=== PATIENT | female | born 1975 | race Caucasian/White ===

== ENCOUNTER 2022-09-26 18:49 | Emergency (ER) | payer OTHER, SELFPAY ==
--- NOTE | ~2022-09-26 | XR_ITS ---
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 RESULT: Lines, tubes, and devices: None. Lungs and pleura: Mid and lower lung reticulonodular opacities. Chronic minimal posterior costophren ic angle blunting. Cardiomediastinal silhouette: Stable. Prominent central pulmonary arteries as can be seen with pulmo nary arterial hypertension. Other: No acute osseous or upper abdominal finding. IMPRESSION: Pulmonary opacities may represent bronchiolitis, as can be seen with atypical infection, asthma, aspi ration, and small airways disease. Reviewed, dictated and finalized at location K. L FLOW MACHINE OPERATOR IMPRESSION: Pulmonary opacities may represent bronchiolitis, as can be seen with atypical i nfection, asthma, aspiration, and small airways disease.
[2022-09-26 19:05] VITALS: BP 135/64; PULSE 87; RESP 16; TEMP 36.1; O2SAT 99
--- NOTE | 2022-09-26 19:37 | PC.NURSE ---
Triage note reviewed and confirmed. Pt states 7 weeks ago was diagnosed w/ URI and was prescribed steroids, but I didn't take it because I am diabetic. Denies any sob. States here for sore throat. States it might be due to the coughing. a&ox4, NAD.
--- NOTE | 2022-09-26 19:51 | ED.GENADULT ---
HPI - General Adult General Chief complaint: Unspecified Stated complaint: coughing for weeks Time Seen by Provider: 09/26/22 19:38 History of Present Illness HPI narrative: Patient is a 47-year-old female with a history of asthma here for evaluation of cough for the past month. Patient states that she has been treated by her primary care doctor with prednisone and inhaled corticosteroids without relief of her symptoms. She states that she is now coughing up green sputum and has a sore throat from the amount of coughing that she has been doing. She denies any shortness of breath, fevers or chills, sick contacts. No hemoptysis. She has not yet been tested for COVID or flu. Related Data Allergies Allergy/AdvReac Type Severity Reaction Status Date / Time haloperidol Allergy Mild DROOLING, Verified 09/26/22 19:06 UNSTEADY GAIT, BLURRED VISION peach Allergy Mild RASH Verified 09/26/22 19:06 adhesive tape Allergy Unknown RASH Verified 09/26/22 19:06 divalproex sodium AdvReac Unknown HAIR LOSS Verified 09/26/22 19:06 ZIPRASIDONE HCL Allergy Mild AKASTHESIAS Uncoded 09/26/22 19:06 ZIPRASIDONE MESYLATE Allergy Mild AKASTHESIAS Uncoded 09/26/22 19:06 Dust Allergy Unknown NASAL Uncoded 09/26/22 19:06 CONGESTION Molds and Smuts Allergy Unknown NASAL Uncoded 09/26/22 19:06 CONGESTION Review of Systems Review of Systems: Gen: Denies fevers or chills Eyes: Denies eye pain or visual change ENT: Reports sore throat. Respiratory: Reports cough. Denies shortness of breath or cough CV: Denies chest pain or palpitations GI: Denies abdominal pain nausea, emesis or diarrhea : denies burning, urgency, frequency or hematuria Musculoskeletal: Denies back pain or muscle pain Neuro: Denies numbness, tingling, weakness or focal weakness Skin: Denies rash Except as documented, all other systems reviewed and negative Exam Narrative: APPEARANCE: Well appearing, no pain in distress, well-nourished. Head: Normocephalic and atraumatic. EYES: PERRLA/EOMI, conjunctivae clear NOSE: No nasal drainage EARS: External ear normal in appearance THROAT: Tonsils are 2+ bilaterally. Oropharynx is clear. Mucous membranes are moist. NECK: Supple. No adenopathy, no masses. RESPIRATORY: Scant expiratory wheezing in the right lower lung etienne. Airway patent, respirations nonlabored. Clear to auscultation bilaterally, no rales, rhonchi, wheezing. CARDIOVASCULAR: Regular rate and rhythm without murmurs, rubs, or gallops. ABDOMINAL: Normoactive bowel sounds. Soft, nontender, nondistended. No rebound tenderness or guarding. MUSCULOSKELETAL: Extremities are warm and well-perfused. Moves all extremities well. No edema. NEURO: Normal speech. No focal neurologic deficits. SKIN: Skin is warm and dry. No rashes. PSYCHIATRIC: Normal affect/mood. Course Vital Signs Vital signs: Vital Signs Temperature 97 F L 09/26/22 19:05 Pulse Rate 87 09/26/22 19:05 Respiratory Rate 16 09/26/22 19:05 Blood Pressure 135/64 09/26/22 19:05 Pulse Oximetry 99 09/26/22 19:05 Temperature 98 F 09/26/22 21:37 Pulse Rate 79 09/26/22 21:37 Respiratory Rate 18 09/26/22 21:37 Blood Pressure 131/81 09/26/22 21:37 Pulse Oximetry 99 09/26/22 21:37 Medical Decision Making MDM Narrative Medical decision making narrative: 47-year-old female with a history of asthma here for evaluation of a cough over the past month. She is nontoxic in appearance and has slight wheezing on exam, No signs or symptoms of respiratory distress. No hypoxia. Chest x-ray show pulmonary opacities that may represent atypical infection versus bronchiolitis. COVID, flu and strep test are negative. Patient feeling improved after breathing treatment in the ED. She be discharged home with antibiotics for pneumonia and PCP follow-up. She is low risk by the PSI and appropriate for outpatient management and follow-up. Return precautions were discussed and she
[2022-09-26 20:36] LABS: Strep Group A RT-PCR NOT DETECTED (Negative)
[2022-09-26] MEDS: ALBUTEROL SULFATE NEB 2.5 MG/3 ML INH INHALATION (20:43)
[2022-09-26 20:45] VITALS: PULSE 87; RESP 16
[2022-09-26 20:49] LABS: Influenza A QL RT-PCR Negative (Negative); Influenza B QL RT-PCR Negative (Negative); SARS-CoV-2 RNA PCR Negative
[2022-09-26 21:37] VITALS: BP 131/81; PULSE 79; RESP 18; TEMP 36.6; O2SAT 99
== END 2022-09-26 21:37 | disposition home or self-care (01) ==
PROVIDERS: Emergency Provider Physician Assistant
DX: J18.9 Pneumonia, unspecified organism (principal); Z20.822 Contact with and (suspected) exposure to COVID-19; J45.909 Unspecified asthma, uncomplicated
CPT/HCPCS: 71046; 87636; 87651; 94640; 99283

== ENCOUNTER 2023-02-22 14:05 | Outpatient (CLI) | payer MEDICARE, MEDICAID, SELFPAY ==
--- NOTE | ~2023-02-22 | CT_ITS ---
CT of the Abdomen and Pelvis: Indication: Right renal angiomyolipoma Technique: 2.5 mm axial scans were obtained through the abdomen and pelvis prior to and following in travenous administration of 100 cc of Omnipaque 350. Dose reduction technique was used on this scan b y utilizing automated exposure control and iterative reconstruction technique. The dose-length produc t (DLP) was 2342.21 mGy-cm. Findings: Scans through the lung bases demonstrate 3 noncalcified left lower lobe pulmonary nodules measuring 5-6 mm each (axial images 6, 7, 10). There is additional probable linear bibasilar pleural scarring with suspected chronic rounded atelectasis at the right lung base. There is diffuse fatty infiltration of the liver. There is hepatosplenomegaly, with liver measuring 2 2 cm in length, and spleen measuring 18.4 cm in length. Pancreas, gallbladder, adrenals and left kidn ey are within normal limits. There is a 1.4 cm right renal mass, with low density and no significant enhancement, compatible with angiomyolipoma. No evidence of aortic aneurysm. No lymphadenopathy. No bowel obstruction or bowel wall thickening. There is no evidence to suggest acute appendicitis. Images through the pelvis were performed. Urinary bladder unremarkable. No pelvic mass seen. No ascit es. Impression: 1.4 cm upper pole right renal angiomyolipoma. Diffuse fatty infiltration of liver. Hepatosplenomegaly, as detailed above. Calcified left basilar pulmonary nodules, as detailed above. According to Fleischner Society criteria , for a low-risk patient, no further follow-up required. For a high-risk patient, consider 12 month f ollow-up CT. Additional probable rounded atelectasis and right basilar pulmonary scarring. If there any prior outs [facility] CT scans of the chest or abdomen, these would be useful for comparison, to establish chronicity o f the pulmonary findings at the lung bases. Reviewed, dictated and finalized at location M. Impression: 1.4 cm upper pole right renal angiomyolipoma. Diffuse fatty infiltration of liver. Hepatosplenomegaly, as detailed above. Calcified left basilar pulmonary nodules, as detailed above. According to Fleis chner Society criteria, for a low-risk patient, no further follow-up required. For a high-risk patient, consider 12 month follow-up CT. Additional probable rounded atelectasis and right basilar pulmonary scarring. I f there any prior outside CT scans of the chest or abdomen, these would be usef ul for comparison, to establish chronicity of the pulmonary findings at the tom g bases.
--- NOTE | ~2023-02-22 | XR_ITS ---
XR abdomen/kub 1V 02/22/2023 14:28 INDICATION: Angiomyolipoma of the kidney. TECHNIQUE: KUB COMPARISON: None FINDINGS: Bowel gas pattern is normal. Moderate colonic fecal loading. There is no evidence of free a ir, mass, organomegaly, ascites or obstruction. No abnormal calculi are seen. The bones appear inta ct. There is levoscoliosis. IMPRESSION: 1: No acute abdominal abnormality identified. Reviewed, dictated and finalized at location A.
[2023-02-22 14:54] LABS: Estimated Glomerular Filt Rate > 60
== END 2023-02-22 14:06 | disposition home or self-care (01) ==
PROVIDERS: PCP Family Medicine Sports Medicine; Visit Provider Nurse Practitioner Adult Health
DX: D17.71 Benign lipomatous neoplasm of kidney (principal); K76.0 Fatty (change of) liver, not elsewhere classified
CPT/HCPCS: 74018; 74178; Q9967

== ENCOUNTER 2025-03-16 23:11 | Emergency (ER) | payer MEDICARE, MEDICAID, SELFPAY ==
[2025-03-16 23:12] VITALS: BP 155/88; PULSE 75; RESP 16; TEMP 36.8; O2SAT 100
--- OUTSIDE RECORDS SUMMARY | 2025-03-16 23:13 | XMS_ITS | Clinical Summary ---
Author Organization [facility] Address [address] [place] [phone] Phone Care Team Providers Care Awning Maker Name Role Phone Vita Sanches NP Primary Care Provider Brendan Metz MD Unavailable [phone] Allergies Active Allergy Reactions Criticality Noted Date Comments Haloperidol Agitation,Other (See comments),Vision changes Medium 04/11/2018 Drooling and walking funny Unable to walk and drools Loup Other (See comments) Low 06/01/2022 Ziprasidone Hcl Agitation,Other (See comments),Vision changes Medium 04/11/2018 Drooling and walking funny Unable to walk and drools Medications Alcohol Prep Pads pads, medicated 04/08/20 22 Active blood glucose diagnostic (glucose blood) stripIndications:Hg b A1c 7.0 06/01/22, On insulin daily. E11.65, Z79.4 To check blood sugar daily 100 each 11 06/01/20 22 Active albuterol 2.5 mg /3 mL (0.083 %) nebulizer solutionIndications :Moderate persistent asthma with exacerbation,Pneumo randolph of right lower lobe due to infectious organism Take 3 mL (2.5 mg total) by nebulization 4 (four) times a day as needed for wheezing or shortness of breath 75 mL 1 11/19/19 23 Active lamoTRIgine (LaMICtal) 100 mg tablet 01/12/20 23 Active ARIPiprazole (ABILIFY) 20 mg tablet Take 1 tablet (20 mg total) by mouth daily 10/12/19 24 Active OneTouch Verio Reflect Meter miscIndications:E11 .9, Z79.4. A1c 7.9 on 10/24/23 1 each by other route daily 1 each 10/24/19 24 Active levothyroxine (SYNTHROID) 25 mcg tablet TAKE 1 TABLET BY MOUTH DAILY 100 tablet 1 12/17/19 24 Active rosuvastatin (CRESTOR) 10 mg tabletIndications:H ypertriglyceridemia Take 1 tablet (10 mg total) by mouth daily 90 tablet 4 01/25/20 24 Active lisinopriL (PRINIVIL,ZESTRIL) 2.5 mg tabletIndications:T ype 2 diabetes mellitus with diabetic polyneuropathy, with long-term current use of insulin ([facility]),Type 2 diabetes mellitus with microalbuminuria, with long-term current use of insulin ([facility]) Take 1 tablet (2.5 mg total) by mouth daily 90 tablet 1 01/25/20 24 Active fenofibrate nanocrystallized (TRICOR) 145 mg tabletIndications:H ypertriglyceridemia Take 1 tablet (145 mg total) by mouth daily 90 tablet 4 01/25/20 24 Active lancets (OneTouch Delica Plus Lancet) 30 gauge [facility] USE TO TEST ONCE DAILY 100 each 1 02/14/20 24 Active pen needle, diabetic (BD Joi 2nd Gen Pen Needle) 32 gauge x 5/32 needleIndications:T ype 2 diabetes mellitus with diabetic polyneuropathy, with long-term current use of insulin ([facility]),Type 2 diabetes mellitus with microalbuminuria, with long-term current use of insulin ([facility]),Type 2 diabetes mellitus with hyperglycemia, with long-term current use of insulin ([facility]) INJECT 1 PEN NEEDLE UNDER THE SKIN DAILY 100 each 3 03/14/20 24 Active blood-glucose sensor deviceIndications:T ype 2 diabetes mellitus with diabetic polyneuropathy, with long-term current use of insulin ([facility]) 1 each every 14 (fourteen) days Please provide whichever sensors for CGM that her insurance will cover 2 each 06/20/20 24 Active flash glucose scanning reader (FreeStyle Kalyn 2 [place]) miscIndications:Typ e 2 diabetes mellitus with diabetic polyneuropathy, with long-term current use of insulin ([facility]) 1 each once for 1 dose Please provide whichever CGM reader insurance will cover. 1 each 06/20/20 24 Active metFORMIN (GLUCOPHAGE) 1,000 mg tablet TAKE 1 TABLET(1000 MG) BY MOUTH TWICE DAILY WITH MEALS 180 tablet 1 07/26/20 24 Active albuterol HFA (PROVENTIL HFA,VENTOLIN HFA,PROAIR HFA) 90 mcg/actuation inhalerIndications: Severe persistent asthma without complication ([facility]) Inhale 2 puffs every 4 (four) hours as needed for wheezing or shortness of breath 90 each 1 10/16/19 25 Active fluticasone-umeclid in-vilanter (Trelegy Ellipta) 100-62.5-25 mcg inhalerIndications: Severe persistent asthma without complication ([facility]) Inhale 1 puff daily 90 each 1 10/16/19 25 Active montelukast (SINGULAIR) 10 mg tabletIndications:C hronic rhinitis Take 1 tablet (10 mg total) by mouth nightly 90 tablet 3 10/16/19 25 Active insulin glargine (LANTUS) 100 unit/mL (3 mL) pen for injectionIndication s:Type 2 diabetes mellitus with diabetic polyneuropathy, with long-term current use of insulin ([facility]) Inject 22 Units under the skin daily 10/25/19 25 Active semaglutide (OZEMPIC) 2 mg/dose (8 mg/3 mL) pen injector injectionIndication s:Type 2 diabetes mellitus with diabetic polyneuropathy, with long-term current use of insulin ([facility]) Inject 2 mg under the skin every 7 days 3 mL 2 01/31/20 25 Active cholecalciferol (VITAMIN D-3) 3,000 unit tabletIndications:V itamin D deficiency Take 1 tablet (3,000 Units total) by mouth daily 90 capsule 3 01/31/20 25 Active meloxicam (MOBIC) 15 mg tabletIndications:S ynovitis of hand,Positive CHRISSIE (antinuclear antibody),Polyarthr algia TAKE 1 TABLET(15 MG) BY MOUTH DAILY WITH BREAKFAST 90 tablet 08/20/19 23 025 Disconti nued(The rapy complete d) Active Problems Problem Noted Date Diagnosed Date Lipoma of right upper extremity 01/30/2025 Assessment & Plan (01/30/2025 8:32 AM CDT): -new complaint, chronic -patient endorses having a lipoma in her underarm of her right arm that has been more bothersome lately -Patient expressed interest in having an evaluation possible removal of this -Ultrasound of right under arm ordered to verify mass -Referral to surgery placed -Continue current treatment plan Preventative health care 10/24/2024 Assessment & Plan (10/24/2024 10:51 AM CDT): - New or chronic worsening conditions: hand pain, congestion/cough - Mental health: no significant psychiatric/mental health conditions affecting her day to day functioning - Dental health: Up to date with regular dental care and cleaning. Discussed importance of regular tooth brushing, flossing, and dental visits. - Nutrition: Stressed importance of moderation in sodium/caffeine intake, saturated fat and cholesterol, caloric balance, sufficient intake of fresh fruits, vegetables - Exercise: Stressed the importance of regular exercise - Immunizations: Age and sex appropriate immunizations reviewed and offered - Cervical Cancer screening: Up-to-date - Breast Cancer screening: Up-to-date - Colon cancer screening: Up-to-date, due in 2025 - Lung cancer screening: Not indicated at this time - Bone desnity/osteoporosis screening: Not indicated at this time - control: hysterectomy Left hand pain 10/24/2024 Assessment & Plan (10/25/2024 8:36 AM CDT): -New complaint, chronic -Patient endorses ongoing left hand pain that feels like her hand movement is catching on something -Previous history of carpal tunnel including surgical intervention on right hand -OTC medication and stretches provide minimal relief -Referral to Plastic surgery/hand specialists placed -Continue current treatment plan Class 1 obesity with body ma ss index (BMI) of 34.0 to 34.9 in adult 06/20/2024 Assessment & Plan (01/30/2025 8:27 AM CDT): Wt Readings from Last 3 Encounters: 01/30/25 101.5 kg (223 lb 11.2 oz) 10/24/24 99.3 kg (219 lb) 10/15/24 101.2 kg (223 lb) Body mass index is 34.52 kg/m . -Stable, not at goal of <30 bmi -Discussed recommendations for exercise at least 30 minutes moderate to vigorous exercise as tolerated most days of the week. (minimum 150 minutes weekly) -Discussed importance of well-balanced diet Assessment & Plan (10/25/2024 7:08 AM CDT): Wt Readings from Last 3 Encounters: 10/24/24 99.3 kg (219 lb) 10/15/24 101.2 kg (223 lb) 06/25/24 103.4 kg (228 lb) Body mass index is 33.79 kg/m . -Stable, not at goal of <30 bmi -Discussed recommendations for exercise at least 30 minutes moderate to vigorous exercise as tolerated most days of the week. (minimum 150 minutes weekly) -Discussed importance of well-balanced diet Assessment & Plan (06/20/2024 10:13 AM MAGAZINE JOURNALIST): Wt Readings from Last 3 Encounters: 06/19/24 100.8 kg (222 lb 4.8 oz) 02/13/24 106.4 kg (234 lb 9.6 oz) 02/09/24 102.5 kg (226 lb) Body mass index is 34.01 kg/m . -Stable, not at goal of <30 bmi -Discussed recommendations for exercise at least 30 minutes moderate to vigorous exercise as tolerated most days of the week. (minimum 150 minutes weekly) -Discussed importance of well-balanced diet Acanthosis nigricans, acquired 01/25/2024 Assessment & Plan (01/25/2024 5:29 PM CDT): Chronic. Stable. Changes noted to multiple extensor surfaces of her of her knuckles as well as extensor surface of the bilateral elbow. Reviewed diagnosis. Likely related to obesity and her insulin resistant. Thoracic aortic aneurysm without rupture, unspec ified part 10/24/2023 Assessment & Plan (01/25/2024 5:28 PM CDT): Chronic. Asymptomatic. Still needs to get in with Cardiothoracic surgery. We will go ahead and give her a new referral. Patient would like to see the [facility] doctors instead of the 1 previously referred. Referral ordered. Keep blood pressure controlled Assessment & Plan (10/24/2023 6:41 PM CDT): Borderline for thoracic aneurysm on recent CT chest. Ascending thoracic aorta measured at 4.4 cm. She has been referred to see CTS but still has to schedule. No signs of decompensation. Encouraged good blood pressure control. Given bradycardia may defer beta-juan for now but may be something to consider in the future if heart rate trends up. Reviewed signs and symptoms seek evaluation. Patient was given the contact information for the CTS surgeon for consultation Multiple pulmonary nodules 03/15/2023 Assessment & Plan (10/24/2023 6:38 PM CDT): Chronic. Mostly nodules were not concerning and just need routine monitoring. She has a wearing apparel presser who is working with her. Assessment & Plan (03/15/2023 10:25 AM CDT): Patient with low-level persistent cough. Numerous pulmonary nodules on CT. Keep upcoming appointment with pulmonology. She additionally has a repeat CT scheduled Renal angiomyolipoma 03/15/2023 Assessment & Plan (10/24/2023 6:38 PM CDT): Chronic. Saw Urology previously. They plan to just monitor as this is a low risk lesion Assessment & Plan (03/15/2023 10:25 AM CDT): Incidental finding on prior CT chest. Urology is monitoring but unlikely to be malignant Mixed dyslipidemia 09/16/2022 Assessment & Plan (01/30/2025 8:27 AM CDT): -chronic, suboptimally controlled -currently takes rosuvastatin 10 mg, fenofibrate 145 mg -Discussed importance of well-balanced diet -will recheck lab values in one month -continue current treatment plan Orders: Lipid panel; Future Assessment & Plan (10/25/2024 7:03 AM CDT): -chronic, controlled -currently takes rosuvastatin 10 mg, fenofibrate 145 mg -Discussed importance of well-balanced diet -will recheck lab values -continue current treatment plan Assessment & Plan (06/20/2024 7:05 AM MAGAZINE JOURNALIST): -chronic, stable -currently takes rosuvastatin 10 mg, fenofibrate 145 mg -Discussed importance of well-balanced diet -will recheck lab values at future visit -continue current treatment plan Assessment & Plan (01/25/2024 5:28 PM CDT): Chronic. Tolerates fenofibrate. Add rosuvastatin as needs improvement in triglycerides. Target LDL <55) Assessment & Plan (10/24/2023 6:38 PM CDT): Chronic. Tolerates fenofibrate. Monitor cholesterol med levels. If LDL is elevated above goal less than 70 then consider starting a cholesterol medication within the statin class Assessment & Plan (03/15/2023 10:23 AM CDT): Chronic. Work on diabetic diet, exercise, weight loss. Continue cholesterol medication. Consider adding statin in the future Asthma 06/01/2022 Assessment & Plan (10/25/2024 8:37 AM CDT): -chronic, suboptimally controlled -patient currently prescribed albuterol rescue inhaler, Trelegy maintenance inhaler, Singulair 10 mg, albuterol nebulizer treatments as needed -patient reports that they are currently experiencing an exacerbation of the asthma including shortness of breath, wheezing, cough -patient reports she has been using her rescue inhaler more frequently over the past few days -Prednisone taper prescribed -Chest x-ray ordered; no infectious process noted -continue current treatment plan Assessment & Plan (06/20/2024 10:09 AM MAGAZINE JOURNALIST): -chronic, stable -patient currently prescribed albuterol rescue inhaler, Trelegy maintenance inhaler, Singulair 10 mg, albuterol nebulizer treatments as needed -patient reports their asthma is fairly well-controlled on current regimen -patient reports she has been using her rescue inhaler more frequently over the past few days -See acute bacterial bronchitis A&P -continue current treatment plan Assessment & Plan (01/25/2024 5:27 PM CDT): Chronic. Relatively controlled. Continue Trelegy and p.r.n. albuterol. Encouraged to stops smoking marijuana or any other inhaled lung irritants. Assessment & Plan (10/24/2023 6:36 PM CDT): Chronic. Borderline control. Stressed compliance with Trelegy. Continue as needed albuterol. Manage triggers. Keep upcoming follow up with pulmonology Assessment & Plan (03/15/2023 10:21 AM CDT): Borderline control. Continue inhalers. Keep upcoming appointment with pulmonology given multiple pulmonary nodules on CT scan 3 months ago. Manage allergies Vitamin D deficiency 06/01/2022 Assessment & Plan (01/30/2025 8:27 AM CDT): -chronic, suboptimally controlled -patient currently takes vitamin D3 supplement -increase vitamin d supplement in 3,000 units daily -continue current treatment plan Orders: cholecalciferol (VITAMIN D-3) 3,000 unit tablet; Take 1 tablet (3,000 Units total) by mouth daily Assessment & Plan (10/25/2024 7:07 AM CDT): -chronic, controlled -patient previously took vitamin D3 supplement -will recheck lab value -continue current treatment plan Assessment & Plan (10/24/2023 6:37 PM CDT): Chronic. Check and replete as needed Low vitamin B12 level 06/01/2022 Assessment & Plan (10/25/2024 7:07 AM CDT): Lab Results Component Value Date VITB12 353 01/23/2024 -chronic, controlled -Previously took vitamin B12 supplement -most recent vitamin B12 level noted above -continue current treatment plan Assessment & Plan (10/24/2023 6:37 PM CDT): Chronic. Check and replete as needed Type 2 diabetes mellitus wit h diabetic polyneuropathy, with long-term current use of insulin 06/01/2022 Assessment & Plan (01/30/2025 8:27 AM CDT): Lab Results Component Value Date HGBA1C 7.0 (H) 11/14/2024 -chronic, controlled -patient currently takes metformin 1000 bid, ozempic 1 mg weekly, glargine 22 units nightly -patient reports checking blood sugar regularly at home -reiterated importance of diabetic foot and eye exams -most recent hemoglobin A1c shown above - worsened -will recheck lab work in one month -increase ozempic to 2 mg weekly -continue current treatment plan Orders: semaglutide (OZEMPIC) 2 mg/dose (8 mg/3 mL) pen injector injection; Inject 2 mg under the skin every 7 days Hemoglobin A1c; Future Assessment & Plan (10/25/2024 7:08 AM CDT): Lab Results Component Value Date HGBA1C 5.6 06/19/2024 -chronic, well-controlled -patient currently takes Lantus 30 units daily, metformin 1000 mg, semaglutide 1 mg weekly, glipizide 5 mg -patient reports checking blood sugar regularly at home, but states she is having a harder time poking her fingers -reiterated importance of diabetic foot and eye exams -most recent hemoglobin A1c shown above -Lantus decreased to 22 units, glipizide discontinued -Follow up in 3 months for re-evaluation -continue current treatment plan Assessment & Plan (06/20/2024 10:03 AM MAGAZINE JOURNALIST): Lab Results Component Value Date HGBA1C 5.6 06/19/2024 -chronic, stable -patient currently takes Lantus 30 units daily, metformin 1000 mg, semaglutide 1 mg weekly, glipizide 5 mg -patient reports checking blood sugar regularly at home, but states she is having a harder time poking her fingers -reiterated importance of diabetic foot and eye exams -most recent hemoglobin A1c shown above -repeat A1c much improved, we will decrease Lantus by 3 units -continue current treatment plan Assessment & Plan (01/25/2024 5:26 PM CDT): Diabetes, type II: chronic condition. Control: suboptimal. Needs improvement. Continue current medication but increase Ozempic to 1 mg. If needed we can go up to 2 mg. Really work on diet, exercise, weight loss. Briefly diabetic education performed. Updated foot exam was performed in office today. Discussed routine foot care Struggles some with her neuropathy. Previously failed gabapentin and Lyrica. Monitor. Avoid walking barefoot On GERMAN- I or ARB: yes Diabetes Education Reviewed diabetic disease process, standards of care, and possible disease complications I have discussed the following steps for improving diabetic care: diabetic diet with healthy meals that are low salt, low fat, high fiber daily 30 minutes of exercise (45-60 minutes if trying to lose weight) Encouraged to loose weight if overweight/obese, or maintain a healthy body weight if BMI normal home glucose monitoring and goals (fast 70-130 and 2 hr PP <180) HgA1C goal <7% If checking home bp, goal less than 140/90 on average, even better if <130/85 Check feet daily for sores, dryness, cracking; use daily moisturizer if needed and invest in good shoes See eye doctor at least once per year and have report sent to us Assessment & Plan (10/24/2023 6:37 PM CDT): Chronic. Uncontrolled. Needs improvement. Increase insulin to 30 units a day. Continue other medication. Stress diabetic diet, exercise and weight loss Assessment & Plan (03/15/2023 10:22 AM CDT): Chronic. Borderline control. Counseled on diabetic diet, exercise, weight loss. Encouraged routine blood sugar monitoring. Discussed risk with doing insulin injections without checking her blood sugar. Patient's eye exam is reportedly up-to-date but we never got the report. Borderline personality disorder 06/01/2022 Assessment & Plan (10/25/2024 8:35 AM CDT): -chronic, controlled -patient currently takes Abilify 20 mg -follows with psychiatry -patient denies any worsening of depressed mood, thoughts of harming herself or others, or worsening anxiety -continue current treatment plan Assessment & Plan (06/20/2024 10:10 AM MAGAZINE JOURNALIST): -chronic, stable -patient currently takes Abilify 20 mg -follows with psychiatry -patient denies any worsening of depressed mood, thoughts of harming herself or others, or worsening anxiety -continue current treatment plan Assessment & Plan (01/25/2024 5:26 PM CDT): Chronic. Stable. Continue working with Psychiatry. Monitor Assessment & Plan (10/24/2023 6:37 PM CDT): Chronic. Continue care per Psych Assessment & Plan (03/15/2023 10:21 AM CDT): Chronic. Continue medication and care per Psychiatry Attention deficit hyperactivity disorder (ADHD) 06/01/2022 Overview (06/01/2022): [facility] Assessment & Plan (10/24/2023 6:38 PM CDT): Chronic. Continue medication and care per Psychiatry. Stable Assessment & Plan (03/15/2023 10:22 AM CDT): Chronic. Continue medication and care per Psychiatry. Defer care to them Positive CHRISSIE (antinuclear antibody) 06/01/2022 Assessment & Plan (03/15/2023 10:24 AM CDT): Rheumatologic evaluation was essentially negative. It is not felt that her joint issues are related to autoimmune disease. Rheumatology will have her just follow up as needed Generalized anxiety disorder 05/03/2022 Assessment & Plan (10/25/2024 8:35 AM CDT): -chronic, controlled -patient currently takes Abilify 20 mg, Lamictal 100 mg -follows with psychiatry -patient denies any worsening of depressed mood, thoughts of harming herself or others, or worsening anxiety -continue current treatment plan Assessment & Plan (06/20/2024 10:10 AM MAGAZINE JOURNALIST): -chronic, stable -patient currently takes Abilify 20 mg, Lamictal 100 mg -follows with psychiatry -patient denies any worsening of depressed mood, thoughts of harming herself or others, or worsening anxiety -continue current treatment plan Assessment & Plan (01/25/2024 5:27 PM CDT): Chronic. Stable. Continue medication care per Psychiatry. Assessment & Plan (10/24/2023 6:37 PM CDT): Chronic. Stable on medication. Continue Assessment & Plan (03/15/2023 10:21 AM CDT): Chronic. Relatively well controlled. Continue medication and care per Psychiatry Hypothyroidism 06/12/2021 Assessment & Plan (10/25/2024 7:04 AM CDT): Lab Results Component Value Date TSH 3.79 01/23/2024 -chronic, controlled -patient currently takes Synthroid 25 mcg daily -most recent TSH within normal range -Will recheck lab value -continue current treatment plan Assessment & Plan (06/20/2024 7:08 AM MAGAZINE JOURNALIST): Lab Results Component Value Date TSH 3.79 01/23/2024 -chronic, stable -patient currently takes Synthroid 25 mcg daily -most recent TSH within normal range -continue current treatment plan Assessment & Plan (01/25/2024 5:27 PM CDT): Chronic. on levothyroxine 25 mcg daily. Takes as ordered. TSH at goal. Continue current dose Assessment & Plan (10/24/2023 6:37 PM CDT): Chronic. Relatively euthyroid. Continue Rx Assessment & Plan (03/15/2023 10:21 AM CDT): Chronic. Clinically euthyroid. Continue current thyroid medication Hepatic steatosis 04/10/2021 Assessment & Plan (10/24/2023 6:38 PM CDT): Chronic. Suboptimally controlled. Encouraged healthy diet, exercise and weight loss Assessment & Plan (03/15/2023 10:21 AM CDT): Chronic. Encouraged healthy diet, exercise, weight loss H. pylori infection 04/10/2021 Sensorineural hearing loss (SNHL) of both ears 0 01/17/2020 Overview (10/24/2023): uses aids Bipolar 1 disorder 06/14/2018 Assessment & Plan (10/25/2024 8:35 AM CDT): -chronic, controlled -patient currently takes Abilify 20 mg -follows with psychiatry -patient denies any worsening of depressed mood, thoughts of harming herself or others, or worsening anxiety -continue current treatment plan Assessment & Plan (06/20/2024 10:10 AM MAGAZINE JOURNALIST): -chronic, stable -patient currently takes Abilify 20 mg -follows with psychiatry -patient denies any worsening of depressed mood, thoughts of harming herself or others, or worsening anxiety -continue current treatment plan Assessment & Plan (01/25/2024 5:27 PM CDT): Chronic. Stable. Continue medication and care per Psychiatry. Patient is able to contract for safety Assessment & Plan (10/24/2023 6:37 PM CDT): Chronic. Some recent manic symptoms that are improving with since medication adjustment. Monitor. Discussed if any severe symptoms to seek urgent evaluation Assessment & Plan (03/15/2023 10:21 AM CDT): Chronic. Relatively stable on medication. 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 Mental status has been stable Urinary incontinence 06/14/2018 Assessment & Plan (01/25/2024 5:30 PM CDT): Chronic. Continues to struggle some. Continue working with Urology. Assessment & Plan (10/24/2023 6:38 PM CDT): Chronic. Follows with Urology. Plans bladder sling at some point but has not yet been done. Monitor symptoms. Assessment & Plan (03/15/2023 10:25 AM CDT): Patient is working with Urology. She reports that they are planning to do a bladder suspension in the future S/P complete hysterectomy 06/14/2018 Resolved Problems Problem Noted Date Diagnosed Date Resolved Date Central adiposity 01/25/2023 01/25/2024 Assessment & Plan (03/15/2023 10:23 AM CDT): Patient saw Endocrinology. Evaluation was negative for Danielle's. Counseled patient on healthy diet, exercise, weight loss Assessment & Plan (01/25/2023 4:07 PM CDT): Pathophysiology of pituitary adrenal axis was explained to the patient Some clinical features of hypercortisolism Will request 1 mg dexamethasone suppression test Further recommendations to follow, if indicated Peripheral neuropathy 06/01/20222023 Type 2 diabetes mellitus with hyperglycemia 06/01/2022 03/15/2023 Type 2 diabetes mellitus wit h microalbuminuria, with long-term current use of insulin 06/01/2022 06/19/2024 Assessment & Plan (01/25/2024 5:26 PM CDT): Diabetes, type II: chronic condition. Control: suboptimal. Needs improvement. Continue current medication but increase Ozempic to 1 mg. If needed we can go up to 2 mg. Really work on diet, exercise, weight loss. Briefly diabetic education performed. Updated foot exam was performed in office today. Discussed routine foot care Struggles some with her neuropathy. Previously failed gabapentin and Lyrica. Monitor. Avoid walking barefoot On GERMAN- I or ARB: yes. Continue for microalbuminuria Diabetes Education Reviewed diabetic disease process, standards of care, and possible disease complications I have discussed the following steps for improving diabetic care: diabetic diet with healthy meals that are low salt, low fat, high fiber daily 30 minutes of exercise (45-60 minutes if trying to lose weight) Encouraged to loose weight if overweight/obese, or maintain a healthy body weight if BMI normal home glucose monitoring and goals (fast 70-130 and 2 hr PP <180) HgA1C goal <7% If checking home bp, goal less than 140/90 on average, even better if <130/85 Check feet daily for sores, dryness, cracking; use daily moisturizer if needed and invest in good shoes See eye doctor at least once per year and have report sent to us Assessment & Plan (10/24/2023 6:37 PM CDT): Chronic. Uncontrolled. Continue GERMAN inhibitor for renal protection. If continues to struggle with diabetes we can always consider adding an SGLT2 for renal benefits Assessment & Plan (03/15/2023 10:22 AM CDT): Chronic. Monitor renal function. Work on diabetic control. On GERMAN inhibitor Benign hypertension 06/12/2021 10/24/19 24 Multifocal pneumonia 06/12/2021 024 Family history of colonic polyps 11/17/2020 01/25/2024 Acquired intellectual disability 06/14/2018 10/24/2023 Encounters Date Type Department Care Team Description 03/15/2025 10:55 AM CDT Anesthesia Event [facility] Operating Room 1 [place] [address] Adele Jackson MD Alexander, Jeffrey Michael, 03/15/2025 10:40 AM CDT - 03/15/2025 11:40 AM CDT Surgery [facility] Operating Room 1 [place] [address] Myron Espino MD EXCISION OF LIPOMA OF RIGHT ARM 03/15/2025 8:59 AM CDT - 03/15/2025 12:57 PM CDT Hospital Encounter [facility] Operating Room 1 [place] [address] Myron Espino MD Lipoma of right upper extremity Discharge Disposition: Discharge to home or self care 03/08/2025 Nurse Triage [facility] Primary Care at [address] [place] [phone] Vita Sanches NP 03/08/2025 Telephone [facility] Medical [facility] Primary Care at [address] [place] [phone] Vita Sanches NP Recommendation Request 03/01/2025 Results Follow-Up [facility] Primary Care at [address] [place] [address] Radha Sanchez NP US Upper Extremity Right Limited 02/14/2025 9:30 AM CDT Office Visit [facility] [address] [place] [phone] Myron Espino MD Lipoma of right upper extremity 02/13/2025 ACO Medication Access [facility] Care Organization [address] [place] [id number] Maria M Blanchard CPhT 02/08/2025 3:36 PM CDT - 02/08/2025 11:59 PM CDT Hospital Encounter [facility] 1 [place] [address] Lipoma of right upper extremity; Right arm pain Discharge Disposition: Discharge to home or self care 01/30/2025 8:00 AM CDT Office Visit [facility] Primary Care at [address] [phone] Vita Sanches NP Type 2 diabetes mellitus with diabetic polyneuropathy, with long-term current use of insulin (HCC) (Primary Dx); Mixed dyslipidemia; Lipoma of right upper extremity; Vitamin D deficiency; Class 1 obesity with body mass index (BMI) of 34.0 to 34.9 in adult, unspecified obesity type, unspecified whether serious comorbidity present 01/30/2025 Telephone [facility] Primary Care at [address] [phone] Vita Sanches NP Med Refill 01/30/2025 Orders Only [facility] Medical [facility] Primary Care at [address] [phone] Vita Sanches NP Right arm pain (Primary Dx); Lipoma of right upper extremity from Last 3 Months Immunizations Immunization Administration Dates Next Due Influenza, Unspecified 10/24/2024(Deferr ed: Patient Refused),05/01/2024(Deferred: Patient Refused),08/01/2022(Deferred: Patient Refused) Moderna SARS-CoV-2 Monovalen t Vaccination (12+ YRS) 10/17/2020,09/19/2020 Pneumococcal Conjugate Pcv20 01/25/2024 Pneumococcal Polysaccharide PPV23 06/17/2021 Surgical History Surgery Date Site/Laterality Comments HYSTERECTOMY W/ BILATERAL SALPINGOOPHORECTOMY for bleeding. had associated ovarian cyst CARPAL TUNNEL RELEASE Left GANGLION CYST EXCISION left hand PLASTIC SURGERY nose job, deviated septum repair, chin implant TYMPANOSTOMY TUBE PLACEMENT PATELLA SURGERY Bilateral bilateral lateral release ULNAR NERVE TRANSPOSITION Left ? release vs transposition HYSTERECTOMY COSMETIC SURGERY 1990 Medical History Medical History Date Comments Bipolar 1 disorder (HCC) High cholesterol Fatty liver Hypothyroidism PTSD (post-traumatic stress disorder) Diabetes (HCC) Diabetic neuropathy (HCC) Female bladder prolapse Developmental delay 06/01/2022 Generalized anxiety disorder 05/03/2022 Peripheral neuropathy 06/01/2022 Vitamin D deficiency 06/01/2022 Low vitamin B12 level 06/01/2022 Asthma 06/01/2022 Borderline personality disorder (HCC) 06/01/2022 Attention deficit hyperactivity disorder (ADHD) 06/01/2022 care per [facility] Sensorineural hearing loss (SNHL) of both ears 0 01/17/2020 uses aids NAFLD (nonalcoholic fatty liver disease) 022 GERD (gastroesophageal reflux disease) Arthritis Depression Bulimia nervosa Type 2 diabetes mellitus Family History Medical History Relation Name Comments Depression Brother Jayme Mental illness Daughter Kay Obesity Daughter Kay Rashes / Skin problems Daughter Kay Danielle syndrome Father Terrell Diabetes Father Terrell Hypertension Father Terrell Neuropathy Father Terrell brain tumor Father Terrell Cancer Father's Brother 1 Kirk Diabetes Father's Brother 1 Kirk Cancer Father's Brother 2 Lázaro Breast cancer Father's Sister 1 Deidre Diabetes Father's Sister 1 Deidre Diabetes Father's Sister 2 Gema Heart attack Father's Sister 2 Gema Cancer Maternal Grandfather Max Heart attack Maternal Grandfather Max Heart disease Maternal Grandfather Max Cancer Maternal Grandmother Shelba Allergy (severe) Mother Erika Arthritis Mother Erika Asthma Mother Erika defects Mother Erika Hearing loss Mother Erika Hypertension Mother Erika Lung disease Mother Erika unable to use l ungs fully. on oxygen. ? weak diaphragm vs restrictive lung disease Obesity Mother Erika No Known Problems Paternal Grandfather Heart disease Paternal Grandmother Roma Relation Name Status Comments Brother Jayme Alive Daughter Kay Alive Father Terrell Alive Father's Brother 1 Kirk Father's Brother 2 Lázaro Father's Sister 1 Deidre Alive Father's Sister 2 Gema Maternal Grandfather Max Maternal Grandmother Debbie Mother Erika Alive Paternal Grandfather Paternal Grandmother Roma Social History Tobacco Use Types Packs/Day Years Used Date Smoking Tobacco: Never Smokeless Tobacco: Never Tobacco Cessation:Counseling Given: Not Answered Alcohol Use Standard Drinks/Week Comments Never 0 (1 standard drink = 0.6 oz pur e alcohol) PHQ-2 Answer Date Recorded PHQ-2 Total Score (If total score is 3 or more points, staff should administer the PHQ-9) 0 01/30/2025 PHQ-9 Answer Date Recorded PHQ-9 Total Score 2 10/24/2023 AUDIT-C Answer Date Recorded Q1: How often do you have a drink containing alcohol? Never 03/15/2025 Q2: How many drinks containi ng alcohol do you have on a typical day when you are drinking? Patient does not drink Q3: How often do you have si x or more drinks on one occasion? Never 03/15/2025 Personal Safety Answer Date Recorded Have you ever been in or are you currently in a harmful physical or emotional relationship or is someone making you feel afraid or unsafe? Denies 03/15/2025 Comments No Sex and Gender Information Value Date Recorded Sex Assigned at Not on file Legal Sex Female 2:07 PM CDT Gender Identity Not on file Sexual Orientation Not on file Obstetrics History Para Term AB IAB SAB Ectopic Multiple Livin g Live Births 1 1 1 Date Outcome GA Total Labor Labor/2nd/3rd Weight Sex Type Anes PTL Karissa A1 A5 Name Clin Term Last Filed Vital Signs Vital Sign Reading Time Taken Comments Blood Pressure 145/74 03/15/2025 12:50 PM CDT Pulse 64 03/15/2025 12:50 PM CDT Temperature 36.4 C (97.5 F) 03/15/2025 12:50 PM CDT Respiratory Rate 18 03/15/2025 12:50 PM CDT Oxygen Saturation 97% 03/15/2025 12:50 PM CDT Inhaled Oxygen Concentration - - Weight 99.5 kg (219 lb 5.7 oz) 03/15/2025 9:00 A M CDT Height 170.2 cm (5' 7) 03/15/2025 9:00 AM CDT Body Mass Index 34.36 03/15/2025 9:00 AM CDT Plan of Treatment Health Maintenance Due Date Last Done Comments DTaP/Tdap/Td Vaccine (1 - Tdap) 1987 Dilated Eye Exam 04/08/2024 04/08/2023 Albumin Creatinine Ratio, Urine 01/22/2025 01/23/2024, 06/01/2022 Breast Cancer Screening-Mammogram 03/13/2025 03/13/2024, 10/10/2019 Influenza Vaccine (#1) 2025 Hemoglobin A1C 05/16/2025 11/14/2024, 06/01, 01/25/2024, Additional history exists Covid-19 Vaccine () 06/19/2025 10/17/2020, 09/19/2020 Postponed from 04/01/2024 (Patient declined, but will receive in the future) Foot Exam 10/24/2025 10/24/2024, 12/31, 10/24/2023, Additional history exists Regular Well Visit/Exam 18-64 10/24/2025 10/24/2024, 10/24/2024, 10/24/2023 Lipid Panel 11/14/2025 11/14/2024, 12/31, 05/04/2023, Additional history exists eGFR 11/14/2025 11/14/2024, 06/01, 01/23/2024, Additional history exists Colon Cancer Screening-Colonoscopy 11/17/2025 11/17/2020 Depression Screening 01/30/2026 01/30/2025, 10/24/2024, 06/19/2024, Additional history exists Hepatitis C Screening Completed 12/08/2022 Pneumococcal vaccine <65 Completed 01/25/2024, 06/01 Hepatitis B Screening Completed 11/14/2024 Procedures Procedure Name Priority Date/Time Associated Diagnosis Comments POCT GLUCOSE DEVICE Routine 03/15/2025 1 1:54 AM CDT POCT GLUCOSE DEVICE Routine 03/15/2025 9 :28 AM CDT US UPPER EXTREMITY RIGHT LIMITED Schedule Routine, Read Routine (OP Routine) 02/08/2025 4:01 PM CDT Lipoma of right upper extremity Right arm pain COMPREHENSIVE METABOLIC PANEL Routine 11/14/2024 10:14 AM CDT Preventative health care HEMOGLOBIN A1C Routine 11/14/2024 10:14 AM CDT Type 2 diabetes mellitus with diabetic polyneuropathy, with long-term current use of insulin (HCC) LIPID PANEL Routine 11/14/2024 10:14 AM CDT Preventative health care Mixed dyslipidemia DIAGNOSTIC MAMMOGRAM BILATERAL W ADRI Schedule Routine, Read Routine (OP Routine) 03/13/2024 10:15 AM CDT Encounter for screening mammogram for malignant neoplasm of breast Mass of right breast, unspecified quadrant Lumpy breasts, right ALBUMIN CREATININE RATIO, URINE Routine 01/23/2024 10:29 AM CDT Annual physical exam Type 2 diabetes mellitus with diabetic polyneuropathy, with long-term current use of insulin (HCC) Type 2 diabetes mellitus with microalbuminuria, with long-term current use of insulin (HCC) Type 2 diabetes mellitus with proteinuria (HCC) DIABETES EYE EXAM Routine 04/08/2023 HEPATITIS C ANTIBODY Routine 12/08/2022 8:52 AM CDT Pain in other joint Pain in both hands Neuropathy Encounter for medication monitoring COLONOSCOPY Routine 11/17/2020 from Last 3 Months or Most Recently Relevant to Health Maintenance Results * POCT glucose (03/15/2025 11:54 AM CDT) Glucose, POC 144 70 - 199 mg/dL Blood 03/15/2025 11:5 4 AM CDT 03/15/2025 11:54 AM CDT Myron Espino MD LAB POCT ORDERABLES - DEVICE Final Result [facility] ([facility]) [address] [facility] [place] [address] * POCT glucose (03/15/2025 9:28 AM CDT) Glucose, POC 178 70 - 199 mg/dL Blood 03/15/2025 9:28 AM CDT 03/15/2025 9:28 AM CDT Myron Espino MD LAB POCT ORDERABLES - DEVICE Final Result Performing Organization Address [facility] Co de Phone Number [facility]OREN DÍAZ (MAREN[place]) [address] [facility] [place] [address] * US Upper Extremity Right Limited (02/08/2025 4:01 PM CDT) Anatomical Region Laterality Modality Upper Extremities Right Ultrasound 03/01/2025 7:27 AM CDT Narrative 03/01/2025 7:28 AM CDT EXAM DESCRIPTION: US UPPER EXTREMITY RIGHT LIMITED REASON FOR STUDY: Right posterior upper arm palpable lump for a couple years. TECHNIQUE: A Dynamic assessment was performed of the localized site designated by the patient by the composite bond worker, with selected grayscale and color Doppler images acquired and recorded in PACS. COMPARISON: None available FINDINGS: SKIN AND SUBCUTANEOUS TISSUES: Solid focus identified appears to correspond with palpable abnormality. Measures 4.1 x 3.8 x 1.0 cm. No fluid components or echogenic foci to suggest calcification. Internal flow without hypervascularity. Striated echotexture similar to surrounding fat could indicate presence of underlying lipoma. DEEP SOFT TISSUES/MUSCLES: No masses. No fluid collections. No edema. OTHER: No other significant finding. IMPRESSION: 4.1 cm solid lesion appears to correspond with palpable abnormality. This could indicate a lipoma. THIS IS AN ELECTRONICALLY VERIFIED FINAL REPORT 03/01/2025 7:28 AM - Electronically signed by Derrell Simpson M.D. RB: ELIOT Report ID: [id number] Reading Location: [place] [address] Procedure Note Derrell Simpson MD - 03/01/2025 EXAM DESCRIPTION: US UPPER EXTREMITY RIGHT LIMITED REASON FOR STUDY: Right posterior upper arm palpable lump for a couple years. TECHNIQUE: A Dynamic assessment was performed of the localized site designated by the patient by the composite bond worker, with selected grayscale and color Doppler images acquired and recorded in PACS. COMPARISON: None available FINDINGS: SKIN AND SUBCUTANEOUS TISSUES: Solid focus identified appears to correspond with palpable abnormality. Measures 4.1 x 3.8 x 1.0 cm. No fluid components or echogenic foci tosuggest calcification. Internal flow without hypervascularity. Striatedechotexture similar to surrounding fat could indicate presence of underlying lipoma. DEEP SOFT TISSUES/MUSCLES: No masses. No fluid collections. No edema. OTHER: No other significant finding. IMPRESSION: 4.1 cm solid lesion appears to correspond with palpable abnormality. This could indicate a lipoma. THIS IS AN ELECTRONICALLY VERIFIED FINAL REPORT 03/01/2025 7:28 AM - Electronically signed by Derrell Simpson M.D. RB: ELIOT Report ID: [id number] Reading Location: [place] [address] Vita Sanches NP IMG US PROCEDURES Final Result * (ABNORMAL) Hemoglobin A1c (11/14/2024 10:14 AM CDT) Hgb A1C 7.0(H) <5.7 % of total Hgb [facility] Comment: For someone without known diabetes, a hemoglobin A1c value of 6.5% or greater indicates that they may have diabetes and this should be confirmed with a follow-up test. For someone with known diabetes, a value <7% indicates that their diabetes is well controlled and a value greater than or equal to 7% indicates suboptimal control. A1c targets should be individualized based on duration of diabetes, age, comorbid conditions, and other considerations. Currently, no consensus exists regarding use of hemoglobin A1c for diagnosis of diabetes for children. Blood 11/14/2024 10:1 4 AM CDT 11/14/2024 10:16 AM CDT Narrative [facility] - 11/15/2024 6:37 AM CDT FASTING:YES FASTING: YES Vita Sanches NP LAB BLOOD ORDERABLES Fi nal Result [facility] [address] [place] [address] * (ABNORMAL) Lipid panel (11/14/2024 10:14 AM CDT) Pathologist [facility] Cholesterol 167 <200 mg/dL [employer] [facility] HDL 30(L) > OR = 50 mg/dL [facility] Triglycerides 545(H) <150 mg/dL [facility] Comment: If a non-fasting specimen was collected, consider repeat triglyceride testing on a fasting specimen if clinically indicated. Morales et al. J. of Clin. Lipidol. 2015;9:129-169. There is increased risk of pancreatitis when the triglyceride concentration is very high (> or = 500 mg/dL, especially if > or = 1000 mg/dL). Morales et al. J. of Clin. Lipidol. 2015;9:129-169. LDL mg/dL (calc) [facility] Comment: LDL cholesterol not calculated. Triglyceride levels greater than 400 mg/dL invalidate calculated LDL results. Reference range: <100 Desirable range <100 mg/dL for primary prevention; <70 mg/dL for patients with CHD or diabetic patients with > or = 2 CHD risk factors. LDL-C is now calculated using the Juventino calculation, which is a validated novel method providing better accuracy than the Friedewald equation in the estimation of LDL-C. Carlos ASENCIO et al. REG. 2013;310(19): 0806-3050 (http://education.[employer].BLAZER [employer] FLIP [employer]OPS/faq/WQF408) Chol/HDL ratio 5.6(H) <5.0 (calc) [facility]anda [facility] Non-HDL, (LDL+VLDL) 137(H) <130 mg/dL (calc) [facility] Comment: For patients with diabetes plus 1 major ASCVD risk factor, treating to a non-HDL-C goal of <100 mg/dL (LDL-C of <70 mg/dL) is considered a therapeutic option. Blood 11/14/2024 10:1 4 AM CDT 11/14/2024 10:16 AM CDT Narrative [facility] - 11/15/2024 6:37 AM CDT FASTING:YES FASTING: YES us Vita Sanches NP LAB BLOOD ORDERABLES nal Result [facility] [address] [place] [address] * (ABNORMAL) Comprehensive metabolic panel (11/14/2024 10:14 AM CDT) Glucose 248(H) 65 - 99 mg/dL [facility] Comment: Fasting reference interval For someone without known diabetes, a glucose value >125 mg/dL indicates that they may have diabetes and this should be confirmed with a follow-up test. BUN 9 7 - 25 mg/dL [facility] Creatinine 0.44(L) 0.50 - 0.99 mg/dL [facility] Sin eGFR 119 > OR = 60 mL/min/1.7 3m2 [facility] BUN/creat ratio 20 6 - 22 (calc) [facility] Sodium 132(L) 135 - 146 mmol/L [facility] Potassium, pl 4.5 3.5 - 5.3 mmol/L [facility] Chloride 97(L) 98 - 110 mmol/L [facility] CO2 27 20 - 32 mmol/L [facility] Calcium 8.7 8.6 - 10.2 mg/dL [facility] Protein, sr 6.5 6.1 - 8.1 g/dL [facility] Albumin 4.0 3.6 - 5.1 g/dL [facility] GLOBULIN 2.5 1.9 - 3.7 g/dL (calc) [facility] Alb/glob ratio 1.6 1.0 - 2.5 (calc) [facility] Bilirubin, total 0.7 0.2 - 1.2 mg/dL [facility] Alk phos 92 31 - 125 U/L [facility] AST 25 10 - 35 U/L [facility] ALT (SGPT) 33(H) 6 - 29 U/L [facility] Blood 11/14/2024 10:1 4 AM CDT 11/14/2024 10:16 AM CDT Narrative [facility] - 11/15/2024 6:37 AM CDT FASTING:YES FASTING: YES us Vita Sanches NP LAB BLOOD ORDERABLES Fi nal Result [facility] [address] [place] [address] * DIAGNOSTIC MAMMOGRAM BILATERAL W ADRI (03/13/2024 10:15 AM CDT) Anatomical Region Laterality Modality Breast Bilateral Mammography 03/13/2024 11:0 9 AM CDT Impressions 03/13/2024 11:09 AM CDT No evidence of malignancy. This is correspond to the palpable area of concern in the right breast. Follow-up in 1 year with screening mammography is recommended. BI-RADS: 2 - Benign. The patient has been or will be contacted. The patient will be entered into a reminder system with a target due date of 1 year for her next mammogram. Electronically signed by: Atiya Carrington M.D. Narrative 03/13/2024 11:09 AM CDT EXAMINATION: DIAGNOSTIC MAMMOGRAM BILATERAL W ADRI, US BREAST RIGHT LIMITED ORDERING HEALTHCARE PROVIDER: KRISTINE THRASHER HISTORY: Patient palpates a mass in the right breast. COMPARISON: 10/10/2019, 01/05/2018, 12/29/2017 TECHNIQUE: CC and MLO routine views of the Bilateral breasts were obtained with digital technique using breast tomosynthesis with C view. Computer aided detection was utilized. This was followed by targeted right breast sonography. FINDINGS: The breast tissue is heterogeneously dense, which may obscure small masses. There are benign-appearing calcifications bilaterally. There are no suspicious masses, calcifications, or architectural distortion. No lesions are seen underlying the palpable area of concern in the upper inner right breast. Further evaluation was obtained with sonography. Targeted right breast ultrasound: At the palpable area of concern at the 1 o'clock position of the right breast, 7 cm from the nipple, there is a 6 mm cyst. This appears to correspond to the palpable area of concern. No suspicious lesions are seen. Kristine Thrasher MD IMG MAMMO PROCEDURES F inal Result * (ABNORMAL) Albumin Creatinine Ratio, Urine (01/23/2024 10:29 AM CDT) Pathologist [facility] Albumin Ur 71.6 mg/L Comment: Interpretive Data No reference range established. Current interpretive data was last revised 2018. Creatinine Ur 33.5 mg/dL [facility] Comment: Interpretive Data No reference range established. Current interpretive data was last revised 2018. Albumin Creatinine Ratio, Ur 214(H) 1 - 29 mg/g [facility] Urine 01/23/2024 10:2 9 AM CDT 01/23/2024 2:17 PM CDT Kristine Thrasher MD LAB URINE ORDERABLES F inal Result [facility] [address] Department [place] [address] * DIABETES EYE EXAM (04/08/2023) Pathologist [facility] SCRIBED DIABETIC DILATED EYE EXAM Normal Hakeem Rodriguez MD HEALTH MAINTENANCE Final Result * Hepatitis C antibody (12/08/2022 8:52 AM CDT) Pathologist [facility] Hep C Ab Nonreactive Nonreactive [facility] Comment: Interpretive Data Nonreactive: Antibodies to HCV not detected. Does NOT exclude the possibility of recent exposure to HCV. Equivocal: Equivocal for HCV antibodies. Supplemental molecular testing will be automatically performed to determine infection status in accordance with current CDC screening recommendations. Reactive: Positive for HCV antibodies. This may represent current or past HCV infection. Supplemental molecular testing will be automatically performed to determine current infection status in accordance with current CDC screening recommendations. Interpretive data was last revised on 2019. Blood 12/08/2022 8:52 AM CDT 12/08/2022 2:13 PM CDT Latricia Kirk MD LAB MICROBIOLOGY - GENERAL ORDERABLES Final Result [facility] [address] Department [place] [address] * COLONOSCOPY (11/17/2020) Scribed Colonoscopy Normal Comment:at [facility] Historical Provider HEALTH MAINTENANCE Final Result from Last 3 Months or Most Recently Relevant to Health Maintenance Insurance [facility] MEDICARE ADVANTAGE IDPA [facility] MEDICARE ADVANTAGE IDPA Care Teams Awning Maker Relationship Specialty Start Date End Date Vita Sanches NP [address] [place] [address] PCP - General Family Medicine 06/19/24 Brendan Metz MD [address] [place] [address] [place] [id number] Consulting Physician Pulmonary Disease 01/30/25
--- OUTSIDE RECORDS SUMMARY | 2025-03-16 23:13 | XMS_ITS | Encounter Summary ---
Author Organization [facility] Healthcare Address [address] [place] [address] Care Team Providers Care Center Lead Consultant Name Role Phone Vita Sanches NP Primary Care Provider Brendan Metz MD Unavailable [phone] Reason for Visit * Reason Onset Date Comments Test Results 03/01/2025 Encounter Details Date Type Department Care Team ([facility] st Contact Info) Description 03/01/2025 Results Follow-Up [facility] Medical Group Primary Care at [address] [place] [address] Radha Sanchez NP [address] [place] [address] [address] [place] [address] [place] Upper Extremity Right Limited Social History Tobacco Use Types Packs/Day Years Used Date Smoking Tobacco: Never Smokeless Tobacco: Never AUDIT-C Answer Date Recorded Q1: How often do you have a drink containing alcohol? Never 01/30/2025 Q2: How many drinks containi ng alcohol do you have on a typical day when you are drinking? Patient does not drink Q3: How often do you have si x or more drinks on one occasion? Never 01/30/2025 PHQ-2 Answer Date Recorded PHQ-2 Total Score (If total score is 3 or more points, staff should administer the PHQ-9) 0 01/30/2025 PHQ-9 Answer Date Recorded PHQ-9 Total Score 2 10/24/2023 Comments No Sex and Gender Information Value Date Recorded Sex Assigned at Not on file Legal Sex Female 2:07 PM CDT Gender Identity Not on file Sexual Orientation Not on file documented as of this encounter Miscellaneous Notes * Telephone Encounter - Consuelo Peacock MA - 03/01/2025 10:10 AM CDT Patient stated that she was already referred to a surgeon and she is getting the lipoma removed on 03/15/2025. Just for your information documented in this encounter Plan of Treatment Not on file documented as of this encounter Visit Diagnoses Not on filedocumented in this encounter Care Teams Center Lead Consultant Relationship Specialty Start Date End Date Vita Sanches NP [address] [place] [address] PCP - General Family Medicine 06/19/24 Brendan Metz MD [address] [place] [address] Consulting Physician Pulmonary Disease 01/30/25 documented as of this encounter
--- OUTSIDE RECORDS SUMMARY | 2025-03-16 23:13 | XMS_ITS ---
Author Organization [facility] [employer] [facility] Address [facility] [address] [address] Care Team Providers Care Business Services Clerk Name Role Phone Vita Anand Primary Care Provider Un available Sophia Smith Unavailable [phone] Toya Ricci Unavailable [phone] REASON FOR VISIT 2 week f/u Therapy Social History Sex Assigned At : Social History Observation Description Sex Assigned At Female Encounters Encounter Location Date Provider Diagnosis [facility] [place] [id number] [facility] [address] [facility] [address] [place] [address] 02/22/2025 Toya Ricci Plan Of Treatment Next Appt Details Provider Name:Toya Ricci , 03/22/2025 09:00:00 AM, [address] [place] [address], [address], [address], Provider Name:Sophia mae, 05/15/2025 02:00:00 PM, [address] [place] [address], [address], [address], Progress Notes * MISAEL RICHARDSON LDOB:1974 (49 yo F)Acc No.[id number]:02/22/2025 Patient: Juan A MISAEL COBOS Provider: Stephon RICCI LCSW :1975 A ge:49 Y S ex:Female Date:02/22/2025 Address:[address] [place], [place] [id number] Pcp:Vita OZUNAP Data: * Chief Complaints: * 1 . 2 week f/u Therapy. Assessment: Plan: * Treatment: * Billing Information: * Visit Code: * Procedure Codes: * Electronic signature of Amanda Ricci LCSW on 03/16/2025 at 11:13 PM CDT Sign off status: Pending Signatures: No Ad Hoc Signature Added * Provider: Stephon RICCI LCSW Date: 0 02/22/2025 Generated for Jossue vogt/Griselda/Walker on: 0 03/16/2025 11:13 PM CDT
--- OUTSIDE RECORDS SUMMARY | 2025-03-16 23:13 | XMS_ITS | Clinical Summary ---
Author Organization [facility] Address [address] [address] Phone Care Team Providers Care Master Control Technician Name Role Phone Unavailable Primary Care Provider Unavailabl e Allergies Active Allergy Reactions Criticality Noted Date Comments Haloperidol Lactate Other (See Comments) 2017 Unable to walk and drools Ziprasidone Hcl Other (See Comments) 04/11/2018 Unable to walk and drools Medications metFORMIN (GLUCOPHAGE) 1,000 mg tablet Take 1,000 mg by mouth 2 times daily with meals. Active glipiZIDE (GLUCOTROL) 5 mg tablet Take 5 mg by mouth 2 times daily with meals. Active albuterol HFA 90 mcg inhaler Take 2 Puffs by inhalation every 6 hours as needed for Wheezing or Shortness of Breath. 8.5 Gram 9 Active lamoTRIgine (LaMICtal) 25 mg tablet Take 200 mg by mouth daily. Active liraglutide (VICTOZA 2-DOMONIQUE SUBCUT) Inject by subcutaneous injection late in the day. Active insulin detemir U-100 (Levemir U-100 Insulin) 100 unit/mL vial Inject 18 Units by subcutaneous injection daily at bedtime. Active pregabalin (LYRICA) 75 mg Capsule TAKE 1 CAPSULE BY MOUTH THREE TIMES A DAY 90 Capsule 5 0 Active ARIPiprazole (ABILIFY) 1 mg/mL solution Take by mouth every 30 days. Active famotidine (PEPCID) 20 mg tablet Take 20 mg by mouth 2 times daily. Active lisinopriL (PRINIVIL) 2.5 mg tablet Take 2.5 mg by mouth daily. Active levothyroxine 88 mcg tablet Take 88 mcg by mouth daily in the morning. Active predniSONE (DELTASONE) 10 mg tablet Take orally: 4 tabs daily for 2 days then 3 tabs daily for 3 days then 2 tabs daily for 3 days then 1 tab daily for 3 days then stop. 26 Tablet Active Active Problems Problem Noted Date Diagnosed Date Multifocal pneumonia 06/12/2021 Benign hypertension 06/12/2021 Hypothyroidism 06/12/2021 Hepatic steatosis 04/10/2021 H. pylori infection 04/10/2021 Family history of colonic po lyps--due next colonoscopy October 2025 11/17/2020 Sensorineural hearing loss (SNHL) of both ears 0 01/17/2020 Bipolar 1 disorder 06/14/2018 Urinary incontinence 06/14/2018 Uncontrolled type 2 diabetes mellitus with hyper glycemia 06/14/2018 Mental developmental delay 06/14/2018 Acquired intellectual disability 06/14/2018 S/P complete hysterectomy 09/2017 [place] 2017 Resolved Problems Problem Noted Date Diagnosed Date Resolved Date Acute respiratory failure with hypoxia 06/12/2021 06/17/2021 Asthma exacerbation 06/12/2021 06/17/20 21 Immunizations Immunization Administration Dates Next Due (PNEUMOVAX 23)(50 YRS UP) PN EUMOCOCCAL POLYSACCHARIDE (PPV23) 0.5 ML, IM 06/17/2021 Family History Medical History Relation Name Comments Depression Brother Dionicio Dougherty Depression Daughter Kay Lowry Thyroid Disease Daughter Kay Lowry Diabetes Father Terrell Dougherty Hypertension Father Terrell Dougherty Cancer Maternal Grandfather Heart Disease Maternal Grandfather Hypertension Maternal Grandfather Lung Cancer Maternal Grandmother Hypertension Mother Erika Dougherty Respiratory Disease Mother Erika Dougherty Other Paternal Grandfather Diabetes Paternal Grandmother Heart Disease Paternal Grandmother Colon Cancer Neg Hx Relation Name Status Comments Brother Dionicio Dougherty Alive Daughter Kay Lowry Alive Father Terrell Dougherty Alive Maternal Grandfather Alive Maternal Grandmother Mother Erika Dougherty Alive Paternal Grandfather murdere d Paternal Grandmother Social History Tobacco Use Types Packs/Day Years Used Date Smoking Tobacco: Never Smokeless Tobacco: Never Alcohol Use Standard Drinks/Week Comments Yes 0 (1 standard drink = 0.6 oz pur e alcohol) rare Comments No Sex and Gender Information Value Date Recorded Sex Assigned at Not on file Legal Sex Female 4:10 AM EMT B Gender Identity Not on file Sexual Orientation Not on file Last Filed Vital Signs Vital Sign Reading Time Taken Comments Blood Pressure 106/67 06/17/2021 11:08 AM EMT B Pulse 83 06/17/2021 11:08 AM EMT B Temperature 36.6 C (97.9 F) 06/17/2021 11:08 AM EMT B Respiratory Rate 20 06/17/2021 11:0 8 AM EMT B Oxygen Saturation 92% 06/17/2021 11: 08 AM EMT B Inhaled Oxygen Concentration - - Weight 102.9 kg (226 lb 12.8 oz) 06/17/2021 3:37 AM EMT B Height 175.3 cm (5' 9) 06/16/2021 9:48 AM EMT B Body Mass Index 33.49 06/16/2021 9:48 AM EMT B Plan of Treatment Health Maintenance Due Date Last Done Comments DIABETES ANNUAL FOOT EXAM 1994 DIABETES ANNUAL RETINAL EXAM 1994 DIABETES MICROALBUMIN ANNUAL SCREEN 1994 LDL CHOLESTEROL ANNUAL 1994 DTAP/TDAP/TD VACCINES (1 - Tdap) 1995 HEPATITIS B VACCINES (1 of 3 - 19+ 3-dose series) 1995 BREAST CANCER SCREENING 10/09/2020 10/10/2019 FIT-DNA Q 3 years 2021 FIT/FOBT Q 1 year 2021 Flex Sig/CT Colonography Q 5 years 2021 DIABETES HBA1C Q 6 MONTHS 12/10/2021 06/12/2021 COVID-19 Vaccine ( season) 2024, 09/19/2020 INFLUENZA VACCINE (#1) 2025 COLORECTAL SCREENING 11/17/2025 11/17/2020, 11/18/19 Colorectal Cancer Screening 11/17/2025 Procedures Procedure Name Priority Date/Time Associated Diagnosis Comments HEMOGLOBIN A1C Routine 06/12/2021 3:21 PM EMT B COLONOSCOPY REPORT 11/17/2020 9: 46 AM CDT MAMMO SCREEN BILAT W OR WO CAD Routine 10/10/2019 11:13 AM CDT Screening for breast cancer from Last 3 Months or Most Recently Relevant to Health Maintenance Results * (ABNORMAL) HEMOGLOBIN A1C (06/12/2021 3:21 PM EMT B) HEMOGLOBIN A1C 5.9(H) <=5.6 % 06/12/2021 9:51 PM EMT B [facility] [employer] [facility] EST. AVG GLUCOSE, A1C 123 mg/dL 06/12/2021 9:51 PM EMT B [facility] Blood Venipuncture / Unknown 06/12/2021 3:21 PM EMT B 06/12/2021 3:40 PM EMT B Narrative [facility] - 06/12/2021 9:51 PM EMT B HGB A1C INTERPRETATION NORMAL: <5.7% PRE-DIABETES: 5.7 - 6.4% DIABETES: 6.5% OR GREATER us Lena Issa MD CHEMISTRY ORDERABLES F inal Result [facility] CLIA# [id number] [address] [place] [address] * COLONOSCOPY REPORT (11/17/2020 9:46 AM CDT) Narrative Procedure Note Ruiz Torres MD - 11/17/2020 9:45 AM CDT [facility] Endoscopy Patient Name: Jovita Dougherty Procedure Date: 11/17/2020 Date of : 1975 Admit Type: Outpatient Attending MD: Ruiz Torres MD Procedure: Colonoscopy Indications: Screening for colorectal malignant neoplasm--Father with dyspastic polyps Providers: Ruiz Torres MD Referring MD: Yesika Louise Medicines: TIVA Complications: No immediate complications. Procedure: Informed consent was obtained for the procedure, including moderate sedation after risks were discussed. Based on the pre-procedure assessment, including review of the patient's medical history, medications, allergies, and review of systems, the patient was deemed to be an appropriate candidate for sedation. A timeout was performed. Continuous ECG monitoring, pulse oximetry, blood pressure monitoring, and direct observation were performed. The was introduced through the anus and advanced to the terminal ileum. The colonoscopy was performed without difficulty. The patient tolerated the procedure well. The quality of the bowel preparation was good. Estimated Blood Loss: Estimated blood loss: none. Findings: There was a medium-sized lipoma, in the cecum. Non-bleeding internal hemorrhoids were found during perianal exam. The hemorrhoids were medium-sized. Retroflexion not easily achieved so careful forward diet. The exam was otherwise without abnormality. Impression: - Medium-sized lipoma in the cecum. - Non-bleeding internal hemorrhoids. - The examination was otherwise normal. - No specimens collected. Recommendation: - Repeat colonoscopy in 5 years for surveillance. Ruiz Torres MD 11/17/2020 9:45:33 AM This report has been signed electronically. Number of Addenda: [address]; [place] [address] Ruiz Torres MD GI PROCEDURE ORDERABLES Rosalba l Result * MAMMO SCREEN BILAT W OR WO CAD (10/10/2019 11:13 AM CDT) Anatomical Region Laterality Modality Breast Bilateral Mammography 10/10/2019 11:1 4 AM CDT Addenda Addendum by Veronica Abdalla MD on 11/07/2019 4:42 PM CDT ADDENDUM: The patient's prior mammograms from [facility] dated 01/05/2018 and 12/29/2017 are now available for comparison. FINDINGS: There is no concerning mass, suspicious calcifications or architectural distortion identified in either breast. Since the prior mammograms, there has been no significant interval change. IMPRESSION: No suspicious findings to suggest malignancy in either breast. Annual mammography is recommended. OVERALL FINAL ASSESSMENT: BI-RADS CATEGORY 1: Negative Impressions 10/10/2019 2:06 PM CDT IMPRESSION: No prior mammograms are currently available for comparison. The prior mammograms have been requested and once received, an addendum will be made. CAD was utilized. RECOMMENDATIONS: Obtain prior mammograms for comparison. OVERALL FINAL ASSESSMENT: BI-RADS CATEGORY 0: Incomplete, needs comparison to prior mammograms DICTATION LOCATION: [facility] 10/10/2019 2:06 PM CDT EXAM: BILATERAL SCREENING DIGITAL MAMMOGRAM WITH CAD DATE: 10/10/2019 11:13 AM HISTORY: Screening mammogram. TECHNIQUE: Full-field digital craniocaudal and mediolateral oblique views of both breasts were obtained. CAD was used to evaluate the current study. BREAST COMPOSITION: Scattered fibroglandular densities FINDINGS: Comparison mammograms are not available. Procedure Note Dillon Miller MD / Veronica Abdalla MD - 10/10/2019 EXAM: BILATERAL SCREENING DIGITAL MAMMOGRAM WITH CAD DATE: 10/10/2019 11:13 AM HISTORY: Screening mammogram. TECHNIQUE: Full-field digital craniocaudal and mediolateral oblique views of both breasts were obtained. CAD was used to evaluate the current study. BREAST COMPOSITION: Scattered fibroglandular densities FINDINGS: Comparison mammograms are not available. IMPRESSION: No prior mammograms are currently available for comparison. The prior mammograms have been requested and once received, an addendum will be made. CAD was utilized. RECOMMENDATIONS: Obtain prior mammograms for comparison. 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
--- OUTSIDE RECORDS SUMMARY | 2025-03-16 23:13 | XMS_ITS | Encounter Summary ---
Author Organization [facility] Healthcare Address [address] [place] [address] Care Team Providers Care Tumbler Tender Name Role Phone Vita Sanches NP Primary Care Provider Brendan Metz MD Unavailable [phone] Reason for Visit * Auth/Cert (Routine) Specialty Diagnoses / Procedures Referred By Janna whitmore Referred To Contact Diagnoses Lipoma of right upper extremity Lipoma of right upper extremity [D17.21] Procedures MO EXC TUMOR SOFT TISSUE UPPER ARM/ELBOW SUBQ 3CM/> EXCISION OF LIPOMA OF RIGHT ARM Referral ID Status Reason Start Date Expiration Date Visits Re quested Visits Authorized [id number] 1 1 Encounter Details Date Type Department Care Team ([facility] st Contact Info) Description 03/15/2025 10:55 AM CDT Anesthesia Event [facility] Operating Room [address] [place] [address] [place] [address] [facility] [address] [place] [address] Tan Tabares, DO [address] [facility] [address] [place] [address] Anesthesia Record Procedure Summary Procedure Name Responsible Anesthesiologist Anesthesia Start Time Anesthesia Stop Time EXCISION OF LIPOMA OF RIGHT ARM (Right) Adele Jackson MD 03/15/25 1055 03/15/25 1139 Events Date Time Event Comment 03/15/2025 0956 1055 In Room 1055 An Start 1055 An Start Data 1058 Start Supplemental O2 1103 An Induction The patient was reevaluated immediately before moderate or deep sedation use and before anesthesia induction. 1115 Anesthesia Ready 1126 Proc Start 1127 Incision Start 1134 Incision Close 1137 Proc Fin 1138 an stop data 1139 Handoff to RN I completed my handoff to the receiving nurse during which we: 1. Patient identified 2. Responsible provider identified 3. Pertinent medical history reviewed 4. Procedure type and surgical course discussed 5. Intraoperative anesthetic management and any significant issues discussed 6. Expectations and concerns for postop period discussed 7. Questions solicited from receiving nurse 8. Patient disposition at the time of handoff: No value filed. 1139 An Stop 1140 Release from care 1140 Out of Room Meds Name Total propofol 322.38 mg midazolam 2 mg fentaNYL 50 mcg lidocaine 2 % PF 100 mg sodium chloride 0.9% infusion 20.49 mL * Agents Name O2% N2O O2 N2O Air Sevoflurane Inspired Sevoflurane * Blood No blood administrations on file. Lines, Drains, and Airways Type Details Placement Removal Wound 03/15/25; 1133; Inci jonathan; Arm; Right, Posterior; surgical incision site 03/15/25 1133 by Viktoriya Valenzuela RN Peripheral IV Placement Date: 03/01 12/23; Placement Time: 0930; Catheter Size: 22 G; Orientation: Distal, Left, Posterior; Location: Forearm; Inserted by: LEMUEL Barragan; Insertion Attempts: 1; Patient Tolerance: Tolerated well; Removal Date: 03/15/25; Removal Time: 1256; Removal Reason: Discharge 03/15/25 0930 by Yolande Gutiérrez RN 03/15/25 1256 by Yolande Gutiérrez RN documented in this encounter Social History Tobacco Use Types Packs/Day Years Used Date Smoking Tobacco: Never Smokeless Tobacco: Never Alcohol Use Standard Drinks/Week Comments Never 0 [...] on file documented as of this encounter Functional Status * AUDIT-C Score Answer Date of Assessment Author 0 03/15/2025 9:14 AM CDT Yolande Tracy RN * Question Answer Date of Assessment Author Q1: How often do you have a drink containing alcohol? Never 03/15/2025 9:14 AM LARRYT Parth Gutiérrez RN Q2: How many drinks containing alcohol do you have on a typical day when you are drinking? Patient does not drink 03/15/2025 9:14 AM LARRYT Yolande Gutiérrez RN Q3: How often do you have six or more drinks on one occasion? Never 03/15/2025 9:14 AM LARRYT Parth Gutiérrez RN documented as of this encounter OR Notes * Anesthesia Postprocedure Evaluation - Barbara Oshea CRNA - 03/15/2025 11:40 AM CDT Patient: Jovita Dougherty Procedure Summary Date: 03/15/25 Room / Location: ON LICENSE OF [facility] OR [address] [place] [address] OPERATING ROOM Anesthesia Start: 1055 Anesthesia Stop: 1139 Procedure: EXCISION OF LIPOMA OF RIGHT ARM (Right) Diagnosis: Lipoma of right upper extremity (Lipoma of right upper extremity [D17.21]) Providers: Myron Espino MD Responsible Provider: Adele Jackson MD Anesthesia Type: MAC ASA Status: 3 Anesthesia Type: MAC Last vitals Anesthesia Post Evaluation Patient location during evaluation: PACU Patient participation: complete - patient participated Level of consciousness: fully awake Pain management: satisfactory to patient Airway patency: adequate and patent Cardiovascular status: acceptable Respiratory status: acceptable and nasal cannula Hydration status: acceptable Pt is: normothermic Nausea/Vomiting status: none No notable events documented. * Anesthesia Preprocedure Evaluation - Adele Jacksno MD - 03/15/2025 9:45 AM CDT Images from the original note were not included. Anesthesia Evaluation Jovita Dougherty is a 49 y.o. female EXCISION OF LIPOMA OF RIGHT ARM (Right) Pre-Op Diagnosis Codes: * Lipoma of right upper extremity [D17.21] HISTORY Past Medical History Information obtained from: patient and chart. Information obtained during: In Person Neurological + Psychiatric history - depression Dementia: developmental delay. Respiratory + Asthma Hepatic / Heme + Liver disease - CORMIER. Gastrointestinal + GERD - on daily therapy. Renal / Renal disease: angiomyoplipoma. Endocrine / Other + Diabetes mellitus - Diabetes type 2. Diabetic complications: neuropathy. Outpatient insulin use: current. + Thyroid disease - hypothyroidism + Obesity (BMI >30) Day of Surgery assessments + Possibility of assessed - ruled out by patient's provided history. Review of Systems + hard of hearing Patient Active Problem List Diagnosis Date Noted Lipoma of right upper extremity 01/30/2025 Preventative health care 10/24/2024 Left hand pain 10/24/2024 Class 1 obesity with body mass index (BMI) of 34.0 to 34.9 in adult 06/20/2024 Acanthosis nigricans, acquired 01/25/2024 Thoracic aortic aneurysm without rupture, unspecified part 10/24/2023 Multiple pulmonary nodules 03/15/2023 Renal angiomyolipoma 03/15/2023 Mixed dyslipidemia 09/16/2022 Asthma 06/01/2022 Vitamin D deficiency 06/01/2022 Low vitamin B12 level 06/01/2022 Type 2 diabetes mellitus with diabetic polyneuropathy, with long-term current use of insulin (HCC) 06/01/2022 Borderline personality disorder (HCC) 06/01/2022 Attention deficit hyperactivity disorder (ADHD) 06/01/2022 Positive CHRISSIE (antinuclear antibody) 06/01/2022 Generalized anxiety disorder 05/03/2022 Hypothyroidism 06/12/2021 Hepatic steatosis 04/10/2021 H. pylori infection 04/10/2021 Sensorineural hearing loss (SNHL) of both ears 01/17/2020 Bipolar 1 disorder (HCC) 06/14/2018 Mental developmental delay 06/14/2018 Urinary incontinence 06/14/2018 S/P complete hysterectomy 06/14/2018 Past Medical History: Diagnosis Date Arthritis Asthma 06/01/2022 Attention deficit hyperactivity disorder (ADHD) 06/01/2022 care per [facility] Bipolar 1 disorder (HCC) Borderline personality disorder (HCC) 06/01/2022 Bulimia nervosa Depression Developmental delay 06/01/2022 Diabetes (HCC) Diabetic neuropathy (HCC) Fatty liver Female bladder prolapse Generalized anxiety disorder 05/03/2022 GERD (gastroesophageal reflux disease) High cholesterol Hypothyroidism Low vitamin B12 level 06/01/2022 NAFLD (nonalcoholic fatty liver disease) 06/01/2022 Peripheral neuropathy 06/01/2022 PTSD (post-traumatic stress disorder) Sensorineural hearing loss (SNHL) of both ears 01/17/2020 uses aids Type 2 diabetes mellitus Vitamin D deficiency 06/01/2022 Past Surgical History: Procedure Laterality Date CARPAL TUNNEL RELEASE Left COSMETIC SURGERY 1990 GANGLION CYST EXCISION left hand HYSTERECTOMY HYSTERECTOMY W/ BILATERAL SALPINGOOPHORECTOMY for bleeding. had associated ovarian cyst PATELLA SURGERY Bilateral bilateral lateral release PLASTIC SURGERY nose job, deviated septum repair, chin implant TYMPANOSTOMY TUBE PLACEMENT ULNAR NERVE TRANSPOSITION Left ? release vs transposition OB History 1 Para 1 Term 1 AB Living SAB IAB Ectopic Multiple Live Births Allergies Allergen Reactions Haloperidol Agitation, Other (See comments) and Vision changes Drooling and walking funny Unable to walk and drools Ziprasidone Hcl Agitation, Other (See comments) and Vision changes Drooling and walking funny Unable to walk and drools Cloud Other (See comments) Med List Status: Nurse Complete Set By: Margy Larsen RN at 03/07/2025 3:53 PM Taking? Last Dose Start Date End Date Provider albuterol 2.5 mg /3 mL (0.083 %) nebulizer solution () More than a month 11/18/22 03/07/25 Kristine Garsia MD Take 3 mL (2.5 mg total) by nebulization 4 (four) times a day as needed for wheezing or shortness of breath albuterol HFA (PROVENTIL HFA,VENTOLIN HFA,PROAIR HFA) 90 mcg/actuation inhaler More than a month 10/15/24 -- Brendan Metz MD Inhale 2 puffs every 4 (four) hours as needed for wheezing or shortness of breath Alcohol Prep Pads pads, medicated -- 04/08/22 -- Hakeem Rodriguez MD ARIPiprazole (ABILIFY) 20 mg tablet 03/14/2025 10/12/23 -- Hakeem Rodriguez MD blood glucose diagnostic (glucose blood) strip () -- 06/01/22 02/14/25 Kristine Garsia MD To check blood sugar daily Notes: Please give compatible diabetic testing supplies covered by insurance blood-glucose sensor device -- 06/20/24 -- Vita Sanches, KI 1 each every 14 (fourteen) days Please provide whichever sensors for CGM that her insurance will cover cholecalciferol (VITAMIN D-3) 3,000 unit tablet 03/08/2025 01/30/25 -- Vita Sanches NP Take 1 tablet (3,000 Units total) by mouth daily fenofibrate nanocrystallized (TRICOR) 145 mg tablet 03/14/2025 01/25/24 -- Kristine Garsia MD Take 1 tablet (145 mg total) by mouth daily flash glucose scanning reader (FreeStyle Kalyn 2 [place]) misc () -- 06/20/24 02/14/25 Vita Sanches, AUTO JOB ESTIMATOR 1 each once for 1 dose Please provide whichever CGM reader insurance will cover. [id number] (Trelegy Ellipta) 100-62.5-25 mcg inhaler More than a month 10/15/24-- Brendan Metz MD Inhale 1 puff daily insulin glargine (LANTUS) 100 unit/mL (3 mL) pen for injection Past Week 10/24/24 03/15/25 Vita Sanches, AUTO JOB ESTIMATOR Inject 22 Units under the skin daily lamoTRIgine (LaMICtal) 100 mg tablet 03/14/2025 01/11/23 -- ProviderHakeem MD lancets (OneTouch Delica Plus Lancet) 30 gauge [facility] [place] -- 02/14/24 -- Kristine Garsia MD USE TO TEST ONCE DAILY levothyroxine (SYNTHROID) 25 mcg tablet 03/14/2025 12/17/23 -- Kristine Garsia MD TAKE 1 TABLET BY MOUTH DAILY lisinopriL (PRINIVIL,ZESTRIL) 2.5 mg tablet 03/14/2025 01/25/24 -- Kristine Garsia MD Take 1 tablet (2.5 mg total) by mouth daily metFORMIN (GLUCOPHAGE) 1,000 mg tablet 03/14/2025 07/26/24 -- Vita Sanches NP TAKE 1 TABLET(1000 MG) BY MOUTH TWICE DAILY WITH MEALS montelukast (SINGULAIR) 10 mg tablet More than a month 10/15/24 -- Brendan Metz MD Take 1 tablet (10 mg total) by mouth nightly OneTouch Verio Reflect Meter [facility] [place] -- 10/24/23 -- Kristine Garsia MD 1 each by other route daily Notes: Please dispense One touch ultra or other similar meter compatible with current supplies. If not compatible, then needs full meter and associated supplies pen needle, diabetic (BD Joi 2nd Gen Pen Needle) 32 gauge x 5/32 needle -- 03/14/24 -- Kristine Garsia MD INJECT 1 PEN NEEDLE UNDER THE SKIN DAILY rosuvastatin (CRESTOR) 10 mg tablet 03/14/2025 01/25/24 -- Kristine Garsia MD Take 1 tablet (10 mg total) by mouth daily semaglutide (OZEMPIC) 2 mg/dose (8 mg/3 mL) pen injector injection 03/04/2025 01/30/25 -- Vita Sanches NP Inject 2 mg under the skin every 7 days Current Facility-Administered Medications: Carrier Fluids for Secondary Infusion - 0.9% Sodium Chloride, 30 mL, intravenous, PRN sodium chloride 0.9% flush 0.5-20 mL, 0.5-20 mL, intra-catheter, PRN sodium chloride 0.9% infusion, 30 mL/hr, intravenous, Continuous, Last Rate: 30 mL/hr at 03/15/25 0931, 30 mL/hr at 03/15/25 0931 Social History Tobacco Use Smoking Status Never Smokeless Tobacco Never Alcohol Use: Not At Risk (03/15/2025) AUDIT-C Frequency of Alcohol Consumption: Never Average Number of Drinks: Patient does not drink Frequency of Binge Drinking: Never Substance and Sexual Activity Drug Use Yes Frequency: 4.0 times per week Types: Marijuana Family History Problem Relation Age of Onset Hypertension Mother Lung disease Mother unable to use lungs fully. on oxygen. ? weak diaphragm vs restrictive lung disease defects Mother Obesity Mother Allergy (severe) Mother Arthritis Mother Asthma Mother Hearing loss Mother Diabetes Father Neuropathy Father Hypertension Father Flagler syndrome Father Other (brain tumor) Father Depression Brother Mental illness Daughter Rashes / Skin problems Daughter Obesity Daughter Breast cancer Father's Sister Diabetes Father's Sister Diabetes Father's Sister Heart attack Father's Sister Cancer Father's Brother Diabetes Father's Brother Cancer Father's Brother Cancer Maternal Grandmother Heart disease Maternal Grandfather Cancer Maternal Grandfather Heart attack Maternal Grandfather Heart disease Paternal Grandmother No Known Problems Paternal Grandfather Vitals: 03/15/25 0900 BP: 136/81 Pulse: 65 Resp: 18 Temp: 36.5 ??C (97.7 ??F) SpO2: 99% PT: No results found for requested labs within last 30 days. INR: No results found for requested labs within last 30 days. APTT: No results found for requested labs within last 30 days. Hgb A1C: No results found for requested labs within last 30 days. CBC RBC: No results found for requested labs within last 30 days. RDW: No results found for requested labs within last 30 days. MCHC: No results found for requested labs within last 30 days. MCH: No results found for requested labs within last 30 days. MCV: No results found for requested labs within last 30 days. Hct: No results found for requested labs within last 30 days. Hgb: No results found for requested labs within last 30 days. WBC: No results found for requested labs within last 30 days. MPV: No results found for requested labs within last 30 days. Platelets: No results found for requested labs within last 30 days. RDW CV: No results found for requested labs within last 30 days. RDW Sd: No results found for requested labs within last 30 days. BMP Glucose: 03/15/2025: 178 mg/dL Calcium: No results found for requested labs within last 30 days. Sodium: No results found for requested labs within last 30 days. Potassium: No results found for requested labs within last 30 days. CO2: No results found for requested labs within last 30 days. Chloride: No results found for requested labs within last 30 days. BUN: No results found for requested labs within last 30 days. Creatinine: No results found for requested labs within last 30 days. STOP-Bang Total Score: 1 DOS Physical Exam Date of Last Liquid: 03/14/25, Time of Last Liquid: 2299 Date of Last Solid: 03/14/25, Time of Last Solid: 2299 Medical history, medications, and allergies reviewed. Attestation: I endorse the findings of the anesthesia pre-evaluation assessment dated: 03/15/2025. Airway Exam: Mallampati: II Cervical ROM: FROM TM distance: >4 Cardiovascular Exam: Rate: regular Pulmonary Exam: LCTA EENT Exam: trachea midline Dental Exam: Missing Current state: Patient's current state is cooperative. Anesthesia Plan ASA 3 My patient is approved for the Anesthesia Controlled Medication protocol when under care of a WARP YARN SORTER Planned anesthesia: MAC Induction: Induction: intravenous. Postoperative Plan: Postoperative administration opioids intended. No postoperative mechanical ventilation intended. Patient's planned disposition post procedure is Outpatient. Informed Consent: Discussed plan with attending and WARP YARN SORTER. Anesthesia plan and risks discussed with patient. Consent and Attending signature: I and/or my designee have discussed the anesthesia plan, benefits, possible alternatives, parental presence at time of induction (if indicated), and clinically relevant risks that may include dental injury, unintentional awareness, and/or other complications. The patient and/or parent/legal guardian understand, and agree to proceed. All questions answered. documented in this encounter Plan of Treatment Not on file documented as of this encounter Visit Diagnoses Not on filedocumented in this encounter Administered Medications Inactive Administered Medications - up to 3 most recent administrations Medication Order MAR Action Action Date Dose Rate Site fentaNYL (SUBLIMAZE) preservative free injection intravenous, As needed, Starting on Tue03/15/25 at 1128, Anesthesia Intra-op Given 03/15/2025 11:28 AM CDT 50 mcg lidocaine (PF) (XYLOCAINE) 20 mg/mL (2 %) preservative free injection epidural, As needed, Starting on Tue03/15/25 at 1109, Anesthesia Intra-op Given 03/15/2025 11:03 AM CDT 100 mg midazolam (VERSED) 1 mg/mL preservative free injection intravenous, Administer over 2 Minutes, As needed, Starting on Tue03/15/25 at 1055, Anesthesia Intra-op Given 03/15/2025 10:55 AM CDT 2 mg propofoL (DIPRIVAN) 10 mg/mL IV intravenous, Continuous PRN, Starting on Tue03/15/25 at 1103, Anesthesia Intra-op Rate/Dose Change 03/15/2025 11:17 AM CDT 100 mcg/kg/min 59.7 mL/hr Rate/Dose Change 03/15/2025 11:10 AM CDT 120 mcg/kg/min 71 .64 mL/hr New Bag 03/15/2025 11:03 AM CDT 100 mcg/kg/min 59.7 mL/ hr sodium chloride 0.9% infusion 30 mL/hr, intravenous, Continuous, Starting on Tue03/15/25 at 0945, Pre-Op Rate/Dose Verify 03/15/2025 12:15 PM CDT 30 mL/hr 30 mL/hr Restarted 03/15/2025 11:42 AM CDT 30 mL/hr 30 mL/hr Restarted 03/15/2025 11:34 AM CDT documented in this encounter Care Teams Tumbler Tender Relationship Specialty Start Date End Date Vita Sanches NP [address] [place] [address] PCP - General Family Medicine 06/19/24 Brendan Metz MD [address] [place] [address] Consulting Physician Pulmonary Disease 01/30/25 documented as of this encounter
--- OUTSIDE RECORDS SUMMARY | 2025-03-16 23:13 | XMS_ITS | Encounter Summary ---
Author Organization [facility] Healthcare Address [address] [place] [address] Care Team Providers Care Medical Interpreter Name Role Phone Vita Sanches NP Primary Care Provider Brendan Metz MD Unavailable [phone] Reason for Visit * Auth/Cert (Routine) Specialty Diagnoses / Procedures Referred By Janna whitmore Referred To Contact Diagnoses Lipoma of right upper extremity Lipoma of right upper extremity [D17.21] Procedures ND EXC TUMOR SOFT TISSUE UPPER ARM/ELBOW SUBQ 3CM/> EXCISION OF LIPOMA OF RIGHT ARM Referral ID Status Reason Start Date Expiration Date Visits Re quested Visits Authorized [id number] 1 1 Encounter Details Date Type Department Care Team ([facility] st Contact Info) Description 03/15/2025 10:40 AM CDT - 03/15/2025 11:40 AM CDT Surgery [facility] Operating Room [address] [place] [address] Myron Espino MD [address] [place] [address] [address] EXCISION OF LIPOMA OF RIGHT ARM Social History Tobacco Use Types Packs/Day Years [...] on file documented as of this encounter Last Filed Vital Signs Vital Sign Reading Time Taken Comments Blood Pressure 136/81 03/15/2025 9:00 AM CDT Pulse 65 03/15/2025 9:00 AM CDT Temperature 36.5 C (97.7 F) 03/15/2025 9:00 AM CDT Respiratory Rate 18 03/15/2025 9:00 AM CDT Oxygen Saturation 99% 03/15/2025 9:00 AM CDT Inhaled Oxygen Concentration - - Weight 99.5 kg (219 lb 5.7 oz) 03/15/2025 9:00 A M CDT Height 170.2 cm (5' 7) 03/15/2025 9:00 AM CDT Body Mass Index 34.36 03/15/2025 9:00 AM CDT documented in this encounter Functional Status * AUDIT-C Score Answer Date of Assessment Author 0 03/15/2025 9:14 AM CDT Yolande Tracy RN * Question Answer Date of Assessment Author Q1: How often do you have a drink containing alcohol? Never 03/15/2025 9:14 AM CDT Parth Gutiérrez RN Q2: How many drinks containing alcohol do you have on a typical day when you are drinking? Patient does not drink 03/15/2025 9:14 AM CDT Yolande Gutiérrez RN Q3: How often do you have six or more drinks on one occasion? Never 03/15/2025 9:14 AM CDT Parth Gutiérrez RN documented as of this encounter Discharge Instructions * Discharge Instructions* Yolande Gutiérrez RN - 03/15/2025 12:31 PM CDT Follow up in 2 weeks. Call office for appointment [phone] May remove dressings and shower next day If steri strips in place, leave alone. They will fall off in about a week Do not scrub incisions. Let soapy water run over them and pat dry * Attachments The following attachments cannot be sent through Care Everywhere. * Lipoma (Discharge Care) (Afghan) * General Anesthesia (Discharge Care) (Afghan) * [facility] PATHWAY TO EXCELLENT CARE AFTER SURGERY documented in this encounter Medications at Time of Discharge albuterol HFA (PROVENTIL HFA,VENTOLIN HFA,PROAIR HFA) 90 mcg/actuation inhalerIndications:Se mejía persistent asthma without complication (HCC) Inhale 2 puffs every 4 (four) hours as needed for wheezing or shortness of breath 90 each 1 10/15/2024 Alcohol Prep Pads pads, medicated 04/08/2022 ARIPiprazole (ABILIFY) 20 mg tablet Take 1 tablet (20 mg total) by mouth daily 10/12/2023 blood-glucose sensor deviceIndications:Typ e 2 diabetes mellitus with diabetic polyneuropathy, with long-term current use of insulin (HCC) 1 each every 14 (fourteen) days Please provide whichever sensors for CGM that her insurance will cover 2 each 06/20/2024 cholecalciferol (VITAMIN D-3) 3,000 unit tabletIndications:Vit whiteside D deficiency Take 1 tablet (3,000 Units total) by mouth daily 90 capsule 3 01/30/2025 fenofibrate nanocrystallized (TRICOR) 145 mg tabletIndications:Hyp ertriglyceridemia Take 1 tablet (145 mg total) by mouth daily 90 tablet 4 01/25/2024 fluticasone-umeclidin -vilanter (Trelegy Ellipta) 100-62.5-25 mcg inhalerIndications:Se mejía persistent asthma without complication ([facility]) Inhale 1 puff daily 90 each 1 10/15/2024 insulin glargine (LANTUS) 100 unit/mL (3 mL) pen for injectionIndications: Type 2 diabetes mellitus with diabetic polyneuropathy, with long-term current use of insulin ([facility]) Inject 22 Units under the skin daily 10/24/2024 lamoTRIgine (LaMICtal) 100 mg tablet 01/11/2023 lancets ([employer] SolutionTouch Delica Plus Lancet) [facility] USE TO TEST ONCE DAILY 100 each 1 02/14/2024 levothyroxine (SYNTHROID) 25 mcg tablet TAKE 1 TABLET BY MOUTH DAILY 100 tablet 1 12/17/2023 lisinopriL (PRINIVIL,ZESTRIL) 2.5 mg tabletIndications:Typ e 2 diabetes mellitus with diabetic polyneuropathy, with long-term current use of insulin ([facility]),Type 2 diabetes mellitus with microalbuminuria, with long-term current use of insulin ([facility]) Take 1 tablet (2.5 mg total) by mouth daily 90 tablet 1 01/25/2024 metFORMIN (GLUCOPHAGE) 1,000 mg tablet TAKE 1 TABLET(1000 MG) BY MOUTH TWICE DAILY WITH MEALS 180 tablet 1 07/26/2024 montelukast (SINGULAIR) 10 mg tabletIndications:Chr onic rhinitis Take 1 tablet (10 mg total) by mouth nightly 90 tablet 3 10/15/2024 OneTouch Verio Reflect Meter miscIndications:E11.9 , Z79.4. A1c 7.9 on 10/24/23 1 each by other route daily 1 each 10/24/2023 pen needle, diabetic (BD Joi 2nd Gen Pen Needle) 32 gauge x 5/32 needleIndications:Typ e 2 diabetes mellitus with diabetic polyneuropathy, with long-term current use of insulin ([facility]),Type 2 diabetes mellitus with microalbuminuria, with long-term current use of insulin ([facility]),Type 2 diabetes mellitus with hyperglycemia, with long-term current use of insulin ([facility]) INJECT 1 PEN NEEDLE UNDER THE SKIN DAILY 100 each 3 03/14/2024 rosuvastatin (CRESTOR) 10 mg tabletIndications:Hyp ertriglyceridemia Take 1 tablet (10 mg total) by mouth daily 90 tablet 4 01/25/2024 semaglutide (OZEMPIC) 2 mg/dose (8 mg/3 mL) pen injector injectionIndications: Type 2 diabetes mellitus with diabetic polyneuropathy, with long-term current use of insulin (HCC) Inject 2 mg under the skin every 7 days 3 mL 2 01/30/2025 documented as of this encounter Discharge Disposition Disposition Code Departure Means Destination Comment s Discharge to home or self care documented in this encounter H&P Notes * Myron Espino MD - 03/15/2025 9:22 AM CDT I have reviewed the H&P, examined the patient, and endorse the findings as written. Plan of Care : Based on the above findings, I consider Jovita Dougherty to be an acceptable risk for : Procedure(s): EXCISION OF LIPOMA OF RIGHT ARM Source Note - Myron Espino MD - 02/14/2025 9:30 AM CDT Images from the original note were not included. Subjective/Objective Patient ID: Jovita Dougherty is a 49 y.o. female. Chief Complaint lipoma of right upper arm History of Present Illness 49-year-old woman presents with a subcutaneous soft tissue mass of the right arm. It has been present for years. It is painful. It is aggravated by touching. No previous treatments. Review of Systems Review of Systems Constitutional: Negative for appetite change, chills, fatigue, fever and unexpected weight change. HENT: Negative for hearing loss, tinnitus, trouble swallowing and voice change. Eyes: Negative for visual disturbance. Respiratory: Positive for shortness of breath. Negative for cough, wheezing and stridor. Cardiovascular: Negative for chest pain, palpitations and leg swelling. Gastrointestinal: Negative for abdominal distention, abdominal pain, constipation, diarrhea, nauseaand vomiting. Endocrine: Negative for cold intolerance and heat intolerance. Genitourinary: Positive for frequency. Negative for difficulty urinating, hematuria and urgency. Musculoskeletal: Positive for back pain. Negative for arthralgias and myalgias. Skin: Negative for color change and rash. Allergic/Immunologic: Negative for environmental allergies and food allergies. Neurological: Negative for dizziness, seizures, syncope, numbness and headaches. Hematological: Negative for adenopathy. Does not bruise/bleed easily. Psychiatric/Behavioral: Positive for decreased concentration. Negative for agitation, behavioral problems and confusion. The patient is not nervous/anxious. Physical Exam Physical Exam Vitals reviewed. Constitutional: Appearance: She is well-developed. HENT: Head: Normocephalic and atraumatic. Eyes: General: No scleral icterus. Neck: Thyroid: No thyromegaly. Cardiovascular: Rate and Rhythm: Normal rate and regular rhythm. Heart sounds: Normal heart sounds. No murmur heard. No friction rub. No gallop. Pulmonary: Effort: Pulmonary effort is normal. No respiratory distress. Breath sounds: Normal breath sounds. No wheezing. Abdominal: General: Bowel sounds are normal. There is no distension. Palpations: Abdomen is soft. Musculoskeletal: General: Normal range of motion. Cervical back: Normal range of motion and neck supple. Lymphadenopathy: Cervical: No cervical adenopathy. Skin: General: Skin is warm and dry. Neurological: Mental Status: She is alert and oriented to person, place, and time. Psychiatric: Behavior: Behavior normal. Thought Content: Thought content normal. Judgment: Judgment normal. Assessment/Plan Diagnoses and all orders for this visit: Lipoma of right upper extremity (D17.21) - Ambulatory referral to General Surgery Risks benefits and alternatives were discussed. We will proceed with excision of right arm lipoma. documented in this encounter Miscellaneous Notes * Op Note - Myron Espino MD - 03/15/2025 11:27 AM CDT Operative Report SURGEON: Myron Espino MD SURGICAL TEAM: Surgeons and Role: * Myron Espino MD - Primary DATE OF SURGERY : 03/15/2025 PREOPERATIVE DIAGNOSIS: Pre-op Diagnosis * Lipoma of right upper extremity [D17.21] POSTOPERATIVE DIAGNOSIS: Post-op Diagnosis * Lipoma of right upper extremity [D17.21] PROCEDURE: EXCISION OF LIPOMA OF RIGHT ARM (R) INDICATION FOR PROCEDURE: Subcutaneous soft tissue mass of the right arm. Exam consistent with lipoma. ANESTHESIA: Choice IMPLANTS: Nothing was implanted during the procedure OPERATIVE DETAILS Incision type: Estimated Blood Loss: 0 mL Urine output : mls Intraoperative Fluids: mls Blood/Blood Products Transfused: mls Specimens: Order Name Source Comment Collection Info Order Time SURGICAL PATHOLOGY Lipoma Collected By: Myron Espino MD 03/15/2025 11:30 AM PROCEDURE: The patient was in the supine position. Her right arm was prepped and draped in a sterile fashion. We anesthetized the skin and soft tissue with lidocaine and Marcaine. A longitudinally oriented incision was made over the top of the mass. The mass was from the surrounding tissue with blunt and Bovie dissection. It was about 5 cm in length. Hemostasis was obtained with the Bovie. We closed the wound in 2 layers with 3-0 Vicryl and 4-0 Monocryl. Complications: None Condition on Discharge from the operating room was stable Myron Espino MD Date: 03/15/2025 Time: 11:53 AM TEACHING ATTESTATION : no resident * Perioperative Nursing Note - Margy Larsen RN - 03/07/2025 4:06 PM CDT Images from the original note were not included. Pre Anesthesia Testing Perioperative Nursing Note Telephone Preoperative Evaluation - TELEPHONE ONLY, NO PHYSICAL EXAM - [facility] Date: 03/07/25 PAT RN completed assessment with the patient. Jovita Dougherty is a 49 y.o. female EXCISION OF LIPOMA OF RIGHT ARM (Right) Pre-Op Diagnosis Codes: * Lipoma of right upper extremity [D17.21] There were no vitals filed for this visit. Social History Tobacco Use Smoking Status Never Smokeless Tobacco Never Substance and Sexual Activity Drug Use Yes Frequency: 4.0 times per week Types: Marijuana Alcohol Use Q1: How often do you have a drink containing alcohol?: Never Q2: How many drinks containing alcohol do you have on a typical day when you are drinking?: Patientdoes not drink Q3: How often do you have six or more drinks on one occasion?: Never Past Medical History: Diagnosis Date Arthritis Asthma 06/01/2022 Attention deficit hyperactivity disorder (ADHD) 06/01/2022 care per psychiatric Bipolar 1 disorder (HCC) Borderline personality disorder [...] walking funny Unable to walk and drools [place] Other (See comments) CURRENT MEDICATIONS Med List Status: Nurse Complete Set By: Margy Larsen RN at 03/07/2025 3:53 PM Taking? Last Dose Start Date End Date Provider albuterol 2.5 mg /3 mL (0.083 %) nebulizer solution -- 11/18/22 03/07/25 Kristine Garsia MD Take 3 mL (2.5 mg total) by nebulization 4 (four) times a day as needed for wheezing or shortness of breath albuterol HFA (PROVENTIL HFA,VENTOLIN HFA,PROAIR HFA) 90 mcg/actuation inhaler -- 10/15/24 -- Brendan Metz MD Inhale 2 puffs every 4 (four) hours as needed for wheezing or shortness of breath Alcohol Prep Pads pads, medicated -- 04/08/22 -- Hakeem Rodriguez MD ARIPiprazole (ABILIFY) 20 mg tablet -- 10/12/23 -- Hakeem Rodriguez MD blood glucose diagnostic (glucose blood) strip () -- 06/01/22 02/14/25 Kristine Garsia MD To check blood sugar daily Notes: Please give compatible diabetic testing supplies covered by insurance blood-glucose sensor device -- 06/20/24 -- Vita Sanches, WELL SERVICES OPERATOR 1 each every 14 (fourteen) days Please provide whichever sensors for CGM that her insurance will cover cholecalciferol (VITAMIN D-3) 3,000 unit tablet -- 01/30/25 -- Vita Sanches NP Take 1 tablet (3,000 Units total) by mouth daily fenofibrate nanocrystallized (TRICOR) 145 mg tablet -- 01/25/24 -- Kristine Garsia MD Take 1 tablet (145 mg total) by mouth daily flash glucose scanning reader (FreeStyle Kalyn 2 Edison) misc () -- 06/20/24 02/14/25 Vita Sanches, KI 1 each once for 1 dose Please provide whichever CGM reader insurance will cover. vmnbxqqjsci-egwouvbtq-cnsjaaow (Trelegy Ellipta) 100-62.5-25 mcg inhaler -- 10/15/24 -- Brendan Metz MD Inhale 1 puff daily insulin glargine (LANTUS) 100 unit/mL (3 mL) pen for injection -- 10/24/24 03/07/25 Vita Sanches, WELL SERVICES OPERATOR Inject 22 Units under the skin daily lamoTRIgine (LaMICtal) 100 mg tablet -- 01/11/23 -- Hakeem Rodriguez MD lancets (OneTouch Delica Plus Lancet) 30 gauge misc -- 02/14/24 -- Kristine Garsia MD USE TO TEST ONCE DAILY levothyroxine (SYNTHROID) 25 mcg tablet -- 12/17/23 -- Kristine Garsia MD TAKE 1 TABLET BY MOUTH DAILY lisinopriL (PRINIVIL,ZESTRIL) 2.5 mg tablet -- 01/25/24 -- Kristine Garsia MD Take 1 tablet (2.5 mg total) by mouth daily meloxicam (MOBIC) 15 mg tablet -- 08/20/22 -- Kristine Garsia MD TAKE 1 TABLET(15 MG) BY MOUTH DAILY WITH BREAKFAST Notes: Patient requests 90 days supply metFORMIN (GLUCOPHAGE) 1,000 mg tablet -- 07/26/24 -- Vita Sanches NP TAKE 1 TABLET(1000 MG) BY MOUTH TWICE DAILY WITH MEALS montelukast (SINGULAIR) 10 mg tablet -- 10/15/24 -- Brendan Metz MD Take 1 tablet (10 mg total) by mouth nightly OneTouch Verio Reflect Meter misc -- 10/24/23 -- Kristine Garsia MD 1 [...] SKIN DAILY rosuvastatin (CRESTOR) 10 mg tablet -- 01/25/24 -- Kristine Garsia MD Take 1 tablet (10 mg total) by mouth daily semaglutide (OZEMPIC) 2 mg/dose (8 mg/3 mL) pen injector injection 02/27/2025 01/30/25 -- Vita Sanches NP Inject 2 mg under the skin every 7 days Implants No active implants to display in this view. TRAVEL/EXPOSURE Travel Screening Have you traveled outside the [place] in the last 6 months?: No SCREENINGS STOP-Bang Total Score: 1 NUTRITION PATIENT CARE PLANNING ADDITIONAL COMMENTS/ FOLLOW UP Pre operative instructions reviewed with patient, she verbalized understanding of instructions * Pre-Procedure Instructions - Margy Larsen RN - 03/07/2025 3:55 PM CDT [phone] We are pleased that you and your doctor have chosen [facility] for your surgery. We hope that the following information will help make your visit a pleasant one. Surgery Date: 03/15/2025 You will receive a call on 03/14/25 after 3 pm with your arrival time Before your surgery: Notify your doctor of ANY change in your health such as a cold, sore throat, fever, any infection or a change in the problem for which you are having your surgery. Follow any instructions given to you by your doctor or surgeon. One week before surgery STOP taking: All herbal supplements and vitamins Aspirin (not ordered by your doctor) Aleve, Advil, Motrin, Ibuprofen, or other similar medications (Tylenol is okay). 24 hours before your surgery: No smoking or alcoholic drinks. Night before your surgery: Do not eat or drink anything after midnight. Follow surgeon's instructions for anti-bacterial shower night before and morning of surgery. Pleaseuse the soap given to you by the surgeons office. Day of surgery: Do not swallow any water when you brush your teeth. Do not take your AM insulin dose or any diabetic medicines TAKE MEDICATIONS INSTRUCTED WITH A SIP OF WATER Pre-Surgery Instructions Medication Instructions albuterol 2.5 mg /3 mL (0.083 %) nebulizer solution Take morning of surgery albuterol HFA (PROVENTIL HFA,VENTOLIN HFA,PROAIR HFA) 90 mcg/actuation inhaler Take morning of surgery ARIPiprazole (ABILIFY) 20 mg tablet Take morning of surgery cholecalciferol (VITAMIN D-3) 3,000 unit tablet Hold the morning of surgery fenofibrate nanocrystallized (TRICOR) 145 mg tablet Take morning of surgery tarhbzwsodr-ykuvlcvqv-jwxkewgx (Trelegy Ellipta) 100-62.5-25 mcg inhaler Take morning of surgery insulin glargine (LANTUS) 100 unit/mL (3 mL) pen for injection Take 18 units on the evening prior to surgery lamoTRIgine (LaMICtal) 100 mg tablet Take morning of surgery levothyroxine (SYNTHROID) 25 mcg tablet Take morning of surgery lisinopriL (PRINIVIL,ZESTRIL) 2.5 mg tablet Take morning of surgery meloxicam (MOBIC) 15 mg tablet Stop taking 7 days prior to surgery metFORMIN (GLUCOPHAGE) 1,000 mg tablet Hold the morning of surgery montelukast (SINGULAIR) 10 mg tablet Take as prescribed rosuvastatin (CRESTOR) 10 mg tablet Take morning of surgery semaglutide (OZEMPIC) 2 mg/dose (8 mg/3 mL) pen injector injection Stop taking 10 days prior to surgery Use no make-up, nail icelandic, lotions, oils or powders on your skin. Wear comfortable clothes that will not be tight in the area of your surgery. Leave all valuables and jewelry (including all body piercing jewelry) at home. If you use a CPAP machine, please bring it with you to wear after your surgery. Please bring your a photo ID and insurance cards with you. Check in at the Registration Desk.downstairs in the Ambulatory Surgery Department. You will come inthe main entrance and go down the bahena until you see the [employer]/coffee shop, there will be elevators to the right, take those down to LL1. You will exist the elevators to the right and go down thehall and you will pass Medical Imaging on the left and we will be the next department on the right,you will see the sign above that says Ambulatory Surgery Department check-in. If you are 17 years old or younger, a parent or guardian must come with you. After your Outpatient Surgery: You must have a responsible adult to drive you home, you will not be allowed to drive or take a cabhome. We recommend you have someone stay with you for 24 hours after your surgery. Questions or concerns: If you have any questions or concerns regarding your procedure, contact your surgeon as soon as possible. If you have questions regarding your Pre-Admission Testing, please call us. We can be reached at the number posted at the top of the page. documented in this encounter Plan of Treatment Pending Results Name Type Priority Associated Diagnoses Date /Time Surgical pathology Pathology and Cytology Routine Lipoma of right upper extremity 03/15/2025 12:17 PM CDT Scheduled Orders Name Type Priority Associated Diagnoses Order Schedule Surgical pathology Pathology and Cytology Timed Lipoma of right upper extremity Release Upon Ordering for 1 Occurrences starting 03/15/2025 documented as of this encounter Procedures Procedure Name Priority Date/Time Associated Diagnosis Comments POCT GLUCOSE DEVICE Routine 03/15/2025 1 1:54 AM CDT POCT GLUCOSE DEVICE Routine 03/15/2025 9 :28 AM CDT documented in this encounter Results * POCT glucose (03/15/2025 11:54 AM CDT) Glucose, POC 144 70 - 199 mg/dL Blood 03/15/2025 11:5 4 AM CDT 03/15/2025 11:54 AM CDT Myron Espino MD LAB POCT ORDERABLES - DEVICE Final Result Performing Organization Address [facility]/ZIP Co de Phone Number [facility] ([facility]) [address] [facility] [place] [address] * POCT glucose (03/15/2025 9:28 AM CDT) Glucose, POC 178 70 - 199 mg/dL Blood 03/15/2025 9:28 AM CDT 03/15/2025 9:28 AM CDT Myron Espino MD LAB POCT ORDERABLES - DEVICE Final Result Performing Organization Address [facility] Co de Phone Number [facility]) [address] [facility] [place] [address] documented in this encounter Visit Diagnoses Diagnosis Lipoma of right upper extremity- Primary Lipoma of right upper extremity documented in this encounter Admitting Diagnoses Diagnosis Lipoma of right upper extremity documented in this encounter Administered Medications Inactive Administered Medications - up to 3 most recent administrations Medication Order MAR Action Action Date Dose Rate Site acetaminophen (TYLENOL) tablet 1,000 mg 1,000 mg, oral, Once, On Tue03/15/25 at 0945, For 1 dose, Pre-Op, Indications: Pre-Emptive AnalgesiaIndications:Pr e-Emptive Analgesia Given 03/15/2025 9:31 AM CDT 1,000 mg BUPivacaine-EPINEPHrine (MARCAINE with EPI) 0.5 %-1:200,000 preservative free injection As needed, Starting on Tue03/15/25 at 1127, Intra-Op Given 03/15/2025 11:27 AM CDT 3 mL Surgical Site lidocaine-EPINEPHrine (XYLOCAINE with EPI) 1 %-1:200,000 preservative free injection As needed, Starting on Tue03/15/25 at 1127, Intra-Op, Indications: Administration of Local AnesthesiaIndications:A dministration of Local Anesthesia Given 03/15/2025 11:27 AM CDT 3 mL Surgical Site sodium chloride 0.9% infusion 30 mL/hr, intravenous, Continuous, Starting on Tue03/15/25 at 0945, Pre-Op Rate/Dose Verify 03/15/2025 12:15 PM CDT 30 mL/hr 30 mL/hr Restarted 03/15/2025 11:42 AM CDT 30 mL/hr 30 mL/hr Restarted 03/15/2025 11:34 AM CDT sodium chloride 0.9% irrigation As needed, Starting on Tue03/15/25 at 1128, Intra-Op Given 03/15/2025 11:28 AM CDT 1,000 mL Surgical Site documented in this encounter Discontinued Medications Medication Sig Discontinue Reason Start Date End Da te meloxicam (MOBIC) 15 mg tabletIndications:Synov itis of hand,Positive CHRISSIE (antinuclear antibody),Polyarthralgi a TAKE 1 TABLET(15 MG) BY MOUTH DAILY WITH BREAKFAST Therapy completed 08/20/2022 03/15/2025 documented as of this encounter Active and Recently Administered Medications Times are shown in CDT. Scheduled Medication Order 03/13/2025 03/14/2025 03/15/2025 acetaminophen (TYLENOL) tablet 1,000 mg (COMPLETED) 1,000 mg, oral, Once, On Tue03/15/25 at 0945, For 1 dose, Pre-Op, Indications: Pre-Emptive Analgesia 0931 (Given - Provid er: Yolande Gutiérrez RN) Continuous Medication Order 03/13/2025 03/14/2025 03/15/2025 sodium chloride 0.9% infusion 30 mL/hr, intravenous, Continuous, Starting on Tue03/15/25 at 0945, Pre-Op 0931 (New Bag - Prov ider: Yolande Gutiérrez, RN)1053 (Rate/Dose Verify - Provider: Judith Thomas RN)1055 (Rate/Dose Verify - Provider: Barbara Oshea CRNA)1133 (Paused - Provider: Barbara Oshea CRNA - Comment: Switch to gravity)1134 (Restarted - Provider: Barbara Oshea CRNA)1142 (Restarted - Provider: Yoli Agrawal, LEMUEL)1215 (Rate/Dose Verify - Provider: Yoli Agrawal RN)1218 (Stopped - Provider: Yolande Gutiérrez, LEMUEL) PRN Medication Order 03/13/2025 03/14/2025 03/15/2025 BUPivacaine-EPINEPHrine (MARCAINE with EPI) 0.5 %-1:200,000 preservative free injection (CANCELED) As needed, Starting on Tue03/15/25 at 1127, Intra-Op 1127 (Given - Provid er: Myron Espino MD) lidocaine-EPINEPHrine (XYLOCAINE with EPI) 1 %-1:200,000 preservative free injection (CANCELED) As needed, Starting on Tue03/15/25 at 1127, Intra-Op, Indications: Administration of Local Anesthesia 1127 (Given - Provid er: Myron Espino MD) sodium chloride 0.9% irrigation (CANCELED) As needed, Starting on Tue03/15/25 at 1128, Intra-Op 1128 (Given - Provid er: Myron Espino MD - Comment: on sterile field) documented in this encounter Orders Medications Ordered That Glenn ht Not Have Been Administered Count Last Ordered Date First Ordered Date Carrier Fluids for Secondary Infusion - 0.9% Sodium Chloride 1 03/15/2025 fentaNYL (SUBLIMAZE) preserv ative free injection 50 mcg 1 03/15/2025 naloxone (NARCAN) 0.4 mg/mL injection 0.04-0.4 mg 1 03/15/2025 ondansetron (ZOFRAN) injection 4 mg 1 03/15 prochlorperazine (COMPAZINE) injection 5 mg 1 03/15/2025 sodium chloride 0.9% flush 0.5-20 mL 1 03/01 Diet Count Last Ordered Date First Orde red Date ADULT DISCHARGE DIET 1 03/15/2025 Nursing Count Last Ordered Date First Orde red Date DISCHARGE ACTIVITY 1 03/15/2025 DISCHARGE CALL PROVIDER 6 03/15/2025 DISCHARGE DRESSING 2 03/15/2025 Discharge Count Last Ordered Date First Orde red Date DISCHARGE PATIENT 1 03/15/2025 documented in this encounter Care Teams Medical Interpreter Relationship Specialty Start Date End Date Vita Sanches NP [address] [place] [address] PCP - General Family Medicine 06/19/24 Brendan Metz MD [address] [place] [id number] Consulting Physician Pulmonary Disease 01/30/25 documented as of this encounter
--- OUTSIDE RECORDS SUMMARY | 2025-03-16 23:13 | XMS_ITS | Encounter Summary ---
Author Organization [facility] Healthcare Address [address] [place] [address] Care Team Providers Care Carburetor Mechanic Name Role Phone Vita Sanches NP Primary Care Provider Brendan Metz MD Unavailable [phone] Reason for Visit * Auth/Cert (Routine) Specialty Diagnoses / Procedures Referred By Janna whitmore Referred To Contact Diagnoses Lipoma of right upper extremity Lipoma of right upper extremity [D17.21] Procedures IA EXC TUMOR SOFT TISSUE UPPER ARM/ELBOW SUBQ 3CM/> EXCISION OF LIPOMA OF RIGHT ARM Referral ID Status Reason Start Date Expiration Date Visits Re quested Visits Authorized [id number] 1 1 Encounter Details Date Type Department Care Team ([facility] Contact Info) Description 03/15/2025 8:59 AM CDT - 03/15/2025 12:57 PM CDT Hospital Encounter [facility] Operating Room [address] [place] [address] Myron Espino MD [address] [place] [address] [address] Lipoma of right upper extremity Discharge Disposition: Discharge to home or self care Social History Tobacco Use Types Packs/Day Years [...] occasion? Never 03/15/2025 9:14 AM CDT Parth Gutiérrez, RN documented as of this encounter Discharge Instructions * Discharge Instructions* Yolande Gutiérrez RN - 03/15/2025 12:31 PM CDT Follow up in 2 weeks. Call office for appointment [phone] May remove dressings and shower next day If steri strips in place, leave alone. They will fall off in about a week Do not scrub incisions. Let soapy water run over them and pat dry * Attachments The following attachments cannot be sent through Care Everywhere. * Lipoma (Discharge Care) (Cameroonian) * General Anesthesia (Discharge Care) (Cameroonian) * [facility] PATHWAY TO EXCELLENT CARE AFTER SURGERY documented in this encounter Medications at Time of Discharge albuterol HFA (PROVENTIL HFA,VENTOLIN HFA,PROAIR HFA) 90 mcg/actuation inhalerIndications:Se kym persistent asthma without complication (HCC) Inhale 2 [...] mcg inhalerIndications:Se mejía persistent asthma without complication ([facility]) Inhale 1 puff daily 90 each 1 10/15/2024 insulin glargine (LANTUS) 100 unit/mL (3 mL) pen for injectionIndications: Type 2 diabetes mellitus with diabetic polyneuropathy, with long-term current use of insulin ([facility]) Inject 22 Units under the skin daily 10/24/2024 lamoTRIgine (LaMICtal) 100 mg tablet 01/11/2023 lancets (CityV[employer]uch Delica Plus Lancet) 30 gauge misc USE TO TEST ONCE DAILY 100 each 1 02/14/2024 levothyroxine (SYNTHROID) 25 mcg tablet TAKE 1 TABLET BY MOUTH DAILY 100 tablet 1 12/17/2023 lisinopriL (PRINIVIL,ZESTRIL) 2.5 mg tabletIndications:Typ e 2 diabetes mellitus with diabetic polyneuropathy, with long-term current use of insulin ([facility]),Type 2 diabetes mellitus with microalbuminuria, with long-term current use of insulin ([facility]) Take 1 tablet (2.5 mg total) by mouth daily 90 tablet 1 01/25/2024 metFORMIN (GLUCOPHAGE) 1,000 mg tablet TAKE 1 TABLET(1000 MG) BY MOUTH TWICE DAILY WITH MEALS 180 tablet 1 07/26/2024 montelukast (SINGULAIR) 10 mg tabletIndications:Chr onic rhinitis Take 1 tablet (10 mg total) by mouth nightly 90 tablet 3 10/15/2024 YuuConnect Verio Reflect Meter miscIndications:E11.9 , Z79.4. A1c 7.9 on 10/24/23 1 each by other route daily 1 each 10/24/2023 pen needle, diabetic (BD Joi 2nd Gen Pen Needle) 32 gauge x 5/32 needleIndications:Typ e 2 diabetes mellitus with diabetic polyneuropathy, with long-term current use of insulin ([facility]),Type 2 diabetes mellitus with microalbuminuria, with long-term current use of insulin ([facility]),Type 2 diabetes mellitus with hyperglycemia, with long-term current use of insulin ([facility]) INJECT 1 PEN NEEDLE UNDER THE SKIN [...] - TELEPHONE ONLY, NO PHYSICAL EXAM - [facility] PAT Date: 03/07/25 PAT RN completed assessment with [...] deficit hyperactivity disorder (ADHD) 06/01/2022 care per [facility] Bipolar 1 disorder (HCC) Borderline [...] walking funny Unable to walk and drools Oliver Other (See comments) CURRENT MEDICATIONS Med List [...] sensor device -- 06/20/24 -- Vita Sanches, BUSINESS SYSTEMS MANAGER 1 each every 14 (fourteen) days Please [...] flash glucose scanning reader (FreeStyle Kalyn 2 [place]) misc () -- 06/20/24 02/14/25 Vita Sanches, KI 1 each once for 1 dose Please provide whichever CGM reader insurance will cover. hfxshxxrkmy-rwjovyqwg-yzsaddti (Trelegy Ellipta) 100-62.5-25 mcg inhaler -- 10/15/24 -- Brendan Metz MD Inhale 1 puff daily insulin glargine (LANTUS) 100 unit/mL (3 mL) pen for injection -- 10/24/24 03/07/25 Vita Sanches, BUSINESS SYSTEMS MANAGER Inject 22 Units under the skin daily [...] by mouth nightly OneTouch Verio Reflect Meter [facility] [place] 10/24/23 -- Kristine Garsia MD 1 [...] Larsen RN - 03/07/2025 3:55 PM CDT [phone] We are pleased that you and your doctor have chosen [facility] for your surgery. We hope that the [...] 145 mg tablet Take morning of surgery zxqhlwusnop-mscdmcbbt-xstucdlc (Trelegy Ellipta) 100-62.5-25 mcg inhaler Take morning [...] prior to surgery Use no make-up, nail omani, lotions, oils or powders on your skin. [...] down the bahena until you see the [employer]/coffee shop, there will be elevators to the [...] - DEVICE Final Result Performing Organization Address [facility] Co de Phone Number [facility] (TOJTN) 1 [facility] [place] [address] * POCT glucose (03/15/2025 9:28 AM CDT) Glucose, POC 178 70 - 199 mg/dL Blood 03/15/2025 9:28 AM CDT 03/15/2025 9:28 AM CDT Myron Espino MD LAB POCT ORDERABLES - DEVICE Final Result Performing Organization Address [facility] Co de Phone Number [facility] (YONFM) 1 [facility] [place] [address] documented in this encounter Visit Diagnoses Diagnosis Lipoma of right upper extremity- Primary documented in this encounter Admitting Diagnoses Diagnosis Lipoma of right upper extremity documented in this encounter Administered Medications Inactive Administered Medications - up to 3 most recent administrations Medication Order MAR Action Action Date Dose Rate Site acetaminophen (TYLENOL) tablet 1,000 mg 1,000 mg, oral, Once, On Tue03/15/25 at 0945, For 1 dose, Pre-Op, Indications: Pre-Emptive AnalgesiaIndications:Pre- Emptive Analgesia Given 03/15/2025 9:31 AM CDT 1,000 mg sodium chloride 0.9% infusion 30 mL/hr, intravenous, Continuous, Starting on Tue03/15/25 at 0945, Pre-Op Rate/Dose Verify 03/15/2025 12:15 PM CDT 30 mL/hr 30 mL/hr Restarted 03/15/2025 11:42 AM CDT 30 mL/hr 30 mL/hr Restarted 03/15/2025 11:34 AM CDT documented in this encounter Discontinued Medications Medication [...] 0931 (New Bag - Prov ider: Yolande Gutiérrez RN)1053 (Rate/Dose Verify - Provider: Judith Thomas RN)1055 (Rate/Dose Verify - Provider: Barbara Oshea CRNA)1133 (Paused - Provider: Barbara Oshea CRNA - Comment: Switch to gravity)1134 (Restarted - Provider: Barbara Oshea CRNA)1142 (Restarted - Provider: Yoli Agrawal RN)1215 (Rate/Dose Verify - Provider: Yoli Agrawal RN)1218 (Stopped - Provider: Yolande Gutiérrez RN) PRN Medication Order 03/13/2025 03/14/2025 03/15/2025 BUPivacaine-EPINEPHrine [...] Count Last Ordered Date First Ordered Date BUPivacaine-EPINEPHrine (MAR LUZ with EPI) 0.5 %-1:200,000 preservative free injection 1 03/15/2025 Carrier Fluids for Secondary Infusion - 0.9% Sodium Chloride 1 03/15/2025 fentaNYL (SUBLIMAZE) preserv ative free injection 50 mcg 1 03/15/2025 lidocaine-EPINEPHrine (XYLOC CAROLYNN with EPI) 1 %-1:200,000 preservative free injection 1 03/15/2025 naloxone (NARCAN) 0.4 mg/mL injection 0.04-0.4 mg 1 03/15/2025 ondansetron (ZOFRAN) injection 4 mg 1 03/15 prochlorperazine (COMPAZINE) injection 5 mg 1 03/15/2025 sodium chloride 0.9% flush 0.5-20 mL 1 03/01 sodium chloride 0.9% irrigation 1 Diet Count Last Ordered Date First Orde red Date ADULT DISCHARGE DIET 1 03/15/2025 Nursing Count Last Ordered Date First Orde red Date DISCHARGE ACTIVITY 1 03/15/2025 DISCHARGE CALL PROVIDER 6 03/15/2025 DISCHARGE DRESSING 2 03/15/2025 Discharge Count Last Ordered Date First Orde red Date DISCHARGE PATIENT 1 03/15/2025 documented in this encounter Care Teams Carburetor Mechanic Relationship Specialty Start Date End Date Vita Sanches, BUSINESS SYSTEMS MANAGER [address] [place] [address] PCP - General Family Medicine 06/19/24 Brendan Metz MD [address] [place] [address] Consulting Physician Pulmonary Disease 01/30/25 documented as of this encounter
--- OUTSIDE RECORDS SUMMARY | 2025-03-16 23:13 | XMS_ITS | Encounter Summary ---
Author Organization [facility] Healthcare Address [address] [place] [address] Care Team Providers Care Certified Scrum Master Name Role Phone Vita Sanches NP Primary Care Provider Brendan Metz MD Unavailable [phone] Reason for Visit * Reason Onset Date Comments Recommendation Request 03/08/2025 Encounter Details Date Type Department Care Team (Late st Contact Info) Description 03/08/2025 Telephone [facility] Medical Group Primary Care at [address] [place] [address] Vita Sanches, KI [address] [place] [address] [address] [place] [address] Recommendation Request Social History Tobacco Use Types Packs/Day Years Used Date Smoking Tobacco: Never Smokeless Tobacco: Never AUDIT-C Answer Date Recorded Q1: How often do you have a drink containing alcohol? Never 03/07/2025 Q2: How many drinks containi ng alcohol do you have on a typical day when you are drinking? Patient does not drink Q3: How often do you have si x or more drinks on one occasion? Never 03/07/2025 PHQ-2 Answer Date Recorded PHQ-2 Total Score [...] encounter Miscellaneous Notes * Telephone Encounter - Miriam Cormier MA - 03/12/2025 9:48 AM CDT I spoke with pt and she said we can talk about her neuropathy on 03/28/25 at her visit. * Telephone Encounter - Viktoriya Chamorro - 03/08/2025 3:15 PM CDT Recommendation Request Note: This request is for a specialty recommendation, not an insurance referral. Specialty: Neurology Why does the patient want to go to this specialist? Neuropathy Additional Comments/Concerns: also sent patient to assist line as symptoms have progressed. Please give recommendation and referral Does message need to be routed? Yes-Action Needed documented in this encounter Plan of Treatment Not on file documented as of this encounter Visit Diagnoses Not on filedocumented in this encounter Care Teams Certified Scrum Master Relationship Specialty Start Date End Date Vita Sanches NP [address] [facility] [place] [address] PCP - General Family Medicine 06/19/24 Brendan Metz MD [address] [facility] [address] [place] [address] Consulting Physician Pulmonary Disease 01/30/25 documented as of this encounter
--- OUTSIDE RECORDS SUMMARY | 2025-03-16 23:14 | XMS_ITS | Patient Health Record ---
Author Organization [facility] Address [address] [place] [address] Care Team Providers Care Animal Physiology Teacher Name Role Phone Yara Arguello Primary Care Provider Dorie Dougherty [phone] Allergies Allergen (clinical drug ingredient) Drug/Non Drug Allergy documented on EMR Reaction Allergy Type Onset Date Status ziprasidone Geodon Unknown Drug Allergy Activ e Haldol Unknown Drug Allergy Active Reason For Referral No Information Medications Medication SIG (Take, Route, Frequency, Duration) Notes Start Date End Date Status UltiCare Mini Pen Gem 32G X 6 MM DIRECTED WITH VICTOZA LEVEMIR TWICE A DAY; Duration: 50 Active metFORMIN HCl 1000 mg TAKE 1 TABLET BY M OUTH TWICE A DAY WITH MORNING AND EVENING MEALS; Duration: 30 Active Levothyroxine Sodium 25 MCG TAKE 1 TABLET BY MOUTH DAILY; Duration: 30 Active Levemir 100 UNIT/ML as directed Subcutaneous once a day; Duration: 30 days 11/03/2021 Active Nebulizer - as directed three times daily; Duration: 30 days 08/23/2017 Active Fenofibrate 48 mg TAKE 1 TABLET BY ISRAEL TH DAILY; Duration: 30 Active OneTouch Ultra - TEST BLOOD SUGAR TWI CE A DAY; Duration: 50 Active glipiZIDE 5 mg TAKE 1 TABLET BY ISRAEL TH DAILY; Duration: 30 Active Victoza 18 MG/3ML INJECT 0.6MG SUBCUTANEOUSLY EVERY WEEK; Duration: 30 Active Pregabalin 75 MG 1 capsule Orally Twi ce a day Active Zoloft 100 MG 1 tablet Orally Once a day; Duration: 30 days Unknown Albuterol Sulfate 108 (90 Base) MCG/ACT 2 puffs as needed Inhalation every 6 hrs Active Levothyroxine Sodium 75 MCG 1 tablet on an empty stomach in the morning Orally Once a day Unknown Alcohol Prep 70 % USE TWICE A DAY DIRECTED; Duration: 50 Active Ipratropium-Albuterol 0.5-2.5 (3) MG/3ML 3 ml Inhalation every 12 hrs; Duration: 30 days 08/23/2017 Active Gabapentin 300 MG 1 capsule Orally Onc e a day; Duration: 30 day(s) 12/27/2017 Unknown Apidra 100 UNIT/ML 10 units Subcutaneou s three times daily before meals Unknown OneTouch Delica Plus [place]26N - USE TO TEST BLOOD SUGAR TWICE A DAY; Duration: 50 Active KlonoPIN 0.5 MG 1 tablet Orally twic e a day as needed; Duration: 30 days 06/14/2017 Unknown Lisinopril 2.5 MG 1 tablet Orally Once a day; Duration: 30 day(s) For urine in kidneys not HTN Active predniSONE 20 MG 3 tablets Orally Onc e a day x 5 days Unknown ARIPiprazole ER 400 MG as directed Intramuscular Once a month; Duration: 30 days monthly Active lamoTRIgine 150 MG 1 tablet Orally Twic e a day; Duration: 30 days Takes BID Active Albuterol Sulfate HFA 108 (90 Base) MCG/ACT 2 puffs as needed Inhalation every 4 hrs; Duration: 30 days 02/23/2017 Unknown buPROPion HCl ER (XL) 150 MG 1 tablet in the morning Orally Once a day; Duration: 30 days 02/12/2022 Active Vitamin B12 500 MCG 1 tablet Orally Once a day; Duration: 30 day(s) 12/24/2016 Unknown Doxycycline Hyclate 100 MG 1 capsule Orally every 12 hrs x 14 days Unknown Social History Tobacco Use: Social History Observation Description Date Details (start date - stop date) Never Smoker NA - NA Sex Assigned At : Social History Observation Description Sex Assigned At Female Dont use, Tobacco Use/Smoking Question Answer Notes Are you a nonsmoker Alcohol Screen (Audit-C) Question Answer Notes Did you have a drink containing alcohol in the p ast year? No Section Notes: Lives at mother in law's house in [place] with fiance of 4 years Andrez. Has one bio daughter 25 years old who also has bipolar disorder, watches her grandson for extra money. Enjoys crafts, collecting Hello Swathi and [place] skulls. Lives at mother in law's house in [place] with fiance of 4 years Andrez. Has one bio daughter 25 years old who also has bipolar disorder, watches her grandson for extra money. Enjoys crafts, collecting Hello Swathi and [place] skulls. Lives at mother in law's house in [place] with fiance of 4 years Andrez. Has one bio daughter 25 years old who also has bipolar disorder, watches her grandson for extra money. Enjoys crafts, collecting Hello Swathi and [place] skulls. Lives at mother in law's house in [place] with fiance of 4 years Andrez. Has one bio daughter 25 years old who also has bipolar disorder, watches her grandson for extra money. Enjoys crafts, collecting Hello Swathi and [place] skulls. Lives at mother in law's house in [place] with fiance of 4 years Andrez. Has one bio daughter 25 years old who also has bipolar disorder, watches her grandson for extra money. Enjoys crafts, collecting Hello Swathi and [place] skulls. Lives at mother in law's house in [place] with fiance of 4 years Andrez. Has one bio daughter 25 years old who also has bipolar disorder, watches her grandson for extra money. Enjoys crafts, collecting Hello Swathi and [place] skulls. Lives at mother in law's house in [place] with fiance of 4 years Andrez. Has one bio daughter 25 years old who also has bipolar disorder, watches her grandson for extra money. Enjoys crafts, collecting Hello Swathi and [place] skulls. Lives at mother in law's house in [place] with fiance of 4 years Andrez. Has one bio daughter 25 years old who also has bipolar disorder, watches her grandson for extra money. Enjoys crafts, collecting Hello Swathi and [place] skulls. Lives at mother in law's house in [place] with fiance of 4 years Andrez. Has one bio daughter 25 years old who also has bipolar disorder, watches her grandson for extra money. Enjoys crafts, collecting Hello Swathi and [place] skulls. Lives at mother in laws house in [place] with fiance of 4 years Andrez. Has one bio daughter 25 years old who also has bipolar disorder, watches her grandson for extra money. Enjoys crafts, collecting Hello Swathi and [place] skulls. Lives at mother in law's house in [place] with fiance of 4 years Andrez. Has one bio daughter 25 years old who also has bipolar disorder, watches her grandson for extra money. Enjoys crafts, collecting Hello Swathi and [place] skulls. Lives at mother in law's house in [place] with fiance of 4 years Andrez. Has one bio daughter 25 years old who also has bipolar disorder, watches her grandson for extra money. Enjoys crafts, collecting Hello Swathi and [place] skulls. Problems Problem Type SNOMED Code ICD Code Onset Dates Problem Status W/U Status Risk Notes Problem Anxiety disorder (929317269) Anxiety disorder, unspecified (F41.9) 2 Active confirmed Problem Bipolar 1 disorder (082654778) Bipolar 1 disorder (F31.9) 2 Active confirmed Problem Vitamin D deficiency (74575089) Vitamin D deficiency (E55.9) Active confirmed Problem Asthma (897184135) Asthma (J45.909) Active confirmed Problem Generalized anxiety disorder (41779542) ALPESH (generalized anxiety disorder) (F41.1) 2 Active confirmed Problem Neuropathy (472352314) Neuropathy (G62.9) Active confirmed Problem Pneumonia (936924981) Pneumonia (J18.9) Active confirmed Problem Obese class I (finding) (378074141132109) Obesity (BMI 30.0-34.9) (E66.9) Active confirmed Problem Hypothyroidism (08472154) Hypothyroidism, unspecified type (E03.9) Active confirmed Problem Developmental delay (372824780) Development delay (R62.50) Active confirmed Problem Hyperglycemia due to type 2 diabetes mellitus (345194352914159) Type 2 diabetes mellitus with hyperglycemia, unspecified jail insulin use status (E11.65) Active confirmed Problem Obesity (675573514) Obesity, unspecified classification, unspecified obesity type, unspecified whether serious comorbidity present (E66.9) Active confirmed Problem Abnormal findings on diagnostic imaging of breast (451197115) Abnormality of left breast on screening mammogram (R92.8) Active confirmed Problem Plain X-ray of chest abnormal (finding) (1997129818) Abnormal chest x-ray (R93.89) Active confirmed Problem Cough (38322597) Cough (R05.9) Active confirmed Plan Of Treatment No Information Insurance Providers Payer Name Payer Address Payer Phone Subscriber Number Group Number Insured Name Patient Relationship to Insured Coverage Start Date Coverage End Date [facility] Medicare [address] [address] [place] [address] [id number] Jovita Dougherty Self - patient is the insured 2 [employer] Medicare Assure [address] [address] [place] [address] [id number] Eladia Doughertyfer Self - patient is the insured 2 MEDICAID [address] [place] [address] [id number] DoughertyJovita Self - patient is the insured 9 [facility] Att[facility] Claims Department [address] [place] [address] [id number] Dougherty Jovita Self - patient is the insured 3 2 [facility] Att[facility] Claims Department [address] [place] [address] [id number] DoughertyJodiJovita Self - patient is the insured 2 2 [facility] [address] [place] [address] [id number] DoughertyJovita Self - patient is the insured 2 [facility] [address] [place] [address] [id number] FarhatJovita Self - patient is the insured 2 Medications Administered Medication Instructions Date of Administration Dosage Notes Abilify Maintena 08/24/2021 400 mg Patient tolerated well. Abilify Maintena 09/25/2021 400 mg Patint t olerated well. Abilify Maintena 10/23/2021 400 mg Pt janice w ell. Abilify Maintena 11/20/2021 400 mg patient tolerated well, declines informational packet at this time, denies any further questions or concerns at this time. Abilify Maintena 12/18/2021 400 mg Pt janice w ell. Marisol Maintena 01/15/2022 400 mg Patient tolerated well, declined informational packet at this time, denies any questions or concerns. Abilify Maintena 02/12/2022 400 mg Patient tolerated well, denies any further questions or concerns. Marisol Maintena 03/12/2022 400 mg Pt janice w ell. Invega Sustenna 02/10/2016 117 mg EXP-06/20 17 [employer] Invega Sustenna 03/09/2016 117 mg Exp-07/31/2017 Compensation [employer] Client tolerated injection well. Invega Sustenna 04/20/2016 117 mg Exp-09/28/2017 Compensation [employer] Client tolerated injection well Invega Sustenna 05/18/2016 117 mg Compensation [employer] Client tolerated injection well. Invega Sustenna 07/16/2016 117 mg Compensation Expert: [employer] Pt. tolerated well Invega Sustenna 08/17/2016 117 mg Compensation [employer] Client tolerated injection well. Invega Sustenna 09/15/2016 117 mg Compensation Expert: [employer] Patient tolerated well. Medical (General) History Medical History History ICD Code Diabetes Anxiety Bipolar disorder Obesity Asthma Surgical History Surgery Date(Month/Year) D & C 2006 bilateral knee surgery 2005 bilateral knee surgery 2004 chin implant 1991 deviated septum repair 1991 total hysterectomy 09/2017 Hospitalization History Reason Date(Month/Year) [facility] med adjustment 2 014
--- OUTSIDE RECORDS SUMMARY | 2025-03-16 23:14 | XMS_ITS | Patient Health Record ---
Author Organization [facility] [employer] [facility] Address [address] [place] [address] Care Team Providers Care Counter Caser Name Role Phone Vita Anand Primary Care Provider Un available Sophia Smith Unavailable [phone] KeiryToya Unavailable [phone] Deana Siegel Unavailable [phone] Allergies Allergen (clinical drug ingredient) Drug/Non Drug Allergy documented on EMR Reaction Allergy Type Onset Date Status ziprasidone Geodon Unknown Drug Allergy 11/02/2023 Acti ve Haldol Unknown Drug Allergy 11/02/2023 Active Results Component Value Reference Range Notes THYROID PANEL WITH TSH (7444 ) Reviewed date:11/22/2024 06:16:54 PM Interpretation: Performing Lab:JO[facility][id number] Alexis Morse, [id number] Peggy Reese MD Notes/Report: PATIENT WILL HAVE DR TO SEND DUPLICATE TEST TO PRIMARY DR FASTING:YES MULTIPLE COLLECTION TIMES FOR SAME TEST TYPE. FASTING: YES T3 UPTAKE 28 22-35 % T4 (THYROXINE), TOTAL 7.7 5.1-11.9 mcg/dL FREE T4 INDEX (T7) 2.2 1.4-3.8 TSH 2.11 Reference Range > or = 20 Years 0.40-4.50 Ranges First trimester 0.26-2.66 Second trimester 0.55-2.73 Third trimester 0.43-2.91 CBC (INCLUDES DIFF/PLT) (639 9) Reviewed date:11/22/2024 06:16:04 PM Interpretation: Performing Lab:MIKE [facility] [id number] Administration Mauri Yin [id number] [facility] Notes/Report: PATIENT WILL HAVE DR TO SEND DUPLICATE TEST TO PRIMARY FASTING:YES MULTIPLE COLLECTION TIMES FOR SAME TEST TYPE. FASTING: YES WHITE BLOOD CELL COUNT 5.8 3.8-10.8 Thousand/ uL RED BLOOD CELL COUNT 4.47 3.80-5.10 Million/uL HEMOGLOBIN 13.6 11.7-15.5 g/dL HEMATOCRIT 40.6 35.0-45.0 % MCV 90.8 80.0-100.0 fL MCH 30.4 27.0-33.0 pg MCHC 33.5 32.0-36.0 g/dL For adults, a slight decrease in the calculated MCHC value (in the range of 30 to 32 g/dL) is most likely not clinically significant; however, it should be interpreted with caution in correlation with other red cell parameters and the patient's clinical condition. RDW 14.1 11.0-15.0 % PLATELET COUNT 158 140-400 Thousand/uL MPV 11.3 7.5-12.5 fL ABSOLUTE NEUTROPHILS 4379 7971-4184 cells/uL ABSOLUTE LYMPHOCYTES 450 478-1688 cells/uL ABSOLUTE MONOCYTES 348 200-950 cells/uL ABSOLUTE EOSINOPHILS 220 15-500 cells/uL ABSOLUTE BASOPHILS 12 0-200 cells/uL NEUTROPHILS 75.5 LYMPHOCYTES 14.5 MONOCYTES 6.0 EOSINOPHILS 3.8 BASOPHILS 0.2 HEMOGLOBIN A1c (496) Reviewed date:11/22/2024 06:15:44 PM Interpretation: Performing Lab:MIKE [place] [id number] Administration Mauri Yin [id number] [facility] Notes/Report: PATIENT WILL HAVE DR TO SEND DUPLICATE TEST TO PRIMARY FASTING:YES MULTIPLE COLLECTION TIMES FOR SAME TEST TYPE. FASTING: YES HEMOGLOBIN A1c 7.0 <5.7 % of total Hgb For someone without known diabetes, a hemoglobin [...] A1c for diagnosis of diabetes for children. Reason For Referral No Information Medications Medication SIG (Take, Route, Frequency, Duration) Notes Start Date End Date Status ONETOUCH DELICA PLUS LANCET 30 GAUGE *Reorder from [facility] for eRx and Interaction Alerts* 11/02/2023 Active Trelegy Ellipta 100-62.5-25 mcg Inhalation *[facility]* 11/02/2023 Active glipiZIDE 5 MG Oral 11/02/2023 Acti ve BD BEAU 2ND GEN PEN NEEDLE 32 GAUGE X *Reorder from [facility] for eRx and Interaction Alerts* 11/02/2023 Active ONETOUCH VERIO REFLECT METER *Reorder from [facility] for eRx and Interaction Alerts* 11/02/2023 Active Montelukast Sodium 10 MG Oral 11/02/2023 Active lamoTRIgine 100 MG 1 tablet Oral twice a day; Duration: 90 days Active BUDESONIDE-FORMOTEROL HFA 80 MCG-4.5 MCG/ACTUATION AEROSOL INHALER *Reorder from [facility] for eRx and Interaction Alerts* 11/02/2023 Active Ozempic (0.25 or 0.5 MG/DOSE) 2 MG/3ML Subcutaneous *[facility]* 11/02/2023 Active Meloxicam 15 MG Oral 11/02/2023 Act catrachita OneTouch Verio In Vitro 11/02/2023 Acti ve Albuterol Sulfate (2.5 MG/3ML) 0.083% Inhalation 11/02/2023 Active Levothyroxine Sodium 25 MCG Oral 11/02/2023 Active metFORMIN HCl 1000 MG Oral 11/02/2023 Active ProAir HFA 108 (90 Base) MCG/ACT Inhalation 11/02/2023 Active Lisinopril 2.5 MG Oral 11/02/2023 A ctive ARIPiprazole 30 MG 1 tablet Orally Once a day; Duration: 90 days Active Lantus SoloStar 100 UNIT/ML Subcutaneous 11/02/2023 Active Fenofibrate 145 MG Oral 11/02/2023 Active OneTouch Delica Plus [id number] 11/02/2023 Active Social History Tobacco Use: Social History Observation Description Date Details (start date - stop date) Never Smoker NA - NA Sex Assigned At : Social History Observation Description Sex Assigned At Female Household Question Answer Notes Marital status: Number of adults in household: 3 Tobacco Control (Standard) Question Answer Notes Tobacco use: Nonsmoker Problems Problem Type SNOMED Code ICD Code Onset Dates Problem Status W/U Status Risk Notes Problem Vitamin D deficiency (42899140) Vitamin D deficiency, unspecified (E55.9) Active confirmed Problem Cannabis dependence (96412089) Cannabis dependence, uncomplicated (F12.20) 4 Active confirmed Problem Generalized anxiety disorder (34864561) Generalized anxiety disorder (F41.1) 4 Active confirmed Problem Bipolar I disorder (697042669) Bipolar I disorder (F31.9) Active confirmed Problem 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 Problem Essential hypertension (08212081) Benign essential HTN (I10) Active confirmed Problem Bipolar affective disorder, currently manic, mild (673223125) Bipolar I disorder, most recent episode (or current) manic, mild (F31.11) Active confirmed Vital Signs Heart Rate 82 /min 02/13/2025 Height-cm 175.26 cm 02/13/2025 Blood pressure diastolic 78 mm Hg 02/13/2025 Weight-kg 100.7 kg 02/13/2025 Height 69.00 in 02/13/2025 Blood pressure systolic 119 mm Hg 02/13/2025 Weight 222 lbs 02/13/2025 BMI 32.78 kg/m2 02/13/2025 Encounters Encounter Location Date Provider Diagnosis [facility] [employer] [address] [facility] [address] [place] [address] 03/21/2024 Toya Keiry Bipolar disorder, unspecified F31.9 and Generalized anxiety disorder F41.1 [facility] [employer] [facility] [address] [place] [address] 04/04/2024 Toya Keiry Bipolar disorder, unspecified F31.9 and Generalized anxiety disorder F41.1 [facility] [employer] [place] [address] [place] [address] 04/04/2024 Deana Siegel Generalized anxiety disorder F41.1 ; Bipolar disorder, unspecified F31.9 ; Cannabis dependence, uncomplicated F12.20 ; Vitamin D deficiency, unspecified E55.9 and Developmental disorder of scholastic skills, 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 [facility] [address] [place] [address] 04/26/2024 Toya Keiry Bipolar disorder, unspecified F31.9 ; Generalized anxiety disorder F41.1 and Cannabis dependence, uncomplicated F12.20 [facility] [address] [place] [address] 05/10/2024 Toya Keiry Bipolar disorder, unspecified F31.9 ; Generalized anxiety disorder F41.1 and Cannabis dependence, uncomplicated F12.20 [facility] [address] [place] [address] 06/21/2024 Toya Keiry Bipolar disorder, unspecified F31.9 ; Generalized anxiety disorder F41.1 ; Cannabis dependence, uncomplicated F12.20 and Developmental disorder of scholastic skills, 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 [facility] [address] [place] [address] 07/05/2024 Toya Keiry Bipolar disorder, unspecified F31.9 ; Generalized anxiety disorder F41.1 and Cannabis dependence, uncomplicated F12.20 [facility] [address] [place] [address] 07/12/2024 Sophia Hagoleg Bipolar disorder, unspecified F31.9 ; Generalized anxiety disorder F41.1 ; Cannabis dependence, uncomplicated F12.20 ; Vitamin D deficiency, unspecified E55.9 and Developmental disorder of scholastic skills, 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 [facility] [address] [place] [address] 09/12/2024 Toya Keiry Bipolar disorder, unspecified F31.9 ; Generalized anxiety disorder F41.1 ; Cannabis dependence, uncomplicated F12.20 and Developmental disorder of scholastic skills, 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20 [place] [address] [place] [address] 10/12/2024 Toya Keiry Encounter for screening for depression Z13.31 ; Bipolar I disorder F31.9 ; Generalized anxiety disorder F41.1 ; Cannabis dependence, uncomplicated F12.20 and Caffeine dependence F15.20 [place] [address] [place] [address] 10/26/2024 Toya Keiry Encounter for screening for depression Z13.31 ; Bipolar I disorder F31.9 ; Generalized anxiety disorder F41.1 ; Cannabis dependence, uncomplicated F12.20 and Caffeine dependence F15.20 [place] [address] [place] [address] 11/09/2024 Toya Keiry Encounter for screening for depression Z13.31 ; Bipolar I disorder F31.9 ; Generalized anxiety disorder F41.1 ; Cannabis dependence, uncomplicated F12.20 and Caffeine dependence F15.20 [place] [address] [facility] [address] [place] [address] 11/09/2024 Sophia Smith Bipolar I disorder F31.9 ; Generalized anxiety disorder F41.1 ; Vitamin D deficiency, unspecified E55.9 ; Cannabis dependence, uncomplicated F12.20 ; Benign essential HTN I10 and Encounter for screening for depression Z13.31 [place] [address] [place] [address] 11/23/2024 Toya Keiry Encounter for screening for depression Z13.31 ; Bipolar I disorder F31.9 ; Generalized anxiety disorder F41.1 ; Cannabis dependence, uncomplicated F12.20 and Caffeine dependence F15.20 [facility] [address] [place] [address] 12/07/2024 Toya Keiry Bipolar I disorder F31.9 ; Generalized anxiety disorder F41.1 ; Cannabis dependence, uncomplicated F12.20 ; Caffeine dependence F15.20 and Encounter for screening for depression Z13.31 [facility] [address] [place] [address] 12/21/2024 Toya Keiry Bipolar I disorder F31.9 ; Generalized anxiety disorder F41.1 ; Cannabis dependence, uncomplicated F12.20 ; Caffeine dependence F15.20 and Encounter for screening for depression Z13.31 [facility] [address] [place] [address] 01/18/2025 Toya Keiry Bipolar I disorder F31.9 ; Generalized anxiety disorder F41.1 ; Cannabis dependence, uncomplicated F12.20 ; Caffeine dependence F15.20 and Encounter for screening for depression Z13.31 [facility] [address] [place] [address] 02/08/2025 Toya Keiry Generalized anxiety disorder F41.1 ; Bipolar I disorder F31.9 ; Cannabis dependence, uncomplicated F12.20 ; Caffeine dependence F15.20 and Encounter for screening for depression Z13.31 [facility] [address] [place] [address] 02/13/2025 Sophia Smith Bipolar I disorder F31.9 ; Generalized anxiety disorder F41.1 ; Cannabis dependence, uncomplicated F12.20 and Vitamin D deficiency, unspecified E55.9 [facility] [address] [place] [address] 03/08/2025 Toyageorges Ricci Generalized anxiety disorder F41.1 ; Bipolar I disorder, most recent episode (or current) manic, mild F31.11 ; Cannabis dependence, uncomplicated F12.20 and Caffeine dependence F15.20 [facility] [address] [place] [address] 07/18/2024 Sophia [facility], [facility] [address] [place] [address] 07/18/2024 Sophia Smith [facility], [facility] [address] [place] [address] 09/10/2024 Sophia [facility], [facility] [address] [place] [address] 01/01/2025 Sophia Smith [facility], [facility] [address] [place] [address] 02/09/2025 Sophia Smith Assessments Encounter Date Diagnosis (ICD Code) Assessment Notes Treatment Notes Treatment Clinical Notes Section Notes 03/21/2024 Bipolar disorder, unspecified (ICD-10 - F31.9) 04/04/2024 Bipolar disorder, unspecified (ICD-10 - F31.9) stable cont abilify 20mg daily cont lamotrigine 100mg BID (200 mg total); take consistently, monitor for rash cont therapy stable, doing well review r/b/se of meds, including metabolic vs citizen of [place] diet and lifestyle, is happy with current meds, very stable from psychiatric perspective, reinforce healthy diet, physical activity, etc. no new orders cont therapy f/u 3 months, earlier if concerns 04/04/2024 Generalized anxiety disorder (ICD-10 - F41.1) minimal meds, therapy as above 04/04/2024 Bipolar disorder, unspecified (ICD-10 - F31.9) 04/26/2024 Bipolar disorder, unspecified (ICD-10 - F31.9) 05/10/2024 Bipolar disorder, unspecified (ICD-10 - F31.9) 06/21/2024 Bipolar disorder, unspecified (ICD-10 - F31.9) 07/05/2024 Bipolar disorder, unspecified (ICD-10 - F31.9) 09/12/2024 Bipolar disorder, unspecified (ICD-10 - F31.9) 07/12/2024 Bipolar disorder, unspecified (ICD-10 - F31.9) does not need refill on lamotrigine or abilify 20 mg at this time Assessment and Plan: 1. Bipolar Disorder - Currently on Lamotrigine 100 mg twice daily and Abilify 20 mg daily - Concerns about potential manic symptoms; reports irritability and difficulty sleeping, talkative, see HPI Plan: - Continue current doses of Lamotrigine 100 mg daily - Increase Abilify to 30 mg daily - Follow-up in one month to reassess medication efficacy and tolerability 2. Anxiety - denies any concerns with anxiety presently Plan: - Continue treatment regimen as discussed 3. Cannabis use - Reports daily cannabis use Plan: - Discussed risks of cannabis use on mental health and treatment. - Encourages to mnimize use and consider abstinence. 4. Vitamin D Deficiency - History of vitamin D deficiency - Not taking supplementation recently due to insurance coverage issues Plan: - Encourage purchase of lkaa-kjn-tfisbxj vitamin D supplements - No changes to prescription at this time - Follow-up on supplementation adherence in next visit 3. 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 Will obtain results for review - Review results in next appointment to adjust medical management as necessary Follow-up in one month, sooner if concerns arise 07/12/2024 Generalized anxiety disorder (ICD-10 - F41.1) Assessment and Plan: 1. Bipolar Disorder - Currently on Lamotrigine 100 mg twice daily and Abilify 20 mg daily - Concerns about potential manic symptoms; reports irritability and difficulty sleeping, talkative, see HPI Plan: - Continue current doses of Lamotrigine 100 mg daily - Increase Abilify to 30 mg daily - Follow-up in one month to reassess medication efficacy and tolerability 2. Anxiety - denies any concerns with anxiety presently Plan: - Continue treatment regimen as discussed 3. Cannabis use - Reports daily cannabis use Plan: - Discussed risks of cannabis use on mental health and treatment. - Encourages to mnimize use and consider abstinence. 4. Vitamin D Deficiency - History of vitamin D deficiency - Not taking supplementation recently due to insurance coverage issues Plan: - Encourage purchase of dvhp-bss-fbzhswf vitamin D supplements - No changes to prescription at this time - Follow-up on supplementation adherence in next visit 3. 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 Will obtain results for review - Review results in next appointment to adjust medical management as necessary Follow-up in one month, sooner if concerns arise 09/12/2024 Generalized anxiety disorder (ICD-10 - F41.1) Bipolar Disorder - Reports mood stable and satisfaction with current medication regimen Plan: - Continue Lamotrigine 100 mg twice a day - Continue Abilify 30 mg daily Anxiety - denies any concerns with anxiety presently Plan: - Continue treatment regimen as discussed Family and relationship stressors - Significant stress related to 's mental health and caregiving for [id number]-mx-paf Plan: - Encourage seeking support from friends, family, or support groups - Consider referral to therapist or counselor for additional support Cannabis use - Reports daily cannabis use Plan: - Discussed risks of cannabis use on mental health and treatment. - Encourages to mnimize use and consider abstinence. Vitamin D Deficiency - History of vitamin D deficiency - Not taking supplementation recently due to insurance coverage issues Plan: - Encourage purchase of escp-olc-lennvls vitamin D supplements General Health and Lab Monitoring - Recent A1c reported at 5 - Reports needing labs ordered, can't rememebr who ordered whgat last but knows she had an A1C Follow-up in 2 months, sooner if concerns arise. 09/12/2024 Bipolar I disorder (ICD-10 - F31.9) Bipolar Disorder - Reports mood stable and satisfaction with current medication regimen Plan: - Continue Lamotrigine 100 mg twice a day - Continue Abilify 30 mg daily Anxiety - denies any concerns with anxiety presently Plan: - Continue treatment regimen as discussed Family and relationship stressors - Significant stress related to 's mental health and caregiving for sevszv-hf-fhg Plan: - Encourage seeking support from friends, family, or support groups - Consider referral to therapist or counselor for additional support Cannabis use - Reports daily cannabis use Plan: - Discussed risks of cannabis use on mental health and treatment. - Encourages to mnimize use and consider abstinence. Vitamin D Deficiency - History of vitamin D deficiency - Not taking supplementation recently due to insurance coverage issues Plan: - Encourage purchase of srvi-pqz-oycxbrq vitamin D supplements General Health and Lab Monitoring - Recent A1c reported at 5 - Reports needing labs ordered, can't rememebr who ordered whgat last but knows she had an A1C Follow-up in 2 months, sooner if concerns arise. 09/26/2024 Bipolar I disorder (ICD-10 - F31.9) 10/12/2024 Encounter for screening for depression (ICD-10 - Z13.31) 10/12/2024 Bipolar I disorder (ICD-10 - F31.9) 10/26/2024 Encounter for screening for depression (ICD-10 - Z13.31) 10/26/2024 Bipolar I disorder (ICD-10 - F31.9) 11/09/2024 Encounter for screening for depression (ICD-10 - Z13.31) 11/09/2024 Bipolar I disorder (ICD-10 - F31.9) 11/09/2024 Bipolar I disorder (ICD-10 - F31.9) NOTE not changing dose, just stopping 10 mg and 20 mg tabs and changing to 30 mg tabs 11/23/2024 Encounter for screening for depression (ICD-10 - Z13.31) 11/23/2024 Bipolar I disorder (ICD-10 - F31.9) 12/07/2024 Generalized anxiety disorder (ICD-10 - F41.1) 12/07/2024 Bipolar I disorder (ICD-10 - F31.9) 12/21/2024 Generalized anxiety disorder (ICD-10 - F41.1) 12/21/2024 Bipolar I disorder (ICD-10 - F31.9) 01/18/2025 Generalized anxiety disorder (ICD-10 - F41.1) 01/18/2025 Bipolar I disorder (ICD-10 - F31.9) 02/08/2025 Generalized anxiety disorder (ICD-10 - F41.1) 02/08/2025 Bipolar I disorder (ICD-10 - F31.9) 02/13/2025 Bipolar I disorder (ICD-10 - F31.9) 03/08/2025 Generalized anxiety disorder (ICD-10 - F41.1) 03/08/2025 Bipolar I disorder, most recent episode (or current) manic, mild (ICD-10 - F31.11) 03/08/2025 Cannabis dependence, uncomplicated (ICD-10 - F12.20) 02/13/2025 Generalized anxiety disorder (ICD-10 - F41.1) 01/18/2025 Cannabis dependence, uncomplicated (ICD-10 - F12.20) 02/08/2025 Cannabis dependence, uncomplicated (ICD-10 - F12.20) 12/07/2024 Cannabis dependence, uncomplicated (ICD-10 - F12.20) 12/21/2024 Cannabis dependence, uncomplicated (ICD-10 - F12.20) 11/23/2024 Generalized anxiety disorder (ICD-10 - F41.1) 11/09/2024 Generalized anxiety disorder (ICD-10 - F41.1) 11/09/2024 Generalized anxiety disorder (ICD-10 - F41.1) 10/26/2024 Generalized anxiety disorder (ICD-10 - F41.1) 10/12/2024 Generalized anxiety disorder (ICD-10 - F41.1) 09/26/2024 Generalized anxiety disorder (ICD-10 - F41.1) 09/12/2024 Cannabis dependence, uncomplicated (ICD-10 - F12.20) Bipolar Disorder - Reports mood stable and satisfaction with current medication regimen Plan: - Continue Lamotrigine 100 mg twice a day - Continue Abilify 30 mg daily Anxiety - denies any concerns with anxiety presently Plan: - Continue treatment regimen as discussed Family and relationship stressors - Significant stress related to 's mental health and caregiving for idtocg-us-xmv Plan: - Encourage seeking support from friends, family, or support groups - Consider referral to therapist or counselor for additional support Cannabis use - Reports daily cannabis use Plan: - Discussed risks of cannabis use on mental health and treatment. - Encourages to mnimize use and consider abstinence. Vitamin D Deficiency - History of vitamin D deficiency - Not taking supplementation recently due to insurance coverage issues Plan: - Encourage purchase of wyhs-mbr-yckvbkj vitamin D supplements General Health and Lab Monitoring - Recent A1c reported at 5 - Reports needing labs ordered, can't rememebr who ordered whgat last but knows she had an A1C Follow-up in 2 months, sooner if concerns arise. 09/12/2024 Generalized anxiety disorder (ICD-10 - F41.1) 07/05/2024 Generalized anxiety disorder (ICD-10 - F41.1) 07/12/2024 Cannabis dependence, uncomplicated (ICD-10 - F12.20) Assessment and Plan: 1. Bipolar Disorder - Currently on Lamotrigine 100 mg twice daily and Abilify 20 mg daily - Concerns about potential manic symptoms; reports irritability and difficulty sleeping, talkative, see HPI Plan: - Continue current doses of Lamotrigine 100 mg daily - Increase Abilify to 30 mg daily - Follow-up in one month to reassess medication efficacy and tolerability 2. Anxiety - denies any concerns with anxiety presently Plan: - Continue treatment regimen as discussed 3. Cannabis use - Reports daily cannabis use Plan: - Discussed risks of cannabis use on mental health and treatment. - Encourages to mnimize use and consider abstinence. 4. Vitamin D Deficiency - History of vitamin D deficiency - Not taking supplementation recently due to insurance coverage issues Plan: - Encourage purchase of vdtm-ogd-eaivofs vitamin D supplements - No changes to prescription at this time - Follow-up on supplementation adherence in next visit 3. 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 Will obtain results for review - Review results in next appointment to adjust medical management as necessary Follow-up in one month, sooner if concerns arise 06/21/2024 Generalized anxiety disorder (ICD-10 - F41.1) 05/10/2024 Generalized anxiety disorder (ICD-10 - F41.1) 04/26/2024 Generalized anxiety disorder (ICD-10 - F41.1) 04/04/2024 Generalized anxiety disorder (ICD-10 - F41.1) 04/04/2024 Cannabis dependence, uncomplicated (ICD-10 - F12.20) daily Recommend decrease/stop cannabis use as it may be negatively impacting mood, motivation, anxiety, sleep, focus; can also contribute to development of psychosis 03/21/2024 Generalized anxiety disorder (ICD-10 - F41.1) 04/04/2024 Vitamin D deficiency, unspecified (ICD-10 - E55.9) taking OTC vit D 04/26/2024 Cannabis dependence, uncomplicated (ICD-10 - F12.20) 05/10/2024 Cannabis dependence, uncomplicated (ICD-10 - F12.20) 06/21/2024 Cannabis dependence, uncomplicated (ICD-10 - F12.20) 07/05/2024 Cannabis dependence, uncomplicated (ICD-10 - F12.20) 07/12/2024 Vitamin D deficiency, unspecified (ICD-10 - E55.9) Assessment and Plan: 1. Bipolar Disorder - Currently on Lamotrigine 100 mg twice daily and Abilify 20 mg daily - Concerns about potential manic symptoms; reports irritability and difficulty sleeping, talkative, see HPI Plan: - Continue current doses of Lamotrigine 100 mg daily - Increase Abilify to 30 mg daily - Follow-up in one month to reassess medication efficacy and tolerability 2. Anxiety - denies any concerns with anxiety presently Plan: - Continue treatment regimen as discussed 3. Cannabis use - Reports daily cannabis use Plan: - Discussed risks of cannabis use on mental health and treatment. - Encourages to mnimize use and consider abstinence. 4. Vitamin D Deficiency - History of vitamin D deficiency - Not taking supplementation recently due to insurance coverage issues Plan: - Encourage purchase of gtaq-fnu-yxvpgeq vitamin D supplements - No changes to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 strategies 03/08/2025 Other Client reports her mother helped her to get a new car. She now needs to sell her car that was nickel and diming her to . She states she has been more talkative than usual and been staying busier that usual. I do think I'm kind of manic lately. She is having a growth removed next week. She is concerned that her will not help out after her surgery, while she's recovering. Therapist actively listened to client and asked questions for clarification. Therapist then assisted client with exploring strategies to minimize her manic tendencies. PHQ=2 minimal ALPESH=0 none Plan Of Treatment Pending Test Test Name Order Date LIPID PANEL, STANDARD (7600) 09/12/2024 COMPREHENSIVE METABOLIC PANEL (13083) VITAMIN D,25-OH,TOTAL,IA (16854) 025 Next Appt Details Provider Name:Toya Ricci , 03/22/2025 09:00:00 AM, [address], [facility] [address], [place], [address], Provider Name:Sophia mae, 05/15/2025 02:00:00 PM, [address], [address], [place], [address], Insurance Providers Payer Name Payer Address Payer Phone Subscriber Number Group Number Insured Name Patient Relationship to Insured Coverage Start Date Coverage End Date [employer] Medicare Replacement/ Advantage - Ppo [address] [address] [place] [address] [id number] JOVITA RICHARDSON Self - patient is the insured [place] [address] [address] [place] [address] [id number] JOVITA RICHARDSON Self - patient is the insured Medical (General) History Medical History History ICD Code Past Psychiatric History: An xiety Disorder,Major Depressive Episode,Bipolar Disorder undefined Benign hypertension I10 Uncontrolled type 2 diabetes mellitus wi th hyperglycemia E11.65 Hypothyroidism E03.9 Developmental disorder of scholastic ski lls, 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 Mixed dyslipidemia E78.2 Asthma J45.909 Neuropathy G62.9 Low vitamin B12 level R79.89 Vitamin D deficiency, unspecified E55.9 Cannabis dependence, uncomplicated F12.2 0 Surgical History Surgery Date(Month/Year) Carpal tunnel surgery (26058) left, ulna r tunnel surgery as well Plastic surgery ss (G4027) face, as chil d Operative procedure on knee (5940456) Hysterectomy/revise vagina (04407) 08/01 Hospitalization History Reason Date(Month/Year) surgical
--- OUTSIDE RECORDS SUMMARY | 2025-03-17 02:24 | XMS_ITS ---
Author Organization [facility] Address [facility] [address] [address] Care Team Providers Care Rubber Insulator Name Role Phone Vita Anand Primary Care Provider Un available Sophia Smith Unavailable [phone] Toya Ricci Unavailable [phone] REASON FOR VISIT 2 week f/u Therapy Social History Sex Assigned At : Social History Observation Description Sex Assigned At Female Encounters Encounter Location Date Provider Diagnosis [facility] [place] [address] [facility] [address] [place] [address] 02/22/2025 Toya Ricci Plan Of Treatment Next Appt Details Provider Name:Toya Ricci , 03/22/2025 09:00:00 AM, [address] [place] [address], [address], [address], Provider Name:Sophia mae, 05/15/2025 02:00:00 PM, [address] [place] [address] [address], [address], [address], Progress Notes * MISAEL RICHARDSON LDOB:1974 (49 yo F)Acc No.[id number]:02/22/2025 Patient: Juan A MISAEL COBOS Provider: Stephon RICCI LCSW :1975 A ge:49 Y S ex:Female Date:02/22/2025 Address:[address] [place], [place] [address] Pcp:Vita OZUNAP Data: * Chief Complaints: * 1 . 2 week f/u Therapy. Assessment: Plan: * Treatment: * Billing Information: * Visit Code: * Procedure Codes: * Electronic signature of Amanda Ricci LCSW on 03/17/2025 at 02:24 AM CDT Sign off status: Pending Signatures: No Ad Hoc Signature Added * Provider: Stephon RICCI LCSW Date: 0 02/22/2025 Generated for Jossue vogt/Griselda/Walker on: 03/17/2025 02:24 AM CDT
--- OUTSIDE RECORDS SUMMARY | 2025-03-17 02:24 | XMS_ITS | Clinical Summary ---
Author Organization [facility] Address [address] [address] Phone Care Team Providers Care Electrotherapist Name Role Phone Unavailable Primary Care Provider [...] intellectual disability 06/14/2018 S/P complete hysterectomy 09/2017 [place] 2017 Resolved Problems Problem Noted Date Diagnosed [...] on file Legal Sex Female 4:10 AM [employer] Gender Identity Not on file Sexual Orientation Not on file Last Filed Vital Signs Vital Sign Reading Time Taken Comments Blood Pressure 106/67 06/17/2021 11:08 AM [employer] Pulse 83 06/17/2021 11:08 AM [employer] Temperature 36.6 C (97.9 F) 06/17/2021 11:08 AM [employer] Respiratory Rate 20 06/17/2021 11:0 8 AM [employer] Oxygen Saturation 92% 06/17/2021 11: 08 AM [employer] Inhaled Oxygen Concentration - - Weight 102.9 kg (226 lb 12.8 oz) 06/17/2021 3:37 AM [employer] Height 175.3 cm (5' 9) 06/16/2021 9:48 AM [employer] Body Mass Index 33.49 06/16/2021 9:48 AM [employer] Plan of Treatment Health Maintenance Due Date [...] Comments HEMOGLOBIN A1C Routine 06/12/2021 3:21 PM [employer] COLONOSCOPY REPORT 11/17/2020 9: 46 AM CDT MAMMO SCREEN BILAT W OR WO CAD Routine 10/10/2019 11:13 AM CDT Screening for breast cancer from Last 3 Months or Most Recently Relevant to Health Maintenance Results * (ABNORMAL) HEMOGLOBIN A1C (06/12/2021 3:21 PM [employer]) HEMOGLOBIN A1C 5.9(H) <=5.6 % 06/12/2021 9:51 PM [employer] [facility] [employer] [facility] EST. AVG GLUCOSE, A1C 123 mg/dL 06/12/2021 9:51 PM [employer] [facility] Blood Venipuncture / Unknown 06/12/2021 3:21 PM [employer] 06/12/2021 3:40 PM [employer] Narrative [facility] - 06/12/2021 9:51 PM [employer] HGB A1C INTERPRETATION NORMAL: <5.7% PRE-DIABETES: 5.7 - 6.4% DIABETES: 6.5% OR GREATER us Lena Issa MD CHEMISTRY ORDERABLES F inal Result [facility] CLIA# [id number] [address] [place] [address] * COLONOSCOPY REPORT (11/17/2020 9:46 AM CDT) Narrative Procedure Note Ruiz Torres MD - 11/17/2020 9:45 AM CDT [facility] Endoscopy Patient Name: Jovita Dougherty Procedure Date: [...] of Addenda: [address]; [place] [address] Ruiz Torres MD GI PROCEDURE ORDERABLES Rosalba l Result * MAMMO SCREEN BILAT W OR WO CAD (10/10/2019 11:13 AM CDT) Anatomical Region Laterality Modality Breast Bilateral Mammography 10/10/2019 11:1 4 AM CDT Addenda Addendum by Veronica Abdalla MD on 11/07/2019 4:42 PM CDT ADDENDUM: The patient's prior mammograms from [facility] dated 01/05/2018 and 12/29/2017 are now [...] needs comparison to prior mammograms DICTATION LOCATION: [facility] 10/10/2019 2:06 PM CDT EXAM: BILATERAL [...] needs comparison to prior mammograms DICTATION LOCATION: [facility] Hailey Crespo MD MAMMO ORDERABLES Edited Resul t - Final from Last 3 Months or Most Recently Relevant to Health Maintenance Insurance [facility] [id number] Advance Directives For more information, please contact: [phone] Documents on File Type Date Recorded Patient Middle School Counselor Expl anation Patient Life Sustaining Treatment Doc [...]
--- OUTSIDE RECORDS SUMMARY | 2025-03-17 02:24 | XMS_ITS | Clinical Summary ---
Author Organization [facility] Address [address] [facility] [address] [place] [address] Phone Care Team Providers Care Sheet Metal Production Worker Name Role Phone Vita Sanches NP Primary Care Provider Brendan Metz MD Unavailable [phone] Allergies Active Allergy Reactions Criticality Noted Date Comments Haloperidol Agitation,Other (See comments),Vision changes Medium 04/11/2018 Drooling and walking funny Unable to walk and drools [place] Other (See comments) Low 06/01/2022 Ziprasidone Hcl [...] polyneuropathy, with long-term current use of insulin ([facility]),Type 2 diabetes mellitus with microalbuminuria, with long-term current use of insulin ([facility]) Take 1 tablet (2.5 mg total) by mouth daily 90 tablet 1 01/25/20 24 Active fenofibrate nanocrystallized (TRICOR) 145 mg tabletIndications:H ypertriglyceridemia Take 1 tablet (145 mg total) by mouth daily 90 tablet 4 01/25/20 24 Active lancets (OneTouch Delica Plus Lancet) 30 gauge [facility] USE TO TEST ONCE DAILY 100 each 1 02/14/20 24 Active pen needle, diabetic (BD Joi 2nd Gen Pen Needle) 32 gauge x 5/32 needleIndications:T ype 2 diabetes mellitus with diabetic polyneuropathy, with long-term current use of insulin ([facility]),Type 2 diabetes mellitus with microalbuminuria, with long-term current use of insulin ([facility]),Type 2 diabetes mellitus with hyperglycemia, with long-term current use of insulin ([facility]) INJECT 1 PEN NEEDLE UNDER THE SKIN DAILY 100 each 3 03/14/20 24 Active blood-glucose sensor deviceIndications:T ype 2 diabetes mellitus with diabetic polyneuropathy, with long-term current use of insulin ([facility]) 1 each every 14 (fourteen) days Please provide whichever sensors for CGM that her insurance will cover 2 each 06/20/20 24 Active flash glucose scanning reader (FreeStyle Kalyn 2 [place]) miscIndications:Typ e 2 diabetes mellitus with diabetic polyneuropathy, with long-term current use of insulin ([facility]) 1 each once for 1 dose Please provide whichever CGM reader insurance will cover. 1 each 06/20/20 24 Active metFORMIN (GLUCOPHAGE) 1,000 mg tablet TAKE 1 TABLET(1000 MG) BY MOUTH TWICE DAILY WITH MEALS 180 tablet 1 07/26/20 24 Active albuterol HFA (PROVENTIL HFA,VENTOLIN HFA,PROAIR HFA) 90 mcg/actuation inhalerIndications: Severe persistent asthma without complication ([facility]) Inhale 2 puffs every 4 (four) hours as needed for wheezing or shortness of breath 90 each 1 10/16/19 25 Active fluticasone-umeclid in-vilanter (Trelegy Ellipta) 100-62.5-25 mcg inhalerIndications: Severe persistent asthma without complication ([facility]) Inhale 1 puff daily 90 each 1 10/16/19 25 Active montelukast (SINGULAIR) 10 mg tabletIndications:C hronic rhinitis Take 1 tablet (10 mg total) by mouth nightly 90 tablet 3 10/16/19 25 Active insulin glargine (LANTUS) 100 unit/mL (3 mL) pen for injectionIndication s:Type 2 diabetes mellitus with diabetic polyneuropathy, with long-term current use of insulin ([facility]) Inject 22 Units under the skin daily 10/25/19 25 Active semaglutide (OZEMPIC) 2 mg/dose (8 mg/3 mL) pen injector injectionIndication s:Type 2 diabetes mellitus with diabetic polyneuropathy, with long-term current use of insulin ([facility]) Inject 2 mg under the skin [...] diet Assessment & Plan (06/20/2024 10:13 AM ENTRY DRIVER OPERATOR): Wt Readings from Last 3 Encounters: 06/19/24 [...] referral. Patient would like to see the [facility] doctors instead of the 1 previously referred. [...] just need routine monitoring. She has a construction tech who is working with her. Assessment & [...] plan Assessment & Plan (06/20/2024 7:05 AM ENTRY DRIVER OPERATOR): -chronic, stable -currently takes rosuvastatin 10 mg, [...] plan Assessment & Plan (06/20/2024 10:09 AM ENTRY DRIVER OPERATOR): -chronic, stable -patient currently prescribed albuterol rescue [...] plan Assessment & Plan (06/20/2024 10:03 AM ENTRY DRIVER OPERATOR): Lab Results Component Value Date HGBA1C 5.6 [...] plan Assessment & Plan (06/20/2024 10:10 AM ENTRY DRIVER OPERATOR): -chronic, stable -patient currently takes Abilify 20 [...] disorder (ADHD) 06/01/2022 Overview (06/01/2022): [facility] Assessment & Plan (10/24/2023 6:38 [...] plan Assessment & Plan (06/20/2024 10:10 AM ENTRY DRIVER OPERATOR): -chronic, stable -patient currently takes Abilify 20 [...] plan Assessment & Plan (06/20/2024 7:08 AM ENTRY DRIVER OPERATOR): Lab Results Component Value Date TSH 3.79 [...] plan Assessment & Plan (06/20/2024 10:10 AM ENTRY DRIVER OPERATOR): -chronic, stable -patient currently takes Abilify 20 [...] Description 03/15/2025 10:55 AM CDT Anesthesia Event [facility] Operating Room [address] [place] [address] Adele Jackson MD Alexander, Jeffrey Michael, 03/15/2025 10:40 AM CDT - 03/15/2025 11:40 AM CDT Surgery [facility] Operating Room [address] [place] [address] Myron Espino MD EXCISION OF LIPOMA OF RIGHT ARM 03/15/2025 8:59 AM CDT - 03/15/2025 12:57 PM CDT Hospital Encounter [facility] Operating Room [address] [place] [address] Myron Espino MD Lipoma of right upper extremity Discharge Disposition: Discharge to home or self care 03/08/2025 Nurse Triage [facility] Medical Group Primary Care at [address] [place] [address] Vita Sanches NP 03/08/2025 Telephone [facility] Medical [facility] Primary Care at [address] [place] [phone] Vita Sanches NP Recommendation Request 03/01/2025 Results Follow-Up [facility] Primary Care at [address] [place] [address] Radha Sanchez NP US Upper Extremity Right Limited 02/14/2025 9:30 AM CDT Office Visit [facility] [address] [place] [phone] Myron Espino MD Lipoma of right upper extremity 02/13/2025 ACO Medication Access [facility] Care Organization [address] [place] [address] Maria M Blanchard CPhT 02/08/2025 3:36 PM CDT - 02/08/2025 11:59 PM CDT Hospital Encounter [facility] [address] [place] [address] Lipoma of right upper extremity; Right arm pain Discharge Disposition: Discharge to home or self care 01/30/2025 8:00 AM CDT Office Visit [facility] Primary Care at [address] [address] Vita Sanches NP Type 2 diabetes mellitus with diabetic polyneuropathy, with long-term current use of insulin (HCC) (Primary Dx); Mixed dyslipidemia; Lipoma of right upper extremity; Vitamin D deficiency; Class 1 obesity with body mass index (BMI) of 34.0 to 34.9 in adult, unspecified obesity type, unspecified whether serious comorbidity present 01/30/2025 Telephone [facility] Medical Group Primary Care at [address] [address] Vita Sanches NP Med Refill 01/30/2025 Orders Only [facility] Medical [facility] Primary Care at [address] [phone] Vita Sanches NP Right arm pain (Primary [...] deficit hyperactivity disorder (ADHD) 06/01/2022 care per [facility] Sensorineural hearing loss (SNHL) of both ears [...] ORDERABLES - DEVICE Final Result [facility]EN D[facility] ([place]) [address] [facility] [place] [address] * POCT glucose (03/15/2025 9:28 AM CDT) Glucose, POC 178 70 - 199 mg/dL Blood 03/15/2025 9:28 AM CDT 03/15/2025 9:28 AM CDT Myron Espino MD LAB POCT ORDERABLES - DEVICE Final Result Performing Organization Address [facility] Co de Phone Number LOREN D[facility] ([place]) [address] [facility] [place] [address] * US Upper Extremity Right Limited (02/08/2025 4:01 PM CDT) Anatomical Region Laterality Modality Upper Extremities Right Ultrasound 03/01/2025 7:27 AM CDT Narrative 03/01/2025 7:28 AM CDT EXAM DESCRIPTION: US UPPER EXTREMITY RIGHT LIMITED REASON FOR STUDY: Right posterior upper arm palpable lump for a couple years. TECHNIQUE: A Dynamic assessment was performed of the localized site designated by the patient by the butter fat tester, with selected grayscale and color Doppler images [...] Derrell Simpson M.D. RB: ELIOT Report ID: [id number] Reading Location: [place] [address] Procedure Note Derrell Simpson MD - 03/01/2025 EXAM DESCRIPTION: US UPPER EXTREMITY RIGHT LIMITED REASON FOR STUDY: Right posterior upper arm palpable lump for a couple years. TECHNIQUE: A Dynamic assessment was performed of the localized site designated by the patient by the butter fat tester, with selected grayscale and color Doppler images [...] Derrell Simpson M.D. RB: ELIOT Report ID: [id number] Reading Location: [place] [address] Vita Sanches NP IMG US PROCEDURES Final Result * (ABNORMAL) Hemoglobin A1c (11/14/2024 10:14 AM CDT) Hgb A1C 7.0(H) <5.7 % of total Hgb [facility] Comment: For someone without known [...] NP LAB BLOOD ORDERABLES Fi nal Result [facility] [address] [place] [address] * (ABNORMAL) Lipid panel (11/14/2024 10:14 AM CDT) Pathologist [facility] Cholesterol 167 <200 mg/dL [facility] myranda Sin HDL 30(L) > OR = 50 mg/dL [facility]anda [facility] Triglycerides 545(H) <150 mg/dL [facility] Comment: If a non-fasting specimen [...] of Clin. Lipidol. 2015;9:129-169. LDL mg/dL (calc) [facility] Comment: LDL cholesterol not calculated. [...] LDL-C. Carlos ASENCIO et al. REG. 2013;310(19): 8631-9784 (http://education.Actito.Dashi Intelligence/faq/KXN437) Chol/HDL ratio 5.6(H) <5.0 (calc) [facility] myranda [facility]rick Non-HDL, (LDL+VLDL) 137(H) <130 mg/dL (calc) [facility] Comment: For patients with diabetes plus 1 major ASCVD risk factor, treating to a non-HDL-C goal of <100 mg/dL (LDL-C of <70 mg/dL) is considered a therapeutic option. Blood 11/14/2024 10:1 4 AM CDT 11/14/2024 10:16 AM CDT Narrative [facility] - 11/15/2024 6:37 AM CDT FASTING:YES FASTING: YES us Vita Sanches NP LAB BLOOD ORDERABLES nal Result [facility] [address] [place] [address] * (ABNORMAL) Comprehensive metabolic panel (11/14/2024 10:14 AM CDT) Glucose 248(H) 65 - 99 mg/dL [facility]anda Sin Comment: Fasting reference interval For someone without known diabetes, a glucose value >125 mg/dL indicates that they may have diabetes and this should be confirmed with a follow-up test. BUN 9 7 - 25 mg/dL [facility] Creatinine 0.44(L) 0.50 - 0.99 mg/dL [facility] eGFR 119 > OR = 60 mL/min/1.7 3m2 [facility] BUN/creat ratio 20 6 - 22 (calc) [facility] Sodium 132(L) 135 - 146 mmol/L [facility] Potassium, pl 4.5 3.5 - 5.3 mmol/L [facility] Chloride 97(L) 98 - 110 mmol/L [facility] [employer] my[facility]anda Sin CO2 27 20 - 32 mmol/L [facility] Calcium 8.7 8.6 - 10.2 mg/dL [facility]anda Sin Protein, sr 6.5 6.1 - 8.1 g/dL [facility] Albumin 4.0 3.6 - 5.1 g/dL [facility] GLOBULIN 2.5 1.9 - 3.7 [...] LAB BLOOD ORDERABLES Fi nal Result [facility] [address] [place] [address] * DIAGNOSTIC MAMMOGRAM BILATERAL W ADRI (03/13/2024 [...] Ratio, Urine (01/23/2024 10:29 AM CDT) Pathologist [facility] Albumin Ur 71.6 mg/L Comment: Interpretive Data [...] LAB URINE ORDERABLES F inal Result L[facility] [address] [address] [place] [address] * DIABETES EYE EXAM (04/08/2023) Pathologist [facility] SCRIBED DIABETIC DILATED EYE EXAM Normal Hakeem Rodriguez MD HEALTH MAINTENANCE Final Result * Hepatitis C antibody (12/08/2022 8:52 AM CDT) Pathologist [facility] Hep C Ab Nonreactive Nonreactive [facility] Comment: Interpretive Data Nonreactive: Antibodies to HCV [...] MICROBIOLOGY - GENERAL ORDERABLES Final Result LOREN [facility] [address] [place] [address] * COLONOSCOPY (11/17/2020) Scribed Colonoscopy Normal Comment:at Merc Historical Provider HEALTH MAINTENANCE Final Result from Last 3 Months or Most Recently Relevant to Health Maintenance Insurance [facility] MEDICARE ADVANTAGE [facility] MEDICARE Address: [address] [address] [place] [address] IDPA [facility] MEDICARE ADVANTAGE [facility] MEDICARE Address: [facility] [address] [place] [address] IDPA Care Teams Sheet Metal Production Worker Relationship Specialty Start Date End Date Vita Sanches NP [address] [address] PCP - General Family Medicine 06/19/24 Brendan Metz MD [address] [place] [address] Consulting Physician Pulmonary Disease 01/30/25
--- OUTSIDE RECORDS SUMMARY | 2025-03-17 02:25 | XMS_ITS | Encounter Summary ---
Author Organization [facility] Healthcare Address [address] [place] [address] Care Team Providers Care Securities Adviser Name Role Phone Vita Sanches NP Primary Care Provider Brendan Metz MD Unavailable [phone] Reason for Visit * Reason Onset Date Comments Recommendation Request 03/08/2025 Encounter Details Date Type Department Care Team (Late st Contact Info) Description 03/08/[address] [facility] Medical Group Primary Care at [address] [place] [address] Vita Sanches, KI [address] [place] [address] [address] [place] [address] Recommendation Request Social History Tobacco [...] on filedocumented in this encounter Care Teams Securities Adviser Relationship Specialty Start Date End Date Vita Sanches NP [address] [address] [place] [address] PCP - General Family Medicine 06/19/24 Brendan Metz MD [address] [address] [place] [address] Consulting Physician Pulmonary Disease 01/30/25 documented as of this encounter
--- OUTSIDE RECORDS SUMMARY | 2025-03-17 02:25 | XMS_ITS | Encounter Summary ---
Author Organization [facility] Healthcare Address [address] [place] [address] Care Team Providers Care Ice Plant Operator Name Role Phone Vita Sanches NP Primary Care Provider Brendan Metz MD Unavailable [phone] Reason for Visit * Reason Onset Date Comments Test Results 03/01/2025 Encounter Details Date Type Department Care Team ([facility] st Contact Info) Description 03/01/2025 Results Follow-Up [facility] Primary Care at [address] [place] [address] Radha Sanchez NP [address] [place] [address] [address] [place] [address] [place] Upper Extremity Right Limited [...] on filedocumented in this encounter Care Teams Ice Plant Operator Relationship Specialty Start Date End Date Vita Sanches NP [address] [place] [address] [place] [id number] PCP - General Family Medicine 06/19/24 Brendan Metz MD [address] [place] [address] Consulting Physician Pulmonary Disease 01/30/25 documented as of this encounter
--- OUTSIDE RECORDS SUMMARY | 2025-03-17 02:26 | XMS_ITS | Patient Health Record ---
Author Organization [facility] [employer] [facility] Address [address] [facility] [address] [place] [address] Care Team Providers Care Digital Analytics Manager Name Role Phone Vita Anand Primary Care Provider Un available Sophia Smith Unavailable [phone] Toya Ricci Unavailable [phone] Deana Siegel Unavailable [phone] Allergies Allergen (clinical drug ingredient) Drug/Non Drug Allergy documented on EMR Reaction Allergy Type Onset Date Status ziprasidone Geodon Unknown Drug Allergy 11/02/2023 Acti ve Haldol Unknown Drug Allergy 11/02/2023 Active Results Component Value Reference Range Notes HEMOGLOBIN A1c (496) Reviewed date:11/22/2024 06:15:44 PM Interpretation: Performing Lab:MI[facility] [id number] Administration Mauri Yin [id number] [facility] Notes/Report: PATIENT WILL HAVE DR TO SEND [...] A1c for diagnosis of diabetes for children. CBC (INCLUDES DIFF/PLT) (639 9) Reviewed date:11/22/2024 06:16:04 PM Interpretation: Performing Lab:Layla MCKEON [facility] ViewingF[facility]- [id number] Administration Mauri Yin [id number] Peggy Reese Notes/Report: PATIENT WILL HAVE DR TO SEND [...] MPV 11.3 7.5-12.5 fL ABSOLUTE NEUTROPHILS 4379 [phone] cells/uL ABSOLUTE LYMPHOCYTES 099 928-4357 cells/uL ABSOLUTE MONOCYTES 348 200-950 cells/uL ABSOLUTE EOSINOPHILS 220 15-500 cells/uL ABSOLUTE BASOPHILS 12 0-200 cells/uL NEUTROPHILS 75.5 LYMPHOCYTES 14.5 MONOCYTES 6.0 EOSINOPHILS 3.8 BASOPHILS 0.2 THYROID PANEL WITH TSH (7444 ) Reviewed date:11/22/2024 06:16:54 PM Interpretation: Performing Lab:JOSE BEW [facility]-[id number] Alexis [facility], [id number] Peggy Reese MD Notes/Report: PATIENT WILL HAVE DR TO SEND DUPLICATE TEST TO PRIMARY FASTING:YES MULTIPLE COLLECTION TIMES FOR SAME TEST TYPE. FASTING: YES T3 UPTAKE 28 22-35 % T4 (THYROXINE), TOTAL 7.7 5.1-11.9 mcg/dL FREE T4 INDEX (T7) 2.2 1.4-3.8 TSH 2.11 Reference Range > or = 20 Years 0.40-4.50 Ranges First trimester 0.26-2.66 Second trimester 0.55-2.73 Third trimester 0.43-2.91 Reason For Referral No Information Medications Medication SIG (Take, Route, Frequency, Duration) Notes Start Date End Date Status ONETOUCH DELICA PLUS LANCET 30 GAUGE *Reorder from [facility] for eRx and Interaction Alerts* 11/02/2023 Active Trelegy Ellipta 100-62.5-25 mcg Inhalation *[facility]* 11/02/2023 Active glipiZIDE 5 MG Oral 11/02/2023 Acti ve BD BEAU 2ND GEN PEN NEEDLE 32 GAUGE X *Reorder from [facility] for eRx and Interaction Alerts* 11/02/2023 Active ONETOUCH VERIO REFLECT METER *Reorder from [facility] for eRx and Interaction Alerts* 11/02/2023 Active Montelukast Sodium 10 MG Oral 11/02/2023 Active lamoTRIgine 100 MG 1 tablet Oral twice a day; Duration: 90 days Active BUDESONIDE-FORMOTEROL HFA 80 MCG-4.5 MCG/ACTUATION AEROSOL INHALER *Reorder from [facility] for eRx and Interaction Alerts* 11/02/2023 Active Ozempic (0.25 or 0.5 MG/DOSE) 2 MG/3ML Subcutaneous *Pick strength-form from [facility] for eRX* 11/02/2023 Active Meloxicam 15 MG [...] MG Oral 11/02/2023 Active OneTouch Delica Plus [id number] 11/02/2023 Active Social History Tobacco Use: Social [...] Status Risk Notes Problem Vitamin D deficiency (85553786) Vitamin D deficiency, unspecified (E55.9) Active confirmed Problem Cannabis dependence (47359282) Cannabis dependence, uncomplicated (F12.20) 4 Active confirmed Problem Generalized anxiety disorder (58565868) Generalized anxiety disorder (F41.1) 4 Active confirmed Problem Bipolar I disorder (729515003) Bipolar I disorder (F31.9) Active confirmed Problem 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 Problem Essential hypertension (83817679) Benign essential HTN (I10) Active confirmed Problem Bipolar affective disorder, currently manic, mild (130968967) Bipolar I disorder, most recent episode (or current) manic, mild (F31.11) Active confirmed Vital Signs Heart Rate 82 /min 02/13/2025 Height-cm 175.26 cm 02/13/2025 Blood pressure diastolic 78 mm Hg 02/13/2025 Weight-kg 100.7 kg 02/13/2025 Height 69.00 in 02/13/2025 Blood pressure systolic 119 mm Hg 02/13/2025 Weight 222 lbs 02/13/2025 BMI 32.78 kg/m2 02/13/2025 Encounters Encounter Location Date Provider Diagnosis [facility] [address] [facility] [address] [place] [address] 03/21/2024 Toya Keiry Bipolar disorder, unspecified F31.9 and Generalized anxiety disorder F41.1 [facility] [employer] [facility] [address] [place] [address] 04/04/2024 Toya Keiry Bipolar disorder, unspecified F31.9 and Generalized anxiety disorder F41.1 [facility] [employer] [place] [address] [place] [address] 04/04/2024 Deana Siegel Generalized anxiety disorder F41.1 ; Bipolar disorder, unspecified F31.9 ; Cannabis dependence, uncomplicated F12.20 ; Vitamin D deficiency, unspecified E55.9 and Developmental disorder of scholastic skills, 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 [facility] [address] [place] [address] 04/26/2024 Toya Keiry Bipolar disorder, unspecified F31.9 ; Generalized anxiety disorder F41.1 and Cannabis dependence, uncomplicated F12.20 [facility] [address] [place] [address] 05/10/2024 Toya Keiry Bipolar disorder, unspecified F31.9 ; Generalized anxiety disorder F41.1 and Cannabis dependence, uncomplicated F12.20 [facility] [address] [place] [address] 06/21/2024 Toya Keiry Bipolar disorder, unspecified F31.9 ; Generalized anxiety disorder F41.1 ; Cannabis dependence, uncomplicated F12.20 and Developmental disorder of scholastic skills, 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 [facility] [address] [place] [address] 07/05/2024 Toya Keiry Bipolar disorder, unspecified F31.9 ; Generalized anxiety disorder F41.1 and Cannabis dependence, uncomplicated F12.20 [facility] [address] [place] [address] 07/12/2024 Sophia Hagoleg Bipolar disorder, unspecified F31.9 ; Generalized anxiety disorder F41.1 ; Cannabis dependence, uncomplicated F12.20 ; Vitamin D deficiency, unspecified E55.9 and Developmental disorder of scholastic skills, 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 [facility] [address] [place] [address] 09/12/2024 Toya Keiry Bipolar disorder, unspecified F31.9 ; Generalized anxiety disorder F41.1 ; Cannabis dependence, uncomplicated F12.20 and Developmental disorder of scholastic skills, 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 [facility] [address] [place] [address] 09/12/2024 Sophia Smith Generalized anxiety disorder F41.1 ; Bipolar I disorder F31.9 ; Cannabis dependence, uncomplicated F12.20 ; Caffeine dependence F15.20 ; Vitamin D deficiency, unspecified E55.9 ; Benign hypertension I10 and Other snf (current) drug therapy Z79.899 [place] [address] [place] [address] 09/26/2024 Toya Keiry Bipolar I disorder F31.9 ; Generalized anxiety disorder F41.1 ; Cannabis dependence, uncomplicated F12.20 and Caffeine dependence F15.20 [place] [address] [place] [address] 10/12/2024 Toya Keiry Encounter for screening for depression Z13.31 ; Bipolar I disorder F31.9 ; Generalized anxiety disorder F41.1 ; Cannabis dependence, uncomplicated F12.20 and Caffeine dependence F15.20 [place] [address] [place] [address] 10/26/2024 Toya Keiry Encounter for screening for depression Z13.31 ; Bipolar I disorder F31.9 ; Generalized anxiety disorder F41.1 ; Cannabis dependence, uncomplicated F12.20 and Caffeine dependence F15.20 [place] [address] [place] [address] 11/09/2024 Toya Keiyr Encounter for screening for depression Z13.31 ; Bipolar I disorder F31.9 ; Generalized anxiety disorder F41.1 ; Cannabis dependence, uncomplicated F12.20 and Caffeine dependence F15.20 [place] [address] [facility] [address] [place] [address] 11/09/2024 Sophia Smith Bipolar I disorder F31.9 ; Generalized anxiety disorder F41.1 ; Vitamin D deficiency, unspecified E55.9 ; Cannabis dependence, uncomplicated F12.20 ; Benign essential HTN I10 and Encounter for screening for depression Z13.31 [place] [address] [place] [address] 11/23/2024 Toya Keiry Encounter for screening for depression Z13.31 ; Bipolar I disorder F31.9 ; Generalized anxiety disorder F41.1 ; Cannabis dependence, uncomplicated F12.20 and Caffeine dependence F15.20 [facility] [address] [place] [address] 12/07/2024 Toya Keiry Bipolar I disorder F31.9 ; Generalized anxiety disorder F41.1 ; Cannabis dependence, uncomplicated F12.20 ; Caffeine dependence F15.20 and Encounter for screening for depression Z13.31 [facility] [address] [place] [address] 12/21/2024 Toya Keiry Bipolar I disorder F31.9 ; Generalized anxiety disorder F41.1 ; Cannabis dependence, uncomplicated F12.20 ; Caffeine dependence F15.20 and Encounter for screening for depression Z13.31 [facility] [address] [place] [address] 01/18/2025 Toya Keiry Bipolar I disorder F31.9 ; Generalized anxiety disorder F41.1 ; Cannabis dependence, uncomplicated F12.20 ; Caffeine dependence F15.20 and Encounter for screening for depression Z13.31 [facility] [address] [place] [address] 02/08/2025 Toya Keiry Generalized anxiety disorder F41.1 ; Bipolar I disorder F31.9 ; Cannabis dependence, uncomplicated F12.20 ; Caffeine dependence F15.20 and Encounter for screening for depression Z13.31 [facility] [address] [place] [address] 02/13/2025 Sophia Smith Bipolar I disorder F31.9 ; Generalized anxiety disorder F41.1 ; Cannabis dependence, uncomplicated F12.20 and Vitamin D deficiency, unspecified E55.9 [facility] [address] [place] [address] 03/08/2025 Toyageorges Ricci Generalized anxiety disorder F41.1 ; Bipolar I disorder, most recent episode (or current) manic, mild F31.11 ; Cannabis dependence, uncomplicated F12.20 and Caffeine dependence F15.20 [facility] [address] [place] [address] 07/18/2024 Sophia [facility], [facility] [address] [place] [address] 07/18/2024 Sophia Smith [facility], [facility] [address] [place] [address] 09/10/2024 Sophia [facility], [facility] [address] [place] [address] 01/01/2025 Sophia Smith [facility], [facility] [address] [place] [address] 02/09/2025 Sophia Smith Assessments Encounter Date Diagnosis (ICD Code) Assessment Notes Treatment Notes Treatment Clinical Notes Section Notes 03/21/2024 Bipolar disorder, unspecified (ICD-10 - F31.9) 04/04/2024 Bipolar disorder, unspecified (ICD-10 - F31.9) stable cont abilify 20mg daily cont lamotrigine 100mg BID (200 mg total); take consistently, monitor for rash cont therapy stable, doing well review r/b/se of meds, including metabolic vs belgian diet and lifestyle, is happy with current [...] coverage issues Plan: - Encourage purchase of wyce-ybq-ugnryio vitamin D supplements - No changes to [...] coverage issues Plan: - Encourage purchase of srzs-ixs-zgtbafw vitamin D supplements - No changes to [...] to 's mental health and caregiving for fyijwm-ro-mxs Plan: - Encourage seeking support from friends, [...] coverage issues Plan: - Encourage purchase of lobw-uus-ulhdoca vitamin D supplements General Health and Lab [...] to 's mental health and caregiving for onlmdo-oi-yow Plan: - Encourage seeking support from friends, [...] coverage issues Plan: - Encourage purchase of mjnb-jtp-chrtllp vitamin D supplements General Health and Lab [...] to 's mental health and caregiving for xxhkmq-uw-skn Plan: - Encourage seeking support from friends, [...] coverage issues Plan: - Encourage purchase of hywt-rkk-ywlhzji vitamin D supplements General Health and Lab [...] coverage issues Plan: - Encourage purchase of epag-eae-eoaijiu vitamin D supplements - No changes to [...] coverage issues Plan: - Encourage purchase of qpdg-feo-yjfmrlj vitamin D supplements - No changes to [...] to 's mental health and caregiving for lpifri-pa-fbk Plan: - Encourage seeking support from friends, [...] coverage issues Plan: - Encourage purchase of mcal-tdu-iedlnas vitamin D supplements General Health and Lab [...] coverage issues Plan: - Encourage purchase of zjra-pyu-rbvxjiq vitamin D supplements - No changes to [...] to 's mental health and caregiving for bzuwel-fg-yyb Plan: - Encourage seeking support from friends, [...] coverage issues Plan: - Encourage purchase of yxcw-mpb-quniyoq vitamin D supplements General Health and Lab [...] to 's mental health and caregiving for nkjiwz-rq-hra Plan: - Encourage seeking support from friends, [...] coverage issues Plan: - Encourage purchase of qadr-vzj-boegxsl vitamin D supplements General Health and Lab Monitoring - Recent A1c reported at 5 - Reports needing labs ordered, can't rememebr who ordered whgat last but knows she had an A1C Follow-up in 2 months, sooner if concerns arise. 11/09/2024 Benign essential HTN (ICD-10 - I10) 11/09/2024 Encounter for screening for depression (ICD-10 - Z13.31) 09/12/2024 Other snf (current) drug therapy (ICD-10 - Z79.899) Bipolar Disorder - Reports mood stable and satisfaction with current medication regimen Plan: - Continue Lamotrigine 100 mg twice a day - Continue Abilify 30 mg daily Anxiety - denies any concerns with anxiety presently Plan: - Continue treatment regimen as discussed Family and relationship stressors - Significant stress related to 's mental health and caregiving for wngpsg-dr-rbn Plan: - Encourage seeking support from friends, [...] coverage issues Plan: - Encourage purchase of vfys-fvl-saljubz vitamin D supplements General Health and Lab [...] to 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 Client, her and his son [...] reports she took the younger kids to [place] to see their other parent's family. She [...] Other Client has bee n getting her [place] shopping done. She reports her mother in [...] mg) - Monitor for worsening signs of jauny, including sleep disturbances and irritability - Follow [...] focused on family dysfunction. 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 He was flown to [place] for treatment. He is home now. Client [...] it broke). Client's stepson went back to [place], so this is one stresser off client's list of concerns. Therapist actively listened to client and utilized a cognitive behavioral intervention to help client explore strategies to minimize the stress and frustrations she feels due to the family dynamics. PHQ=0 none ALPESH=0 none 01/18/2025 Other Client reports her hrexno-uu-nau's was 2 weekends ago. She states her 's birthday was last weekend. This past week, client's daghter was having issues with her ex in regard to their child. There is a problem with the AC at her home but she cannot report it to the landlord as client, , and 2 kids are living in the house on her cwzvgz-ff-nom's (who 2 weeks ago) lease. 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 These symptoms could be related to her [...] PANEL, STANDARD (7600) 09/12/2024 COMPREHENSIVE METABOLIC PANEL (51226) VITAMIN D,25-OH,TOTAL,IA (08624) 025 Next Appt Details Provider Name:Toya Ricci , 03/22/2025 09:00:00 AM, [address], [facility] [address], [place], [address], Provider Name:Sophia mae, 05/15/2025 02:00:00 PM, [address], [address], [place], [address], Insurance Providers Payer Name Payer Address Payer Phone Subscriber Number Group Number Insured Name Patient Relationship to Insured Coverage Start Date Coverage End Date [employer] Medicare Replacement/ Advantage - Ppo [address] [address] [place] [address] [id number] JOVITA RICHARDSON Self - patient is the insured [place] [address] [address] [place] [address] [id number] JOVITA RICHARDSON Self - patient is the [...] Surgical History Surgery Date(Month/Year) Carpal tunnel surgery (81182) left, ulna r tunnel surgery as well Plastic surgery ss (G4027) face, as chil d Operative procedure on knee (1414060) Hysterectomy/revise vagina (17957) 08/01 Hospitalization History Reason Date(Month/Year) surgical
--- NOTE | 2025-03-17 02:31 | ED_ITS ---
HPI - Wound/Laceration General Chief Complaint: Wound/Laceration Stated Complaint: surgical incisions opened Time Seen by Provider: 03/17/25 01:47 History of Present Illness HPI narrative: 49-year-old female that had a lipoma removed on the back of her right arm several days ago. She states that she accidentally snagged her clothing on the incision and it popped open. Bleeding was controlled at scene. She is requesting wound evaluation. No symptoms otherwise. She was otherwise in her normal state of health. Related Data Allergies Allergy/AdvReac Type Severity Reaction Status Date / Time haloperidol Allergy Mild DROOLING, Verified 09/26/22 19:06 UNSTEADY GAIT, BLURRED VISION peach Allergy Mild RASH Verified 09/26/22 19:06 adhesive tape Allergy Unknown RASH Verified 09/26/22 19:06 divalproex sodium AdvReac Unknown HAIR LOSS Verified 09/26/22 19:06 ZIPRASIDONE HCL Allergy Mild AKASTHESIAS Uncoded 09/26/22 19:06 ZIPRASIDONE MESYLATE Allergy Mild AKASTHESIAS Uncoded 09/26/22 19:06 Dust Allergy Unknown NASAL Uncoded 09/26/22 19:06 CONGESTION Molds and Smuts Allergy Unknown NASAL Uncoded 09/26/22 19:06 CONGESTION Review of Systems Review of Systems: As reviewed above in HPI Exam Narrative: GENERAL: [Well-appearing, well-nourished, and in no acute distress.] HEAD: [Normocephalic, atraumatic.] EYES: [PERRLA and EOMI.] NECK: Supple. CHEST: [No respiratory distress.] EXTREMITIES: Normal range of motion. [No edema.] SKIN: On the back of the right upper extremity there is a 4 cm surgical scar that is well approximated and only the superior aspect approximate 1.5 cm has some minor dehiscence were previous suture material was lying. No active bleeding or extrusion of material or under lying contents. No tenderness or obvious signs of infection. NEURO: [No focal deficits]. Alert and oriented [x3.] PSYCH: [Normal mood and affect.] Course Vital Signs Vital signs: Vital Signs Temperature 36.8 C 03/16/25 23:12 Pulse Rate 75 03/16/25 23:12 Respiratory Rate 16 03/16/25 23:12 Blood Pressure 155/88 H 03/16/25 23:12 Pulse Oximetry 100 03/16/25 23:12 Oxygen Delivery Room Air 03/16/25 23:12 Temperature 36.8 C 03/16/25 23:12 Pulse Rate 75 03/16/25 23:12 Respiratory Rate 16 03/16/25 23:12 Blood Pressure 155/88 H 03/16/25 23:12 Pulse Oximetry 100 03/16/25 23:12 Oxygen Delivery Room Air 03/16/25 23:12 Procedures Laceration Laceration 1: Date: 03/17/25 Time: 02:20 Site: upper extremity Side (If applicable): right Size (cm): 1.5 Description: linear Depth: simple, single layer Local Anesthetic: none Pre-repair: wound explored and deep structures intact ====== Skin Level ====== Skin layer closed with: dermabond and steri strips ====== Subcutaneous Layer ====== ====== Muscle Layer ====== ====== Tendon Layer ====== Dressing: non-adhering dressing overtop MDM - Wound/Laceration MDM Narrative Medical decision making narrative: 49-year-old female that had a lipoma removed on the back of her right arm several days ago. She states that she accidentally snagged her clothing on the incision and it popped open. Bleeding was controlled at scene. She is requesting wound evaluation. No symptoms otherwise. She was otherwise in her normal state of health. On the back of the right upper extremity there is a 4 cm surgical scar that is well approximated and only the superior aspect approximate 1.5 cm has some minor dehiscence where previous suture material was lying. No active bleeding or extrusion of material or under lying contents. No tenderness or obvious signs of infection. Wound repaired with Dermabond and Steri-Strips good approximation. Hemostasis without any bleeding. No symptoms this time safe for discharge with wound care instructions and follow-up as for her doctor recommended. Discharge Plan Discharge Clinical Impression: Wound dehiscence Patient Disposition: Home Condition: Stable Instructions: Antibiotic Form, Care For Your Stitches (ED), Skin Adhesive Care (ED), Skin Adhesive Strips (ED) Additional Instructions: Keep the area covered and clean without any exposure to water for over 24 hours to allow the skin glue to heal. The Steri-Strips in skin glue will fall off naturally after several days. Follow-up with regular doctor and return with any emergent concerns. Patient Language: Swedish Prescriptions: No Action amoxicillin-pot clavulanate 875-125 mg tablet 1 tablet PO Q12H Qty: 10 0RF doxycycline hyclate 100 mg capsule 100 mg PO BID Qty: 10 0RF benzonatate 100 mg capsule 100 mg PO BID PRN (Reason: cough) Qty: 14 0RF albuterol sulfate 1.25 mg/3 mL solution for nebulization 1.25 mg inhalation Q4H Qty: 75 0RF Follow-up/Referrals: PHYSICIAN,ASSOCIATE APPLICATION DEVELOPER [Primary Care Provider] - Time of Disposition: 02:28
[2025-03-17 03:11] VITALS: BP 130/68; PULSE 76; RESP 16; TEMP 37; O2SAT 98
== END 2025-03-17 03:12 | disposition home or self-care (01) ==
PROVIDERS: Emergency Provider Student in an Organized Health Care Education/Training Program
DX: T81.31XA Disruption of external operation (surgical) wound, not elsewhere classified, initial encounter (principal); Y83.8 Other surgical procedures as the cause of abnormal reaction of the patient, or of later complication, without mention of misadventure at the time of the procedure
CPT/HCPCS: 12001; 12020; 99282